=== PATIENT | female | born 1935 | race Caucasian/White ===

== ENCOUNTER 2016-12-17 19:53 | Emergency (ER) | payer MEDICARE, OTHER ==
[~2016-12-17] VITALS: Ht 147.3 cm; Wt 40.8 kg
[~2016-12-17 19:53] MED LIST: ACET500T68 PO; AMLO10TA4 PO; AMLO2.5T PO; ANAS1TAB PO; ATOR10TA60 PO; BENA20TA2 PO; CHOL100016 PO; CYAN10005 PO; FENO48TA2 PO; FERR-26 PO; GENT30OI2 TP; GLIM4TAB2 PO; HYDR12.58 PO; LEVO750T31 PO; MELO7.5T29 PO; METF-620 PO; METF750T2 PO; OMEP40CA5 PO; ONDA4TAB12 PO; PANT40TA3 PO; POTASSIUM CHLO10 MEQ PO; PROC5TAB PO; SILV20CR14 TP; SITA100T PO; SITA50TA PO; SUCR1TAB PO; [UNRECOGNIZED DRUG - CODE] TP
[2016-12-17] MEDS ORDERED: DIPHTH,PERTUSS(ACELL),TET TOX 0.5 ML DISP.SYRIN. VAX IM ONE (20:15)
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
--- NOTE | 2016-12-17 21:33 | RAD ---
CT Head W/O Contrast: History: FALL, HEAD PAIN, PRIOR SENT Comparison: October 23, 2014 Axial images were obtained without contrast. There is moderate diffuse atrophy. There is no mass effect, extraaxial fluid collections or hydrocephalus. There is no focal loss of lino-white matter distinction to suggest acute ischemia, i.e. stroke. Impression: No acute findings. End impression CT C-Spine without contrast: Clinical History: FALL, HEAD PAIN, PRIOR SENT Technique: Axial helical images of the cervical spine were obtained without contrast, axial coronal and sagittal reconstruction was performed. Findings: There is no loss of vertebral body stature. There is no prevertebral soft tissue swelling. There is grade 1 anterolisthesis of C7 on T1. This is unchanged from the April 09, 2014 CT. There is straightening of the normal cervical lordosis which can be positional or could be chronic. The C1-C2 relationship is normal. The visualized osseous structures appear normal. Evaluation of the central canal is limited without contrast. There is multiple posterior disc bulges resulting in flattening of the thecal sac. There does not appear to be gross flattening of the cervical cord. There is moderate narrowing of multiple neuroforamen. Impression: No acute findings. Clinical correlation suggested. PQRS Compliance Statement: One or more of the following individualized dose reduction techniques were utilized for this examination: 1. Automated exposure control 2. Adjustment of the mA and/or kV according to patient size 3. Use of iterative reconstruction technique Electronically signed by: Oswald Means III, MD (12/17/2016 9:30 PM) [facility]
[2016-12-17 21:50] VITALS: BP 122/58
== END 2016-12-17 21:55 | disposition home or self-care (01) ==
LOC: ER 19:53
DX: S00.83XA Contusion of other part of head, initial encounter (principal); F03.90 Unspecified dementia, unspecified severity, without behavioral disturbance, psychotic disturbance, mood disturbance, and anxiety; E11.9 Type 2 diabetes mellitus without complications; I10 Essential (primary) hypertension; E78.00 Pure hypercholesterolemia, unspecified; M19.90 Unspecified osteoarthritis, unspecified site; Z87.820 Personal history of traumatic brain injury; Z88.0 Allergy status to penicillin; Z88.2 Allergy status to sulfonamides; Z88.6 Allergy status to analgesic agent; Z88.1 Allergy status to other antibiotic agents; W07.XXXA Fall from chair, initial encounter; Y93.89 Activity, other specified; Y99.8 Other external cause status; Y92.89 Other specified places as the place of occurrence of the external cause
CPT/HCPCS: 70450; 72125; 90471; 90715; 99284-25

== ENCOUNTER → 2017-01-25 | Outpatient (CLI) | payer MEDICARE, OTHER | END | disposition home or self-care (01) | LOC: PMGWOUND 09:09 | PROVIDERS: ATTEND Preventive Medicine Undersea and Hyperbaric Medicine | DX: E11.622 Type 2 diabetes mellitus with other skin ulcer (principal); L98.491 Non-pressure chronic ulcer of skin of other sites limited to breakdown of skin; L89.223 Pressure ulcer of left hip, stage 3; L89.152 Pressure ulcer of sacral region, stage 2; F03.90 Unspecified dementia, unspecified severity, without behavioral disturbance, psychotic disturbance, mood disturbance, and anxiety; I10 Essential (primary) hypertension; K21.9 Gastro-esophageal reflux disease without esophagitis; M19.90 Unspecified osteoarthritis, unspecified site; Z87.01 Personal history of pneumonia (recurrent); Z85.3 Personal history of malignant neoplasm of breast | CPT/HCPCS: 99214 ==

== ENCOUNTER → 2017-02-02 | Outpatient (CLI) | payer MEDICARE, OTHER | END | disposition home or self-care (01) | LOC: PMGWOUND 08:55 | PROVIDERS: ATTEND Emergency Medicine Undersea and Hyperbaric Medicine | DX: L89.223 Pressure ulcer of left hip, stage 3 (principal); L89.152 Pressure ulcer of sacral region, stage 2; E11.622 Type 2 diabetes mellitus with other skin ulcer; L98.491 Non-pressure chronic ulcer of skin of other sites limited to breakdown of skin; F03.90 Unspecified dementia, unspecified severity, without behavioral disturbance, psychotic disturbance, mood disturbance, and anxiety; K21.9 Gastro-esophageal reflux disease without esophagitis; M19.90 Unspecified osteoarthritis, unspecified site; E78.00 Pure hypercholesterolemia, unspecified; Z85.3 Personal history of malignant neoplasm of breast | CPT/HCPCS: 99214 ==

== ENCOUNTER → 2017-02-09 | Outpatient (CLI) | payer MEDICARE, OTHER | END | disposition home or self-care (01) | LOC: PMGWOUND 08:52 | PROVIDERS: ATTEND Emergency Medicine Undersea and Hyperbaric Medicine | DX: L89.152 Pressure ulcer of sacral region, stage 2 (principal); E11.622 Type 2 diabetes mellitus with other skin ulcer; L89.223 Pressure ulcer of left hip, stage 3; F03.90 Unspecified dementia, unspecified severity, without behavioral disturbance, psychotic disturbance, mood disturbance, and anxiety; I10 Essential (primary) hypertension; K21.9 Gastro-esophageal reflux disease without esophagitis; M19.90 Unspecified osteoarthritis, unspecified site; Z85.3 Personal history of malignant neoplasm of breast | CPT/HCPCS: 99214 ==

== ENCOUNTER → 2017-02-16 | Outpatient (CLI) | payer MEDICARE, OTHER | END | disposition home or self-care (01) | LOC: PMGWOUND 08:47 | PROVIDERS: ATTEND Emergency Medicine Undersea and Hyperbaric Medicine | DX: L89.223 Pressure ulcer of left hip, stage 3 (principal); I10 Essential (primary) hypertension; K21.9 Gastro-esophageal reflux disease without esophagitis; F03.90 Unspecified dementia, unspecified severity, without behavioral disturbance, psychotic disturbance, mood disturbance, and anxiety; M19.90 Unspecified osteoarthritis, unspecified site; E78.00 Pure hypercholesterolemia, unspecified; Z85.3 Personal history of malignant neoplasm of breast | CPT/HCPCS: 97597 ==

== ENCOUNTER → 2017-02-23 | Outpatient (CLI) | payer MEDICARE, OTHER | END | disposition home or self-care (01) | LOC: PMGWOUND 09:19 | PROVIDERS: ATTEND Emergency Medicine Undersea and Hyperbaric Medicine | DX: L89.223 Pressure ulcer of left hip, stage 3 (principal); I10 Essential (primary) hypertension; K21.9 Gastro-esophageal reflux disease without esophagitis; E78.00 Pure hypercholesterolemia, unspecified; F03.90 Unspecified dementia, unspecified severity, without behavioral disturbance, psychotic disturbance, mood disturbance, and anxiety; M19.90 Unspecified osteoarthritis, unspecified site; Z85.3 Personal history of malignant neoplasm of breast | CPT/HCPCS: 97597 ==

== ENCOUNTER → 2017-03-02 | Outpatient (CLI) | payer MEDICARE, OTHER | END | disposition home or self-care (01) | LOC: PMGWOUND 08:54 | PROVIDERS: ATTEND Emergency Medicine Undersea and Hyperbaric Medicine | DX: L89.223 Pressure ulcer of left hip, stage 3 (principal); I10 Essential (primary) hypertension; K21.9 Gastro-esophageal reflux disease without esophagitis; E78.00 Pure hypercholesterolemia, unspecified; F03.90 Unspecified dementia, unspecified severity, without behavioral disturbance, psychotic disturbance, mood disturbance, and anxiety; M19.90 Unspecified osteoarthritis, unspecified site; Z85.3 Personal history of malignant neoplasm of breast | CPT/HCPCS: 99214 ==

== ENCOUNTER → 2017-03-16 | Outpatient (CLI) | payer MEDICARE, OTHER | END | disposition home or self-care (01) | LOC: PMGWOUND 08:45 | PROVIDERS: ATTEND Emergency Medicine Undersea and Hyperbaric Medicine | DX: L89.223 Pressure ulcer of left hip, stage 3 (principal); I10 Essential (primary) hypertension; K21.9 Gastro-esophageal reflux disease without esophagitis; E78.00 Pure hypercholesterolemia, unspecified; F03.90 Unspecified dementia, unspecified severity, without behavioral disturbance, psychotic disturbance, mood disturbance, and anxiety; M19.90 Unspecified osteoarthritis, unspecified site; Z85.3 Personal history of malignant neoplasm of breast | CPT/HCPCS: 99214 ==

== ENCOUNTER → 2017-03-30 | Outpatient (CLI) | payer MEDICARE, OTHER | END | disposition home or self-care (01) | LOC: PMGWOUND 08:22 | PROVIDERS: ATTEND Emergency Medicine Undersea and Hyperbaric Medicine | DX: E11.622 Type 2 diabetes mellitus with other skin ulcer (principal); L89.223 Pressure ulcer of left hip, stage 3; I10 Essential (primary) hypertension; L98.491 Non-pressure chronic ulcer of skin of other sites limited to breakdown of skin; K21.9 Gastro-esophageal reflux disease without esophagitis; F03.90 Unspecified dementia, unspecified severity, without behavioral disturbance, psychotic disturbance, mood disturbance, and anxiety; M19.90 Unspecified osteoarthritis, unspecified site; E78.00 Pure hypercholesterolemia, unspecified; Z85.3 Personal history of malignant neoplasm of breast | CPT/HCPCS: 99214 ==

== ENCOUNTER → 2017-05-04 | Outpatient (CLI) | payer MEDICARE, OTHER | END | disposition home or self-care (01) | LOC: PMGWOUND 09:08 | DX: E11.622 Type 2 diabetes mellitus with other skin ulcer (principal); L89.223 Pressure ulcer of left hip, stage 3; L98.491 Non-pressure chronic ulcer of skin of other sites limited to breakdown of skin; L89.323 Pressure ulcer of left buttock, stage 3; L98.411 Non-pressure chronic ulcer of buttock limited to breakdown of skin; I10 Essential (primary) hypertension; K21.9 Gastro-esophageal reflux disease without esophagitis; F03.90 Unspecified dementia, unspecified severity, without behavioral disturbance, psychotic disturbance, mood disturbance, and anxiety; M19.90 Unspecified osteoarthritis, unspecified site; E78.00 Pure hypercholesterolemia, unspecified; Z85.3 Personal history of malignant neoplasm of breast | CPT/HCPCS: 99214 ==

== ENCOUNTER → 2017-05-18 | Outpatient (CLI) | payer MEDICARE, OTHER | END | disposition home or self-care (01) | LOC: PMGWOUND 08:47 | DX: E11.622 Type 2 diabetes mellitus with other skin ulcer (principal); L89.223 Pressure ulcer of left hip, stage 3; L98.491 Non-pressure chronic ulcer of skin of other sites limited to breakdown of skin; L89.323 Pressure ulcer of left buttock, stage 3; L98.411 Non-pressure chronic ulcer of buttock limited to breakdown of skin; I10 Essential (primary) hypertension; K21.9 Gastro-esophageal reflux disease without esophagitis; M19.90 Unspecified osteoarthritis, unspecified site; E78.00 Pure hypercholesterolemia, unspecified; F03.90 Unspecified dementia, unspecified severity, without behavioral disturbance, psychotic disturbance, mood disturbance, and anxiety; Z85.3 Personal history of malignant neoplasm of breast | CPT/HCPCS: 99215 ==

== ENCOUNTER → 2017-05-24 | Outpatient (CLI) | payer MEDICARE, OTHER | END | disposition home or self-care (01) | LOC: PMGWOUND 09:09 | DX: E11.622 Type 2 diabetes mellitus with other skin ulcer (principal); L89.223 Pressure ulcer of left hip, stage 3; L98.491 Non-pressure chronic ulcer of skin of other sites limited to breakdown of skin; L89.323 Pressure ulcer of left buttock, stage 3; L98.411 Non-pressure chronic ulcer of buttock limited to breakdown of skin; I10 Essential (primary) hypertension; K21.9 Gastro-esophageal reflux disease without esophagitis; M19.90 Unspecified osteoarthritis, unspecified site; E78.00 Pure hypercholesterolemia, unspecified; F03.90 Unspecified dementia, unspecified severity, without behavioral disturbance, psychotic disturbance, mood disturbance, and anxiety; Z85.3 Personal history of malignant neoplasm of breast | CPT/HCPCS: 97597 ==

== ENCOUNTER → 2017-05-31 | Outpatient (CLI) | payer MEDICARE, OTHER | END | disposition home or self-care (01) | LOC: PMGWOUND 08:53 | DX: E11.622 Type 2 diabetes mellitus with other skin ulcer (principal); L89.223 Pressure ulcer of left hip, stage 3; L98.491 Non-pressure chronic ulcer of skin of other sites limited to breakdown of skin; L89.323 Pressure ulcer of left buttock, stage 3; L98.411 Non-pressure chronic ulcer of buttock limited to breakdown of skin; I10 Essential (primary) hypertension; K21.9 Gastro-esophageal reflux disease without esophagitis; M19.90 Unspecified osteoarthritis, unspecified site; E78.00 Pure hypercholesterolemia, unspecified; F03.90 Unspecified dementia, unspecified severity, without behavioral disturbance, psychotic disturbance, mood disturbance, and anxiety; Z85.3 Personal history of malignant neoplasm of breast | CPT/HCPCS: 97597 ==

== ENCOUNTER → 2017-06-08 | Outpatient (CLI) | payer MEDICARE, OTHER | END | disposition home or self-care (01) | LOC: PMGWOUND 08:34 | DX: E11.622 Type 2 diabetes mellitus with other skin ulcer (principal); L89.223 Pressure ulcer of left hip, stage 3; L98.491 Non-pressure chronic ulcer of skin of other sites limited to breakdown of skin; I10 Essential (primary) hypertension; K21.9 Gastro-esophageal reflux disease without esophagitis; M19.90 Unspecified osteoarthritis, unspecified site; E78.00 Pure hypercholesterolemia, unspecified; F03.90 Unspecified dementia, unspecified severity, without behavioral disturbance, psychotic disturbance, mood disturbance, and anxiety; Z85.3 Personal history of malignant neoplasm of breast | CPT/HCPCS: 99214 ==

== ENCOUNTER 2017-06-09 11:58 | Inpatient (IN) | payer MEDICARE, OTHER ==
[2017-06-09 12:10] LABS: POC GLUCOSE 37 mg/dL (70-99)
[2017-06-09] MEDS ORDERED: DEXTROSE 50% 25 GM / 50ML DISP.SYRIN. IV ×2 (12:12→15:30)
[2017-06-09] MEDS: DEXTROSE 50% 25 GM / 50ML DISP.SYRIN. IV (12:17)
[2017-06-09] MEDS: IV NORMAL SALINE 1000ML BAG 1,000 ML IV (12:18)
[2017-06-09 12:19] LABS: ADD MAN DIFF? NO
[2017-06-09 12:21] LABS: BASO % 0 % (0-3); EOS # 0.1 x10^3/uL (0.0-0.7); EOS % 1 % (0-3); HEMOGLOBIN 11.3 g/dL (12.0-15.5); LYMPH # 1.6 x10^3/uL (1.0-4.8); LYMPH % 19 % (24-48); MEAN CORPUSCULAR HEMOGLOBIN 29 pg (25-35); MEAN CORPUSCULAR HGB CONC 33 g/dL (31-37); MEAN CORPUSCULAR VOLUME 86 fL (79-100); MONO # 0.6 x10^3/uL (0.0-1.1); MONO % 7 % (0-9); NEUT # 6.3 x10^3uL (1.8-7.7); NEUT % 74 % (31-73); PLATELET COUNT 365 x10^3/uL (140-400); RED BLOOD COUNT 3.93 x10^6/uL (3.50-5.40); RED CELL DISTRIBUTION WIDTH 14.1 % (11.5-14.5); WHITE BLOOD COUNT 8.5 x10^3/uL (4.0-11.0)
[2017-06-09 12:33] LABS: ANION GAP 8 (6-14); BLOOD UREA NITROGEN 22 mg/dL (7-20); BUN/CREATININE RATIO 24 (6-20); CALCIUM 9.1 mg/dL (8.5-10.1); CARBON DIOXIDE 30 mmol/L (21-32); CHLORIDE 101 mmol/L (98-107); CREATININE 0.9 mg/dL (0.6-1.0); GFR 59.9; GLUCOSE 124 mg/dL (70-99); POTASSIUM 3.5 mmol/L (3.5-5.1); SODIUM 139 mmol/L (136-145)
[2017-06-09 12:40] LABS: ALBUMIN 3.5 g/dL (3.4-5.0); ALBUMIN/GLOBULIN RATIO 0.9 (1.0-1.7); ALK PHOS 79 U/L (46-116); ALT (SGPT) 14 U/L (14-59); AST (SGOT) 15 U/L (15-37); MAGNESIUM 1.4 mg/dL (1.8-2.4); TOTAL BILIRUBIN 0.2 mg/dL (0.2-1.0); TOTAL PROTEIN 7.2 g/dL (6.4-8.2)
[2017-06-09 13:21] LABS: POC GLUCOSE 190 mg/dL (70-99)
[2017-06-09 14:20] LABS: BILIRUBIN,URINE NEGATIVE (NEG); CLARITY,URINE CLEAR; COLOR,URINE YELLOW; GLUCOSE,URINE 500 mg/dL (NEG); NITRITE,URINE NEGATIVE (NEG); PH,URINE 7.5; PROTEIN,URINE NEGATIVE (NEG-TRACE); UROBILINOGEN,URINE 0.2 mg/dL (0.2 mg/dL)
[2017-06-09 14:38] LABS: BACTERIA,URINE MANY /HPF (0-FEW); RBC,URINE 0 /HPF (0-2)
[2017-06-09 14:41] LABS: POC GLUCOSE 243 mg/dL (70-99)
[2017-06-09] MEDS ORDERED: IV NORMAL SALINE 1000ML BAG 1,000 ML IV (15:19)
[2017-06-09] MEDS ORDERED: ACETAMINOPHEN 325 MG TABLET. PO (15:30)
[2017-06-09] MEDS ORDERED: ONDANSETRON PF 4 MG/2 ML VIAL. IV (15:30)
[2017-06-09 17:26] LABS: POC GLUCOSE 286 mg/dL (70-99)
[2017-06-09] MEDS ORDERED: ONDANSETRON ODT 4 MG TAB.RAPDIS. PO (18:30)
[2017-06-09] MEDS: ATORVASTATIN CALCIUM 10 MG TABLET. PO (19:54)
[2017-06-09] MEDS: FERROUS SULFATE 325 MG TABLET. PO (19:54)
[2017-06-09 20:55] LABS: POC GLUCOSE 235 mg/dL (70-99)
[2017-06-09] MEDS: SUCRALFATE 1 GM TABLET. PO (21:57)
[2017-06-10 05:25] LABS: ADD MAN DIFF? NO
[2017-06-10 06:24] LABS: BASO % 0 % (0-3); EOS % 0 % (0-3); HEMATOCRIT 28.7 % (36.0-47.0); HEMOGLOBIN 9.5 g/dL (12.0-15.5); LYMPH # 1.1 x10^3/uL (1.0-4.8); LYMPH % 10 % (24-48); MEAN CORPUSCULAR HEMOGLOBIN 28 pg (25-35); MEAN CORPUSCULAR HGB CONC 33 g/dL (31-37); MEAN CORPUSCULAR VOLUME 85 fL (79-100); MONO # 0.6 x10^3/uL (0.0-1.1); MONO % 5 % (0-9); NEUT # 9.3 x10^3uL (1.8-7.7); NEUT % 85 % (31-73); PLATELET COUNT 290 x10^3/uL (140-400); RED BLOOD COUNT 3.36 x10^6/uL (3.50-5.40); RED CELL DISTRIBUTION WIDTH 13.9 % (11.5-14.5)
[2017-06-10 06:41] LABS: ALBUMIN 2.9 g/dL (3.4-5.0); ALBUMIN/GLOBULIN RATIO 0.9 (1.0-1.7); ALK PHOS 73 U/L (46-116); ALT (SGPT) 11 U/L (14-59); ANION GAP 11 (6-14); AST (SGOT) 11 U/L (15-37); BLOOD UREA NITROGEN 18 mg/dL (7-20); BUN/CREATININE RATIO 23 (6-20); CALCIUM 8.9 mg/dL (8.5-10.1); CARBON DIOXIDE 26 mmol/L (21-32); CHLORIDE 102 mmol/L (98-107); CREATININE 0.8 mg/dL (0.6-1.0); GFR 68.7; GLUCOSE 82 mg/dL (70-99); POTASSIUM 3.3 mmol/L (3.5-5.1); SODIUM 139 mmol/L (136-145); TOTAL BILIRUBIN 0.3 mg/dL (0.2-1.0); TOTAL PROTEIN 6.2 g/dL (6.4-8.2)
[2017-06-10] MEDS: SUCRALFATE 1 GM TABLET. PO ×2 (08:41→21:27)
[2017-06-10] MEDS: POTASSIUM CHLORIDE 10 MEQ TABLET.ER. PO (08:41)
[2017-06-10] MEDS: FENOFIBRATE 54 MG TABLET. PO (08:41)
[2017-06-10] MEDS: PANTOPRAZOLE 40 MG TABLET.DR. PO (08:42)
[2017-06-10] MEDS: FERROUS SULFATE 325 MG TABLET. PO ×2 (08:43→21:27)
[2017-06-10] MEDS ORDERED: LISINOPRIL 10 MG TABLET PO (09:00)
[2017-06-10] MEDS ORDERED: amLODIPine BESYLATE 10 MG TABLET PO (09:00)
[2017-06-10 09:26] LABS: POC GLUCOSE 67 mg/dL (70-99)
[2017-06-10 10:04] LABS: POC GLUCOSE 147 mg/dL (70-99)
[2017-06-10 11:50] LABS: POC GLUCOSE 258 mg/dL (70-99)
[2017-06-10 16:53] LABS: POC GLUCOSE 333 mg/dL (70-99)
[2017-06-10 20:10] LABS: HEMOGLOBIN A1C 6.9 % (4.8-5.6)
[2017-06-10 21:09] LABS: POC GLUCOSE 365 mg/dL (70-99)
[2017-06-10] MEDS: ATORVASTATIN CALCIUM 10 MG TABLET. PO (21:27)
[2017-06-10] MEDS: metFORMIN XR 500 MG TAB.ER.24H PO (22:57)
[2017-06-10] MEDS: INSULIN ASPART 300 UNITS/3 ML INSULN.PEN SQ (23:00)
[2017-06-11 07:59] LABS: POC GLUCOSE 101 mg/dL (70-99)
[2017-06-11] MEDS: INSULIN ASPART 300 UNITS/3 ML INSULN.PEN SQ ×2 (08:00→12:10)
[2017-06-11] MEDS ORDERED: INSULIN ASPART 300 UNITS/3 ML INSULN.PEN SQ (08:00)
[2017-06-11] MEDS: PANTOPRAZOLE 40 MG TABLET.DR. PO (08:39)
[2017-06-11] MEDS: SUCRALFATE 1 GM TABLET. PO (08:39)
[2017-06-11] MEDS: FERROUS SULFATE 325 MG TABLET. PO (08:39)
[2017-06-11] MEDS: LINAGLIPTIN 5 MG TABLET PO (08:40)
[2017-06-11] MEDS: POTASSIUM CHLORIDE 10 MEQ TABLET.ER. PO (08:40)
[2017-06-11 11:37] LABS: POC GLUCOSE 221 mg/dL (70-99)
== END 2017-06-11 14:45 | disposition home health service (06) | DRG 643 ==
LOC: ER 11:58 → 5 SOUTH 14:49
PROVIDERS: Internal Medicine
DX: E16.0 Drug-induced hypoglycemia without coma (principal); E43 Unspecified severe protein-calorie malnutrition; E11.9 Type 2 diabetes mellitus without complications; F03.90 Unspecified dementia, unspecified severity, without behavioral disturbance, psychotic disturbance, mood disturbance, and anxiety; E78.00 Pure hypercholesterolemia, unspecified; I10 Essential (primary) hypertension; M19.90 Unspecified osteoarthritis, unspecified site; Z88.6 Allergy status to analgesic agent; Z88.1 Allergy status to other antibiotic agents; Z88.0 Allergy status to penicillin
CPT/HCPCS: 36415; 71045; 80053; 81001; 82962; 83036; 83735; 85025; 87086; 93005; 96361; 96374; 99291; 99291-25; J1815; J7030; J7042

== ENCOUNTER → 2017-06-14 | Outpatient (CLI) | payer MEDICARE, OTHER | END | disposition home or self-care (01) | LOC: PMGWOUND 09:00 | DX: E11.622 Type 2 diabetes mellitus with other skin ulcer (principal); L98.491 Non-pressure chronic ulcer of skin of other sites limited to breakdown of skin; L89.223 Pressure ulcer of left hip, stage 3; L98.411 Non-pressure chronic ulcer of buttock limited to breakdown of skin; L89.322 Pressure ulcer of left buttock, stage 2; I10 Essential (primary) hypertension; K21.9 Gastro-esophageal reflux disease without esophagitis; M19.90 Unspecified osteoarthritis, unspecified site; E78.00 Pure hypercholesterolemia, unspecified; F03.90 Unspecified dementia, unspecified severity, without behavioral disturbance, psychotic disturbance, mood disturbance, and anxiety; Z85.3 Personal history of malignant neoplasm of breast | CPT/HCPCS: 97597 ==

== ENCOUNTER → 2017-06-28 | Outpatient (CLI) | payer MEDICARE, OTHER | END | disposition home or self-care (01) | LOC: PMGWOUND 09:07 | DX: E11.622 Type 2 diabetes mellitus with other skin ulcer (principal); L98.491 Non-pressure chronic ulcer of skin of other sites limited to breakdown of skin; L89.223 Pressure ulcer of left hip, stage 3; L98.411 Non-pressure chronic ulcer of buttock limited to breakdown of skin; L89.153 Pressure ulcer of sacral region, stage 3; I10 Essential (primary) hypertension; K21.9 Gastro-esophageal reflux disease without esophagitis; M19.90 Unspecified osteoarthritis, unspecified site; E78.00 Pure hypercholesterolemia, unspecified; F03.90 Unspecified dementia, unspecified severity, without behavioral disturbance, psychotic disturbance, mood disturbance, and anxiety; Z85.3 Personal history of malignant neoplasm of breast | CPT/HCPCS: 97597 ==

== ENCOUNTER → 2017-07-12 | Outpatient (CLI) | payer MEDICARE, OTHER | END | disposition home or self-care (01) | LOC: PMGWOUND 09:08 | DX: E11.622 Type 2 diabetes mellitus with other skin ulcer (principal); L98.491 Non-pressure chronic ulcer of skin of other sites limited to breakdown of skin; L89.223 Pressure ulcer of left hip, stage 3; L98.411 Non-pressure chronic ulcer of buttock limited to breakdown of skin; L89.153 Pressure ulcer of sacral region, stage 3; I10 Essential (primary) hypertension; K21.9 Gastro-esophageal reflux disease without esophagitis; M19.90 Unspecified osteoarthritis, unspecified site; E78.00 Pure hypercholesterolemia, unspecified; F03.90 Unspecified dementia, unspecified severity, without behavioral disturbance, psychotic disturbance, mood disturbance, and anxiety; Z85.3 Personal history of malignant neoplasm of breast | CPT/HCPCS: 97597 ==

== ENCOUNTER → 2017-08-02 | Outpatient (CLI) | payer MEDICARE, OTHER | END | disposition home or self-care (01) | LOC: PMGWOUND 09:05 | DX: E11.622 Type 2 diabetes mellitus with other skin ulcer (principal); L98.491 Non-pressure chronic ulcer of skin of other sites limited to breakdown of skin; L89.223 Pressure ulcer of left hip, stage 3; L98.411 Non-pressure chronic ulcer of buttock limited to breakdown of skin; L89.153 Pressure ulcer of sacral region, stage 3; I10 Essential (primary) hypertension; K21.9 Gastro-esophageal reflux disease without esophagitis; M19.90 Unspecified osteoarthritis, unspecified site; E78.00 Pure hypercholesterolemia, unspecified; F03.90 Unspecified dementia, unspecified severity, without behavioral disturbance, psychotic disturbance, mood disturbance, and anxiety; Z85.3 Personal history of malignant neoplasm of breast | CPT/HCPCS: G0463 ==

== ENCOUNTER 2017-08-11 15:16 | Inpatient (IN) | payer MEDICARE, OTHER ==
[2017-08-11 16:02] LABS: POC GLUCOSE 452 mg/dL (70-99)
[2017-08-11 16:12] LABS: BILIRUBIN,URINE NEGATIVE (NEG); CLARITY,URINE CLEAR; COLOR,URINE YELLOW; GLUCOSE,URINE >=1000 mg/dL (NEG); NITRITE,URINE POSITIVE (NEG); PROTEIN,URINE NEGATIVE (NEG-TRACE); UROBILINOGEN,URINE 0.2 mg/dL (0.2 mg/dL)
[2017-08-11 16:31] LABS: ADD MAN DIFF? NO
[2017-08-11 16:33] LABS: BASO % 1 % (0-3); EOS # 0.1 x10^3/uL (0.0-0.7); EOS % 1 % (0-3); HEMATOCRIT 32.2 % (36.0-47.0); HEMOGLOBIN 10.7 g/dL (12.0-15.5); LYMPH # 1.4 x10^3/uL (1.0-4.8); LYMPH % 21 % (24-48); MEAN CORPUSCULAR HEMOGLOBIN 28 pg (25-35); MEAN CORPUSCULAR HGB CONC 33 g/dL (31-37); MEAN CORPUSCULAR VOLUME 86 fL (79-100); MONO # 0.4 x10^3/uL (0.0-1.1); MONO % 6 % (0-9); NEUT # 4.9 x10^3uL (1.8-7.7); NEUT % 72 % (31-73); PLATELET COUNT 307 x10^3/uL (140-400); RED BLOOD COUNT 3.77 x10^6/uL (3.50-5.40); WHITE BLOOD COUNT 6.8 x10^3/uL (4.0-11.0)
[2017-08-11 16:34] LABS: BACTERIA,URINE FEW /HPF (0-FEW); RBC,URINE 0 /HPF (0-2); SQUAMOUS EPITHELIAL CELL,UR OCC /LPF
[2017-08-11 17:02] LABS: ANION GAP 8 (6-14); BLOOD UREA NITROGEN 44 mg/dL (7-20); CALCIUM 9.8 mg/dL (8.5-10.1); CARBON DIOXIDE 30 mmol/L (21-32); CHLORIDE 95 mmol/L (98-107); CREATININE 1.2 mg/dL (0.6-1.0); GLUCOSE 433 mg/dL (70-99); POTASSIUM 3.9 mmol/L (3.5-5.1); SODIUM 133 mmol/L (136-145)
[2017-08-11 17:07] LABS: ALBUMIN 3.3 g/dL (3.4-5.0); ALK PHOS 99 U/L (46-116); ALT (SGPT) 19 U/L (14-59); AST (SGOT) 17 U/L (15-37); DIRECT BILIRUBIN 0.1 mg/dL (0.0-0.2); LIPASE 64 U/L (73-393); TOTAL BILIRUBIN 0.3 mg/dL (0.2-1.0); TOTAL PROTEIN 6.3 g/dL (6.4-8.2)
[2017-08-11 17:13] LABS: TROPONINI < 0.017 ng/mL (0.000-0.055)
[2017-08-11] MEDS ORDERED: MORPHINE SULFATE 2 MG/ML DISP.SYRIN. IV (17:45)
[2017-08-11] MEDS ORDERED: MORPHINE SULFATE 4 MG/ML DISP.SYRIN. IV (17:52)
[2017-08-11] MEDS: IV NORMAL SALINE 1000ML BAG 1,000 ML IV ×2 (19:06→20:45)
[2017-08-11 20:32] LABS: POC GLUCOSE 331 mg/dL (70-99)
[2017-08-11] MEDS ORDERED: DEXTROSE 50% 25 GM / 50ML DISP.SYRIN. IV (20:45)
[2017-08-11] MEDS: INSULIN ASPART 300 UNITS/3 ML INSULN.PEN SQ (21:57)
[2017-08-12] MEDS: ACETAMINOPHEN 325 MG TABLET. PO ×2 (00:31→21:01)
[2017-08-12 01:25] LABS: POC GLUCOSE 244 mg/dL (70-99)
[2017-08-12] MEDS: INSULIN ASPART 300 UNITS/3 ML INSULN.PEN SQ ×7 (01:27→21:05)
[2017-08-12 02:59] LABS: ADD MAN DIFF? NO
[2017-08-12 03:01] LABS: BASO % 0 % (0-3); EOS # 0.1 x10^3/uL (0.0-0.7); EOS % 1 % (0-3); HEMATOCRIT 29.7 % (36.0-47.0); LYMPH % 12 % (24-48); MEAN CORPUSCULAR HEMOGLOBIN 28 pg (25-35); MEAN CORPUSCULAR HGB CONC 34 g/dL (31-37); MEAN CORPUSCULAR VOLUME 85 fL (79-100); MONO # 0.6 x10^3/uL (0.0-1.1); MONO % 7 % (0-9); NEUT # 6.4 x10^3uL (1.8-7.7); NEUT % 80 % (31-73); PLATELET COUNT 290 x10^3/uL (140-400); RED BLOOD COUNT 3.51 x10^6/uL (3.50-5.40); RED CELL DISTRIBUTION WIDTH 12.8 % (11.5-14.5)
[2017-08-12 03:11] LABS: ANION GAP 8 (6-14); BLOOD UREA NITROGEN 34 mg/dL (7-20); CALCIUM 8.8 mg/dL (8.5-10.1); CARBON DIOXIDE 28 mmol/L (21-32); CHLORIDE 99 mmol/L (98-107); CREATININE 0.9 mg/dL (0.6-1.0); GFR 59.9; GLUCOSE 265 mg/dL (70-99); POTASSIUM 3.2 mmol/L (3.5-5.1); SODIUM 135 mmol/L (136-145)
[2017-08-12] MEDS ORDERED: PNEUMOCOCCAL VAX SCREEN BY RX. MC ×2 (04:00)
[2017-08-12] MEDS: IV NORMAL SALINE 1000ML BAG 1,000 ML IV (04:47)
[2017-08-12 05:21] LABS: POC GLUCOSE 225 mg/dL (70-99)
[2017-08-12 08:30] LABS: POC GLUCOSE 227 mg/dL (70-99)
[2017-08-12] MEDS: ONDANSETRON PF 4 MG/2 ML VIAL. IV (08:30)
[2017-08-12 11:34] LABS: POC GLUCOSE 198 mg/dL (70-99)
[2017-08-12 16:41] LABS: POC GLUCOSE 437 mg/dL (70-99)
[2017-08-12] MEDS ORDERED: ONDANSETRON ODT 4 MG TAB.RAPDIS. PO (18:15)
[2017-08-12 20:08] LABS: MRSA BY PCR Negative (Negative)
[2017-08-12] MEDS: metFORMIN XR 500 MG TAB.ER.24H PO (21:00)
[2017-08-12] MEDS: ATORVASTATIN CALCIUM 10 MG TABLET. PO (21:01)
[2017-08-12] MEDS: LACTOBACILLUS RHAMNOSUS GG 1 CAPSULE. PO (21:01)
[2017-08-12] MEDS: SUCRALFATE 1 GM TABLET. PO (21:01)
[2017-08-13 00:06] LABS: POC GLUCOSE 379 mg/dL (70-99)
[2017-08-13 00:06] LABS: POC GLUCOSE 173 mg/dL (70-99)
[2017-08-13] MEDS: INSULIN ASPART 300 UNITS/3 ML INSULN.PEN SQ ×7 (03:51→23:57)
[2017-08-13] MEDS: PANTOPRAZOLE 40 MG TABLET.DR. PO (06:05)
[2017-08-13 08:02] LABS: POC GLUCOSE 112 mg/dL (70-99)
[2017-08-13 08:26] LABS: ANION GAP 11 (6-14); BLOOD UREA NITROGEN 19 mg/dL (7-20); CALCIUM 8.6 mg/dL (8.5-10.1); CARBON DIOXIDE 25 mmol/L (21-32); CHLORIDE 106 mmol/L (98-107); CREATININE 0.8 mg/dL (0.6-1.0); GFR 68.7; GLUCOSE 125 mg/dL (70-99); POTASSIUM 3.6 mmol/L (3.5-5.1); SODIUM 142 mmol/L (136-145)
[2017-08-13] MEDS: hydroCHLOROthiazide 12.5 MG CAPSULE PO (09:19)
[2017-08-13] MEDS: LACTOBACILLUS RHAMNOSUS GG 1 CAPSULE. PO ×2 (09:19→21:19)
[2017-08-13] MEDS: LISINOPRIL 10 MG TABLET PO (09:19)
[2017-08-13] MEDS: POTASSIUM CHLORIDE 10 MEQ TABLET.ER. PO (09:19)
[2017-08-13] MEDS: SUCRALFATE 1 GM TABLET. PO ×2 (09:19→21:18)
[2017-08-13] MEDS: amLODIPine BESYLATE 10 MG TABLET PO (09:19)
[2017-08-13] MEDS: FERROUS SULFATE 325 MG TABLET. PO ×2 (09:19→16:34)
[2017-08-13] MEDS: ERGOCALCIFEROL (VITAMIN D2) 50,000 UNIT CAPSULE. PO (09:19)
[2017-08-13 11:53] LABS: POC GLUCOSE 219 mg/dL (70-99)
[2017-08-13] MEDS: ACETAMINOPHEN 325 MG TABLET. PO ×2 (16:34→21:18)
[2017-08-13 16:54] LABS: POC GLUCOSE 188 mg/dL (70-99)
[2017-08-13 20:49] LABS: POC GLUCOSE 189 mg/dL (70-99)
[2017-08-13] MEDS: ATORVASTATIN CALCIUM 10 MG TABLET. PO (21:19)
[2017-08-13] MEDS: metFORMIN XR 500 MG TAB.ER.24H PO (21:19)
[2017-08-14] MEDS: INSULIN ASPART 300 UNITS/3 ML INSULN.PEN SQ ×6 (04:00→23:27)
[2017-08-14 04:13] LABS: POC GLUCOSE 166 mg/dL (70-99)
[2017-08-14 04:14] LABS: POC GLUCOSE 147 mg/dL (70-99)
[2017-08-14] MEDS: PANTOPRAZOLE 40 MG TABLET.DR. PO (05:10)
[2017-08-14 07:53] LABS: POC GLUCOSE 148 mg/dL (70-99)
[2017-08-14] MEDS: hydroCHLOROthiazide 12.5 MG CAPSULE PO (09:00)
[2017-08-14] MEDS: amLODIPine BESYLATE 10 MG TABLET PO ×2 (09:00→09:13)
[2017-08-14] MEDS: LISINOPRIL 10 MG TABLET PO (09:00)
[2017-08-14] MEDS: SUCRALFATE 1 GM TABLET. PO ×2 (09:11→19:57)
[2017-08-14] MEDS: POTASSIUM CHLORIDE 10 MEQ TABLET.ER. PO (09:12)
[2017-08-14] MEDS: FERROUS SULFATE 325 MG TABLET. PO ×2 (09:12→16:14)
[2017-08-14] MEDS: LACTOBACILLUS RHAMNOSUS GG 1 CAPSULE. PO ×2 (09:13→19:57)
[2017-08-14 11:54] LABS: POC GLUCOSE 225 mg/dL (70-99)
[2017-08-14 16:19] LABS: POC GLUCOSE 384 mg/dL (70-99)
[2017-08-14] MEDS: LINAGLIPTIN 5 MG TABLET PO (17:34)
[2017-08-14] MEDS: metFORMIN XR 500 MG TAB.ER.24H PO (17:35)
[2017-08-14] MEDS: ATORVASTATIN CALCIUM 10 MG TABLET. PO (19:56)
[2017-08-14] MEDS: ACETAMINOPHEN 325 MG TABLET. PO (19:57)
[2017-08-14 20:45] LABS: POC GLUCOSE 365 mg/dL (70-99)
[2017-08-14 23:27] LABS: POC GLUCOSE 200 mg/dL (70-99)
[2017-08-15] MEDS: INSULIN ASPART 300 UNITS/3 ML INSULN.PEN SQ ×5 (03:52→20:31)
[2017-08-15 03:54] LABS: POC GLUCOSE 104 mg/dL (70-99)
[2017-08-15 04:06] LABS: POC GLUCOSE 89 mg/dL (70-99)
[2017-08-15] MEDS: PANTOPRAZOLE 40 MG TABLET.DR. PO (05:32)
[2017-08-15 07:45] LABS: POC GLUCOSE 140 mg/dL (70-99)
[2017-08-15] MEDS: FERROUS SULFATE 325 MG TABLET. PO ×2 (09:19→17:02)
[2017-08-15] MEDS: metFORMIN XR 500 MG TAB.ER.24H PO ×2 (09:20→09:36)
[2017-08-15] MEDS: SUCRALFATE 1 GM TABLET. PO ×2 (09:20→20:30)
[2017-08-15] MEDS: LACTOBACILLUS RHAMNOSUS GG 1 CAPSULE. PO ×2 (09:20→20:30)
[2017-08-15] MEDS: POTASSIUM CHLORIDE 10 MEQ TABLET.ER. PO ×2 (09:21→09:36)
[2017-08-15] MEDS: amLODIPine BESYLATE 10 MG TABLET PO (09:21)
[2017-08-15] MEDS: LISINOPRIL 10 MG TABLET PO (09:22)
[2017-08-15] MEDS: LINAGLIPTIN 5 MG TABLET PO (09:22)
[2017-08-15 09:29] LABS: ADD MAN DIFF? NO
[2017-08-15 09:34] LABS: BASO % 0 % (0-3); EOS # 0.1 x10^3/uL (0.0-0.7); EOS % 1 % (0-3); HEMATOCRIT 30.3 % (36.0-47.0); HEMOGLOBIN 10.1 g/dL (12.0-15.5); LYMPH # 1.5 x10^3/uL (1.0-4.8); LYMPH % 21 % (24-48); MEAN CORPUSCULAR HEMOGLOBIN 29 pg (25-35); MEAN CORPUSCULAR HGB CONC 33 g/dL (31-37); MEAN CORPUSCULAR VOLUME 85 fL (79-100); MONO # 0.5 x10^3/uL (0.0-1.1); MONO % 7 % (0-9); NEUT % 71 % (31-73); PLATELET COUNT 286 x10^3/uL (140-400); RED BLOOD COUNT 3.55 x10^6/uL (3.50-5.40); RED CELL DISTRIBUTION WIDTH 13.5 % (11.5-14.5)
[2017-08-15 09:46] LABS: ALBUMIN 2.8 g/dL (3.4-5.0); ALBUMIN/GLOBULIN RATIO 0.9 (1.0-1.7); ALK PHOS 85 U/L (46-116); ALT (SGPT) 16 U/L (14-59); ANION GAP 10 (6-14); AST (SGOT) 15 U/L (15-37); BLOOD UREA NITROGEN 23 mg/dL (7-20); BUN/CREATININE RATIO 26 (6-20); CARBON DIOXIDE 26 mmol/L (21-32); CHLORIDE 104 mmol/L (98-107); CREATININE 0.9 mg/dL (0.6-1.0); GFR 59.9; GLUCOSE 150 mg/dL (70-99); POTASSIUM 3.6 mmol/L (3.5-5.1); SODIUM 140 mmol/L (136-145); TOTAL BILIRUBIN 0.4 mg/dL (0.2-1.0); TOTAL PROTEIN 5.8 g/dL (6.4-8.2)
[2017-08-15 11:40] LABS: POC GLUCOSE 246 mg/dL (70-99)
[2017-08-15] MEDS: POTASSIUM CHLORIDE 20 MEQ TABLET.ER. PO (12:24)
[2017-08-15] MEDS: metFORMIN 500 MG TABLET PO ×2 (12:25→17:03)
[2017-08-15] MEDS: VANCOMYCIN 1.25 GM in IV DEXTROSE 5% 250 ML IV (12:25)
[2017-08-15] MEDS: VANCOMYCIN PER PHARMACY MC (14:03)
[2017-08-15 16:37] LABS: POC GLUCOSE 250 mg/dL (70-99)
[2017-08-15] MEDS: ATORVASTATIN CALCIUM 10 MG TABLET. PO (20:30)
[2017-08-15 20:35] LABS: POC GLUCOSE 168 mg/dL (70-99)
[2017-08-16] MEDS: PANTOPRAZOLE 40 MG TABLET.DR. PO (04:56)
[2017-08-16 08:11] LABS: POC GLUCOSE 170 mg/dL (70-99)
[2017-08-16] MEDS: metFORMIN 500 MG TABLET PO ×3 (09:08→17:10)
[2017-08-16] MEDS: FERROUS SULFATE 325 MG TABLET. PO ×2 (09:08→17:10)
[2017-08-16] MEDS: SUCRALFATE 1 GM TABLET. PO ×2 (09:09→21:23)
[2017-08-16] MEDS: POTASSIUM CHLORIDE 20 MEQ TABLET.ER. PO (09:09)
[2017-08-16] MEDS: LACTOBACILLUS RHAMNOSUS GG 1 CAPSULE. PO ×2 (09:10→21:23)
[2017-08-16] MEDS: LISINOPRIL 10 MG TABLET PO (09:11)
[2017-08-16] MEDS: amLODIPine BESYLATE 10 MG TABLET PO (09:11)
[2017-08-16] MEDS: LINAGLIPTIN 5 MG TABLET PO (09:12)
[2017-08-16] MEDS: INSULIN ASPART 300 UNITS/3 ML INSULN.PEN SQ ×4 (09:26→21:00)
[2017-08-16 12:11] LABS: POC GLUCOSE 254 mg/dL (70-99)
[2017-08-16] MEDS: VANCOMYCIN PER PHARMACY MC (12:33)
[2017-08-16] MEDS: VANCOMYCIN 750 MG in IV DEXTROSE 5 %-0.2 % NACL 250 ML IV (13:15)
[2017-08-16 16:55] LABS: POC GLUCOSE 236 mg/dL (70-99)
[2017-08-16 20:47] LABS: POC GLUCOSE 177 mg/dL (70-99)
[2017-08-16] MEDS: ATORVASTATIN CALCIUM 10 MG TABLET. PO (21:23)
[2017-08-16 21:35] LABS: POC GLUCOSE 167 mg/dL (70-99)
[2017-08-17] MEDS: VITS A & D/LANOLIN TOPICAL OINTMENT 56GM TUBE. TP (00:23)
[2017-08-17 07:12] LABS: POC GLUCOSE 157 mg/dL (70-99)
[2017-08-17] MEDS: LACTOBACILLUS RHAMNOSUS GG 1 CAPSULE. PO ×2 (09:07→20:39)
[2017-08-17] MEDS: SUCRALFATE 1 GM TABLET. PO ×2 (09:08→20:39)
[2017-08-17] MEDS: POTASSIUM CHLORIDE 20 MEQ TABLET.ER. PO (09:08)
[2017-08-17] MEDS: PANTOPRAZOLE 40 MG TABLET.DR. PO (09:09)
[2017-08-17] MEDS: amLODIPine BESYLATE 10 MG TABLET PO (09:10)
[2017-08-17] MEDS: FERROUS SULFATE 325 MG TABLET. PO ×2 (09:10→17:01)
[2017-08-17] MEDS: LINAGLIPTIN 5 MG TABLET PO (09:10)
[2017-08-17] MEDS: metFORMIN 500 MG TABLET PO ×3 (09:10→17:01)
[2017-08-17] MEDS: LISINOPRIL 10 MG TABLET PO (09:15)
[2017-08-17] MEDS: INSULIN ASPART 300 UNITS/3 ML INSULN.PEN SQ ×4 (09:21→20:55)
[2017-08-17 12:02] LABS: POC GLUCOSE 159 mg/dL (70-99)
[2017-08-17] MEDS ORDERED: SENNOSIDES/DOCUSATE 8.6/50MG TABLET. PO (12:30)
[2017-08-17] MEDS: POLYETHYLENE GLYCOL 3350 17 GM PACKET. PO ×3 (12:34→17:15)
[2017-08-17] MEDS: LACTULOSE 20 GM/30 ML SOLUTION. PO (12:34)
[2017-08-17 12:35] LABS: GFR 53.1
[2017-08-17 16:43] LABS: POC GLUCOSE 141 mg/dL (70-99)
[2017-08-17] MEDS: ATORVASTATIN CALCIUM 10 MG TABLET. PO (20:39)
[2017-08-17] MEDS: SENNOSIDES/DOCUSATE 8.6/50MG TABLET. PO (20:39)
[2017-08-17] MEDS: ACETAMINOPHEN 325 MG TABLET. PO (20:40)
[2017-08-17 20:53] LABS: POC GLUCOSE 134 mg/dL (70-99)
[2017-08-18] MEDS: INSULIN ASPART 300 UNITS/3 ML INSULN.PEN SQ ×2 (07:30→12:35)
[2017-08-18 07:59] LABS: POC GLUCOSE 124 mg/dL (70-99)
[2017-08-18] MEDS: PANTOPRAZOLE 40 MG TABLET.DR. PO (08:38)
[2017-08-18] MEDS: metFORMIN 500 MG TABLET PO ×2 (08:39→12:29)
[2017-08-18] MEDS: POTASSIUM CHLORIDE 20 MEQ TABLET.ER. PO (08:39)
[2017-08-18] MEDS: SUCRALFATE 1 GM TABLET. PO (08:39)
[2017-08-18] MEDS: LACTOBACILLUS RHAMNOSUS GG 1 CAPSULE. PO (08:40)
[2017-08-18] MEDS: POLYETHYLENE GLYCOL 3350 17 GM PACKET. PO (08:40)
[2017-08-18] MEDS: amLODIPine BESYLATE 10 MG TABLET PO (08:40)
[2017-08-18] MEDS: LISINOPRIL 10 MG TABLET PO (08:40)
[2017-08-18] MEDS: FERROUS SULFATE 325 MG TABLET. PO (08:41)
[2017-08-18] MEDS: LINAGLIPTIN 5 MG TABLET PO (08:41)
[2017-08-18] MEDS: SENNOSIDES/DOCUSATE 8.6/50MG TABLET. PO (08:41)
[2017-08-18 16:11] LABS: POC GLUCOSE 178 mg/dL (70-99)
== END 2017-08-18 14:30 | disposition home health service (06) | DRG 682 ==
LOC: ER 15:16 → 5 NORTH 17:49
PROVIDERS: Internal Medicine
DX: N17.9 Acute kidney failure, unspecified (principal); L89.224 Pressure ulcer of left hip, stage 4; L89.152 Pressure ulcer of sacral region, stage 2; N39.0 Urinary tract infection, site not specified; E44.1 Mild protein-calorie malnutrition; Z68.1 Body mass index [BMI] 19.9 or less, adult; E11.65 Type 2 diabetes mellitus with hyperglycemia; F03.90 Unspecified dementia, unspecified severity, without behavioral disturbance, psychotic disturbance, mood disturbance, and anxiety; B96.20 Unspecified Escherichia coli [E. coli] as the cause of diseases classified elsewhere; E78.00 Pure hypercholesterolemia, unspecified; E78.5 Hyperlipidemia, unspecified; I10 Essential (primary) hypertension; K59.00 Constipation, unspecified; Z82.49 Family history of ischemic heart disease and other diseases of the circulatory system; Z88.1 Allergy status to other antibiotic agents; M19.90 Unspecified osteoarthritis, unspecified site; Z88.0 Allergy status to penicillin; Z88.2 Allergy status to sulfonamides; Z88.8 Allergy status to other drugs, medicaments and biological substances
CPT/HCPCS: 36415; 71045; 73501; 76700; 80048; 80053; 80076; 81001; 82565; 82962; 83690; 84484; 85025; 87040; 87086; 87186; 87641; 93005; 96365; 97162-GP; 97166-GO; 99285; 99285-25; J1815; J1956; J2405; J3370; J7030; P9612

== ENCOUNTER → 2017-08-30 | Outpatient (CLI) | payer MEDICARE, OTHER | END | disposition home or self-care (01) | LOC: PMGWOUND 09:05 | DX: E11.622 Type 2 diabetes mellitus with other skin ulcer (principal); L89.223 Pressure ulcer of left hip, stage 3; L98.491 Non-pressure chronic ulcer of skin of other sites limited to breakdown of skin; I10 Essential (primary) hypertension; K21.9 Gastro-esophageal reflux disease without esophagitis; M19.90 Unspecified osteoarthritis, unspecified site; E78.00 Pure hypercholesterolemia, unspecified; E11.65 Type 2 diabetes mellitus with hyperglycemia; F03.90 Unspecified dementia, unspecified severity, without behavioral disturbance, psychotic disturbance, mood disturbance, and anxiety; Z85.3 Personal history of malignant neoplasm of breast | CPT/HCPCS: 97597 ==

== ENCOUNTER → 2017-09-13 | Outpatient (CLI) | payer MEDICARE, OTHER | END | disposition home or self-care (01) | LOC: PMGWOUND 09:13 | DX: L89.223 Pressure ulcer of left hip, stage 3 (principal); I10 Essential (primary) hypertension; K21.9 Gastro-esophageal reflux disease without esophagitis; E78.00 Pure hypercholesterolemia, unspecified; F03.90 Unspecified dementia, unspecified severity, without behavioral disturbance, psychotic disturbance, mood disturbance, and anxiety; M19.90 Unspecified osteoarthritis, unspecified site; Z85.3 Personal history of malignant neoplasm of breast | CPT/HCPCS: 11042 ==

== ENCOUNTER → 2017-09-27 | Outpatient (CLI) | payer MEDICARE, OTHER | END | disposition home or self-care (01) | LOC: PMGWOUND 09:29 | DX: E11.622 Type 2 diabetes mellitus with other skin ulcer (principal); L89.223 Pressure ulcer of left hip, stage 3; L98.491 Non-pressure chronic ulcer of skin of other sites limited to breakdown of skin; L89.322 Pressure ulcer of left buttock, stage 2; E11.65 Type 2 diabetes mellitus with hyperglycemia; I10 Essential (primary) hypertension; K21.9 Gastro-esophageal reflux disease without esophagitis; E78.00 Pure hypercholesterolemia, unspecified; F03.90 Unspecified dementia, unspecified severity, without behavioral disturbance, psychotic disturbance, mood disturbance, and anxiety; M19.90 Unspecified osteoarthritis, unspecified site; E78.5 Hyperlipidemia, unspecified; Z85.3 Personal history of malignant neoplasm of breast | CPT/HCPCS: 11042; 97597 ==

== ENCOUNTER → 2017-10-04 | Outpatient (CLI) | payer MEDICARE, OTHER | END | disposition home or self-care (01) | LOC: PMGWOUND 09:30 | DX: E11.622 Type 2 diabetes mellitus with other skin ulcer (principal); L89.223 Pressure ulcer of left hip, stage 3; L98.491 Non-pressure chronic ulcer of skin of other sites limited to breakdown of skin; L89.153 Pressure ulcer of sacral region, stage 3; L89.322 Pressure ulcer of left buttock, stage 2; E11.65 Type 2 diabetes mellitus with hyperglycemia; I10 Essential (primary) hypertension; K21.9 Gastro-esophageal reflux disease without esophagitis; E78.00 Pure hypercholesterolemia, unspecified; F03.90 Unspecified dementia, unspecified severity, without behavioral disturbance, psychotic disturbance, mood disturbance, and anxiety; M19.90 Unspecified osteoarthritis, unspecified site; E78.5 Hyperlipidemia, unspecified; Z85.3 Personal history of malignant neoplasm of breast | CPT/HCPCS: 11042 ==

== ENCOUNTER → 2017-10-18 | Outpatient (CLI) | payer MEDICARE, OTHER | END | disposition home or self-care (01) | LOC: PMGWOUND 09:00 | DX: E11.622 Type 2 diabetes mellitus with other skin ulcer (principal); L89.223 Pressure ulcer of left hip, stage 3; L98.491 Non-pressure chronic ulcer of skin of other sites limited to breakdown of skin; L89.153 Pressure ulcer of sacral region, stage 3; L89.322 Pressure ulcer of left buttock, stage 2; S51.812A Laceration without foreign body of left forearm, initial encounter; S51.811A Laceration without foreign body of right forearm, initial encounter; E11.65 Type 2 diabetes mellitus with hyperglycemia; I10 Essential (primary) hypertension; K21.9 Gastro-esophageal reflux disease without esophagitis; E78.00 Pure hypercholesterolemia, unspecified; F03.90 Unspecified dementia, unspecified severity, without behavioral disturbance, psychotic disturbance, mood disturbance, and anxiety; M19.90 Unspecified osteoarthritis, unspecified site; E78.5 Hyperlipidemia, unspecified; Z85.3 Personal history of malignant neoplasm of breast; X58.XXXA Exposure to other specified factors, initial encounter; Y93.9 Activity, unspecified; Y99.8 Other external cause status; Y92.9 Unspecified place or not applicable | CPT/HCPCS: 11042; 97597 ==

== ENCOUNTER → 2017-11-08 | Outpatient (CLI) | payer MEDICARE, OTHER | END | disposition home or self-care (01) | LOC: PMGWOUND 09:17 | DX: E11.622 Type 2 diabetes mellitus with other skin ulcer (principal); L89.223 Pressure ulcer of left hip, stage 3; I10 Essential (primary) hypertension; K21.9 Gastro-esophageal reflux disease without esophagitis; E78.5 Hyperlipidemia, unspecified; E78.00 Pure hypercholesterolemia, unspecified; F03.90 Unspecified dementia, unspecified severity, without behavioral disturbance, psychotic disturbance, mood disturbance, and anxiety; M19.90 Unspecified osteoarthritis, unspecified site; Z85.3 Personal history of malignant neoplasm of breast | CPT/HCPCS: 99214 ==

== ENCOUNTER → 2018-02-15 | Outpatient (CLI) | payer MEDICARE, OTHER ==
[2017-08-18 11:00] VITALS: BP 95/52
[~2018-02-15] MED LIST changes: -AMLO2.5T PO; +AMLO2.5T3 PO; -BENA20TA2 PO; +BENA20TA4 PO; +ERGO500027 PO; -FERR-26 PO; +FERR325T14 PO; +GLIM2TAB2 PO; +HYDR25TA9 PO; +INSU100C4 SQ; +LACT1CAP19 PO; +LINA5TAB4 PO; -METF-620 PO; +METF10007 PO; +METF500T PO; +ONDA4TAB10 SL; +POTA10TA12 PO; -POTASSIUM CHLO10 MEQ PO; -PROC5TAB PO; +PROC5TAB2 PO
--- NOTE | 2018-02-15 13:29 | KCIC ---
Two-view abdomen dated 02/15/2018. No comparison available. CLINICAL INDICATION: Incontinence. Poor appetite for 2 weeks. FINDINGS: Flat and upright views the abdomen shows a large amount of stool throughout the colon. Mildly dilated loops of small and large bowel. No apparent transition point. No pneumoperitoneum or air-fluid level on the upright view. IMPRESSION: 1. Large amount stool throughout the colon. Electronically signed by: Andrew Thompson MD (02/15/2018 1:25 PM) [facility]
== END | disposition home or self-care (01) ==
LOC: KCIC 11:23
PROVIDERS: ATTEND Family Medicine
DX: Z09 Encounter for follow-up examination after completed treatment for conditions other than malignant neoplasm (principal)
CPT/HCPCS: 74021

== ENCOUNTER 2018-02-21 11:47 | Inpatient (IN) | payer MEDICARE, OTHER ==
[~2018-02-21] VITALS: Ht 167.6 cm; Wt 44.5 kg
[2018-02-21 13:15] VITALS: BP 135/55
[2018-02-21] MEDS ORDERED: VANCOMYCIN PER PHARMACY MC PRN (13:30)
[2018-02-21] MEDS: IV NORMAL SALINE 1000ML BAG 1,000 ML IV SCH (14:00)
[2018-02-21] MEDS ORDERED: ONDANSETRON ODT 4 MG TAB.RAPDIS. PO PRN ×2 (14:45→19:15)
[2018-02-21 15:00] VITALS: BP 135/55
[2018-02-21] MEDS: hydroCHLOROthiazide 12.5 MG CAPSULE PO SCH (15:08)
[2018-02-21] MEDS: amLODIPine BESYLATE 5 MG TABLET PO SCH (15:08)
[2018-02-21] MEDS: POTASSIUM CHLORIDE 10 MEQ TABLET.ER. PO SCH (15:08)
[2018-02-21] MEDS: PANTOPRAZOLE 40 MG TABLET.DR. PO SCH (15:09)
[2018-02-21] MEDS: LISINOPRIL 10 MG TABLET PO SCH (15:09)
[2018-02-21] MEDS: metFORMIN 500 MG TABLET PO SCH (16:15)
[2018-02-21] MEDS: FERROUS SULFATE 325 MG TABLET. PO SCH (16:16)
[2018-02-21] MEDS: LINAGLIPTIN 5 MG TABLET PO SCH (16:16)
--- NOTE | 2018-02-21 16:24 | PDOC ---
Infectious Disease Note Vital Sign Vital Signs Vital Signs Date Time Temp Pulse Resp B/P (MAP) Pulse Ox O2 Delivery O2 Flow Rate FiO2 02/21/18 13:15 97.5 66 17 135/55 (81) 98 Room Air 97.5 Labs Lab Laboratory Tests Test 02/21/18 15:21 Glucose (Fingerstick) 292 mg/dL (70-99) Objective Assessment Rt ischeal wound Rt and left hip wound Dementia Wheelchair bound Plan Plan of Care meropenem consult palliative care supportive care NUSRAT MAYER MD Feb 21, 2018 16:24
[2018-02-21] MEDS ORDERED: INSULIN LISPRO 300 UNITS/3 ML INSULN.PEN. SQ ONE (17:00)
[2018-02-21] MEDS: MEROPENEM 500 MG in IV NORMAL SALINE 50ML 50 ML IV SCH (17:01)
[2018-02-21 17:45] LABS: BASO % 0 % (0-3); EOS % 0 % (0-3); HEMATOCRIT 33.4 % (36.0-47.0); HEMOGLOBIN 11.2 g/dL (12.0-15.5); LYMPH % 10 % (24-48); MEAN CORPUSCULAR HEMOGLOBIN 29 pg (25-35); MEAN CORPUSCULAR HGB CONC 34 g/dL (31-37); MEAN CORPUSCULAR VOLUME 87 fL (79-100); MONO # 0.7 x10^3/uL (0.0-1.1); MONO % 7 % (0-9); NEUT # 7.9 x10^3uL (1.8-7.7); NEUT % 82 % (31-73); PLATELET COUNT 245 x10^3/uL (140-400); RED BLOOD COUNT 3.86 x10^6/uL (3.50-5.40); RED CELL DISTRIBUTION WIDTH 13.3 % (11.5-14.5); WHITE BLOOD COUNT 9.7 x10^3/uL (4.0-11.0)
[2018-02-21 17:56] LABS: CALCIUM 9.1 mg/dL (8.5-10.1); CREATININE 1.2 mg/dL (0.6-1.0)
[2018-02-21] MEDS ORDERED: AMPICILLIN/SULBACTAM 1.5 GM in IV NORMAL SALINE 50ML 50 ML IV SCH (18:00)
--- NOTE | 2018-02-21 18:04 | PDOC2 ---
PALLIATIVE CARE Palliative Care Note Palliative Care Consult requested by Dr. Espinoza to address goals of care. Medical Assessment per medical record; Rt ischeal wound Rt and left hip wound Dementia Wheelchair bound Code Status; Full Code. Will attempt to reach family and staff at [facility] to identify goals of care. CHONG DUMONT Feb 21, 2018 18:03
[2018-02-21] MEDS ORDERED: IV NORMAL SALINE 1000ML BAG 1,000 ML IV SCH (18:24)
[2018-02-21] MEDS ORDERED: ONDANSETRON PF 4 MG/2 ML VIAL. IV PRN (19:15)
[2018-02-21] MEDS ORDERED: DEXTROSE 50% 25 GM / 50ML DISP.SYRIN. IV PRN (19:15)
[2018-02-21 19:44] VITALS: BP 121/54
--- NOTE | 2018-02-21 20:52 | HP ---
ADMIT DATE: 02/21/2018 CHIEF COMPLAINT: Ischial wound and progression of dementia. HISTORY OF PRESENT ILLNESS: The patient is a pleasant elderly female who has dementia but also has lived in a retirement since she was a child, so she is cognitively challenged, I believe. 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 Dr. Webb feels the wound is just getting too far advanced, he did not want it debrided any more and he did try to go down about a centimeter or so and he has asked that we admit the patient and we are going to be consulting [facility] Specialist to consider long-term care placement. We will also be consulted Infectious Disease regarding the wound and Palliative Care to help clarify her long-term goals of care. PAST MEDICAL HISTORY: Dementia and cognitively challenged (she has lived in a retirement since she was a child) and anemia, hyperlipidemia, hypertension, GERD, diabetes and osteoporosis. ALLERGIES: Multiple including CEPHALOSPORINS, PENICILLIN, SULFA, AMOXICILLIN, ASPIRIN, CLAVULANIC ACID, SULFAMETHOXAZOLE and TRIMETHOPRIM. FAMILY HISTORY: Diabetes. SOCIAL HISTORY: She lives at a facility. She goes to daycare during the day. She has been living in a facility since she was a child according to her caregiver who is here with her. MEDICATIONS: Reviewed, please refer to MRAD. She is on iron, fenofibrate, atorvastatin, Norvasc, benazepril, potassium, hydrochlorothiazide, Zofran, Carafate, omeprazole, Glucophage and vitamins. REVIEW OF SYSTEMS: Unable to obtain. The patient really does not cognitively alert. PHYSICAL EXAMINATION: VITAL SIGNS: Temperature is afebrile, pulse 80, respirations 16, blood pressure 135/55 and O2 sat 98%. GENERAL: She is awake, mumbling in a wheelchair. Her caregiver is here and is a good support for her. HEART: Distant S1 and S2 without obvious murmurs. LUNGS: Clear. ABDOMEN: Soft. Positive bowel sounds. EXTREMITIES: Trace edema. SKIN: She has got several wounds on her right ischium and on the right and left hip. Please refer to the pictures in the chart. ENDOCRINE: No thyromegaly. LYMPHATICS: No cervical nodes. HEMATOPOIETIC: No bruising. LABORATORY DATA: White count is 9, hemoglobin 11 and platelets 245. Electrolytes are normal other than a BUN of 44, creatinine 1.2 and glucose a little high at 368. Lactic acid also high at 3.3. ASSESSMENT AND PLAN: Vlasi-nk-enbnfhl wounds with a clinical sepsis with lactic acidosis. We will treat with possible clinical sepsis with lactic acidosis and dehydration with azotemia and hyperglycemia, progression of dementia and lifelong history of cognitive issues requiring institutionalization. Basically, we are going to admit the patient, give her give her good wound care, IV antibiotics. Consult General Surgery to consider further debridement, consult Infectious Disease and consult Palliative Care to help clarify long-tem goals of care. We will try to get her home meds resumed, IV fluids, p.r.n. antiemetics, p.r.n. narcotics. Frequent labs. DVT prophylaxis. PROGNOSIS: Guarded. DENNIS GAYLE DO DR: MARIA D/jeffrey JOB#: [id number] / [id number]
[2018-02-21] MEDS: LACTOBACILLUS RHAMNOSUS GG 1 CAPSULE. PO SCH (21:27)
[2018-02-21] MEDS: SUCRALFATE 1 GM TABLET. PO SCH (21:27)
[2018-02-21] MEDS: ATORVASTATIN CALCIUM 10 MG TABLET. PO SCH (21:27)
[2018-02-21 23:34] VITALS: BP 138/53
[2018-02-22 02:48] VITALS: BP 131/48
--- NOTE | 2018-02-22 05:24 | CONS ---
DATE OF CONSULTATION: REQUESTING PHYSICIAN: Dr. Espinoza. REASON FOR CONSULTATION: Multiple wounds with infection. HISTORY OF PRESENT ILLNESS: This is an 82-year-old female who is wheelchair bound, who has developed multiple wounds, hence the patient was admitted as a direct admit. The patient is not able to provide any information. She nods here and there or mumbles few words, but no meaningful information can be obtained. The patient is not noted to have any nausea, vomiting, diarrhea, fever. PAST MEDICAL HISTORY: Positive for dementia, diabetes, hyperlipidemia, hypertension, developmental disorder. SOCIAL HISTORY: Unable to obtain, although she is in an assisted care and basically spends the whole day in wheelchair. ALLERGIES: LISTED ALLERGIC TO PENICILLIN, CEPHALOSPORINS, BACTRIM. REVIEW OF SYSTEMS: Unable to do other than what I mentioned in the HPI through the patient's nurse. The patient is not able to provide any information. CURRENT MEDICATIONS: The patient is not on any antibiotics. PHYSICAL EXAMINATION: GENERAL: Awake female, not in distress. VITAL SIGNS: Stable. She is in a position. HEENT: NAD. NECK: Supple. No JVP, no lymphadenopathy. LUNGS: Clear. HEART: S1, S2 regular. ABDOMEN: Benign. SKIN: Her worst wound is the right ischial wound, which is a black eschar, depth cannot be judged, superficial right hip and left hip wounds. EXTREMITIES: The patient is able to straighten up the legs, but is very stiff and prefers to be in a position. LABORATORY DATA: Pending. IMPRESSION: 1. Multiple decubiti, the worst one being the right ischial wound, depth cannot be judged since it is eschar; superficial left and right hip wounds. 2. Dementia. 3. Wheelchair bound. 4. Diabetes. 5. Hypertension. 6. Malnutrition. 7. Multiple medication allergy. RECOMMENDATIONS: Recommend to start meropenem. Supportive care. Offload. Question need for debridement. The patient should have communication done by Palliative Care for at least DNR/DNI, may be eventually hospice care. Thank you very much, Dr. Espinoza, for giving me the opportunity to participate in this patient's care. NUSRAT MAYER MD DR: YONATHAN/jeffrey JOB#: [id number] / [id number]
[2018-02-22] MEDS: MEROPENEM 500 MG in IV NORMAL SALINE 50ML 50 ML IV SCH ×3 (06:23→21:10)
[2018-02-22 06:45] LABS: CALCIUM 8.5 mg/dL (8.5-10.1); CREATININE 0.8 mg/dL (0.6-1.0); GFR 68.7; POTASSIUM 3.4 mmol/L (3.5-5.1)
[2018-02-22 07:00] VITALS: BP 105/55
[2018-02-22] MEDS: IV NORMAL SALINE 1000ML BAG 1,000 ML IV SCH ×3 (07:32→21:08)
[2018-02-22] MEDS: PANTOPRAZOLE 40 MG TABLET.DR. PO SCH (07:32)
[2018-02-22] MEDS: INSULIN LISPRO 300 UNITS/3 ML INSULN.PEN. SQ SCH ×3 (08:00→17:00)
[2018-02-22] MEDS: amLODIPine BESYLATE 5 MG TABLET PO SCH (09:00)
[2018-02-22] MEDS: FENOFIBRATE 54 MG TABLET. PO SCH (09:00)
[2018-02-22] MEDS: LISINOPRIL 10 MG TABLET PO SCH (09:00)
[2018-02-22] MEDS: SUCRALFATE 1 GM TABLET. PO SCH ×2 (09:13→21:10)
[2018-02-22] MEDS: FERROUS SULFATE 325 MG TABLET. PO SCH ×2 (09:13→17:44)
[2018-02-22] MEDS: LINAGLIPTIN 5 MG TABLET PO SCH (09:13)
[2018-02-22] MEDS: POTASSIUM CHLORIDE 10 MEQ TABLET.ER. PO SCH (09:14)
[2018-02-22] MEDS: LACTOBACILLUS RHAMNOSUS GG 1 CAPSULE. PO SCH ×2 (09:14→21:10)
[2018-02-22] MEDS: metFORMIN 500 MG TABLET PO SCH ×3 (09:14→17:45)
[2018-02-22] MEDS: hydroCHLOROthiazide 12.5 MG CAPSULE PO SCH (09:15)
--- NOTE | 2018-02-22 09:41 | PDOC ---
PROGRESS NOTES Chief Complaint Chief Complaint Rt ischial wound Rt and left hip wound Dementia Wheelchair bound Lactic acidosis H/o GERD H/o DM H/o osteoporosis H/o hyperlipidemia H/o HTN History of Present Illness History of Present Illness Pt seen and examined while sitting upright in bed Discussed w/RN Discussed w/caregiver at bedside Discussed w/Dr. Gooden Vitals Vitals Vital Signs Date Time Temp Pulse Resp B/P (MAP) Pulse Ox O2 Delivery O2 Flow Rate FiO2 02/22/18 09:00 82 105/55 02/22/18 07:00 100.8 16 96 Room Air 100.8 Physical Exam General: Alert, Cooperative, No acute distress Heart: Regular rate, Normal S1, Normal S2 Lungs: Clear Abdomen: Normal bowel sounds, Soft, No tenderness Extremities: Other (multiple superficial wounds on LE b/l) Skin: Other (acute on chronic wounds) Labs LABS Laboratory Tests Test 02/21/18 15:21 02/21/18 17:09 02/21/18 17:30 02/21/18 18:39 Glucose (Fingerstick) 292 mg/dL (70-99) 380 mg/dL (70-99) 288 mg/dL (70-99) White Blood Count 9.7 x10^3/uL (4.0-11.0) Red Blood Count 3.86 x10^6/uL (3.50-5.40) Hemoglobin 11.2 g/dL (12.0-15.5) Hematocrit 33.4 % (36.0-47.0) Mean Corpuscular Volume 87 fL (79-100) Mean Corpuscular Hemoglobin 29 pg (25-35) Mean Corpuscular Hemoglobin Concent 34 g/dL (31-37) Red Cell Distribution Width 13.3 % (11.5-14.5) Platelet Count 245 x10^3/uL (140-400) Neutrophils (%) (Auto) 82 % (31-73) Lymphocytes (%) (Auto) 10 % (24-48) Monocytes (%) (Auto) 7 % (0-9) Eosinophils (%) (Auto) 0 % (0-3) Basophils (%) (Auto) 0 % (0-3) Neutrophils # (Auto) 7.9 x10^3uL (1.8-7.7) Lymphocytes # (Auto) 1.0 x10^3/uL (1.0-4.8) Monocytes # (Auto) 0.7 x10^3/uL (0.0-1.1) Eosinophils # (Auto) 0.0 x10^3/uL (0.0-0.7) Basophils # (Auto) 0.0 x10^3/uL (0.0-0.2) Sodium Level 142 mmol/L (136-145) Potassium Level 4.0 mmol/L (3.5-5.1) Chloride Level 105 mmol/L (98-107) Carbon Dioxide Level 25 mmol/L (21-32) Anion Gap 12 (6-14) Blood Urea Nitrogen 44 mg/dL (7-20) Creatinine 1.2 mg/dL (0.6-1.0) Estimated GFR (Cockcroft-Gault) 43.0 Glucose Level 368 mg/dL (70-99) Lactic Acid Level 3.3 mmol/L (0.4-2.0) Calcium Level 9.1 mg/dL (8.5-10.1) Test 02/21/18 20:29 02/21/18 22:15 02/22/18 05:10 Glucose (Fingerstick) 172 mg/dL (70-99) Lactic Acid Level 3.4 mmol/L (0.4-2.0) Sodium Level 144 mmol/L (136-145) Potassium Level 3.4 mmol/L (3.5-5.1) Chloride Level 109 mmol/L (98-107) Carbon Dioxide Level 25 mmol/L (21-32) Anion Gap 10 (6-14) Blood Urea Nitrogen 30 mg/dL (7-20) Creatinine 0.8 mg/dL (0.6-1.0) Estimated GFR (Cockcroft-Gault) 68.7 Glucose Level 145 mg/dL (70-99) Calcium Level 8.5 mg/dL (8.5-10.1) Procalcitonin < 0.10 ng/mL (0.00-0.10) Review of Systems Review of Systems Pt was pleasant, cooperative and appeared to comfortable while being examined. However, she was not able to respond to questions due to cognitive disability Pt did c/o hunger Mult. superficial wounds were noted on her LE b/l Assessment and Plan Assessmemt and Plan Assessment: Rt ischial wound Rt and left hip wound Dementia Wheelchair bound Lactic acidosis H/o GERD H/o DM H/o osteoporosis H/o hyperlipidemia H/o HTN Plan: Cont IV abx Wound care Work w/palliative care re manager technical training care goals and possible hospice upon d/c IVF PRN narcotics Labs DVT ppx PT/OT/ST Home meds Comment Review of Relevant I have reviewed the following items scott (where applicable) has been applied. Labs Laboratory Tests Test 02/21/18 15:21 02/21/18 17:09 02/21/18 17:30 02/21/18 18:39 Glucose (Fingerstick) 292 mg/dL (70-99) 380 mg/dL (70-99) 288 mg/dL (70-99) White Blood Count 9.7 x10^3/uL (4.0-11.0) Red Blood Count 3.86 x10^6/uL (3.50-5.40) Hemoglobin 11.2 g/dL (12.0-15.5) Hematocrit 33.4 % (36.0-47.0) Mean Corpuscular Volume 87 fL (79-100) Mean Corpuscular Hemoglobin 29 pg (25-35) Mean Corpuscular Hemoglobin Concent 34 g/dL (31-37) Red Cell Distribution Width 13.3 % (11.5-14.5) Platelet Count 245 x10^3/uL (140-400) Neutrophils (%) (Auto) 82 % (31-73) Lymphocytes (%) (Auto) 10 % (24-48) Monocytes (%) (Auto) 7 % (0-9) Eosinophils (%) (Auto) 0 % (0-3) Basophils (%) (Auto) 0 % (0-3) Neutrophils # (Auto) 7.9 x10^3uL (1.8-7.7) Lymphocytes # (Auto) 1.0 x10^3/uL (1.0-4.8) Monocytes # (Auto) 0.7 x10^3/uL (0.0-1.1) Eosinophils # (Auto) 0.0 x10^3/uL (0.0-0.7) Basophils # (Auto) 0.0 x10^3/uL (0.0-0.2) Sodium Level 142 mmol/L (136-145) Potassium Level 4.0 mmol/L (3.5-5.1) Chloride Level 105 mmol/L (98-107) Carbon Dioxide Level 25 mmol/L (21-32) Anion Gap 12 (6-14) Blood Urea Nitrogen 44 mg/dL (7-20) Creatinine 1.2 mg/dL (0.6-1.0) Estimated GFR (Cockcroft-Gault) 43.0 Glucose Level 368 mg/dL (70-99) Lactic Acid Level 3.3 mmol/L (0.4-2.0) Calcium Level 9.1 mg/dL (8.5-10.1) Test 02/21/18 20:29 02/21/18 22:15 02/22/18 05:10 Glucose (Fingerstick) 172 mg/dL (70-99) Lactic Acid Level 3.4 mmol/L (0.4-2.0) Sodium Level 144 mmol/L (136-145) Potassium Level 3.4 mmol/L (3.5-5.1) Chloride Level 109 mmol/L (98-107) Carbon Dioxide Level 25 mmol/L (21-32) Anion Gap 10 (6-14) Blood Urea Nitrogen 30 mg/dL (7-20) Creatinine 0.8 mg/dL (0.6-1.0) Estimated GFR (Cockcroft-Gault) 68.7 Glucose Level 145 mg/dL (70-99) Calcium Level 8.5 mg/dL (8.5-10.1) Procalcitonin < 0.10 ng/mL (0.00-0.10) Laboratory Tests Test 02/21/18 15:21 02/21/18 17:09 02/21/18 17:30 02/21/18 18:39 Glucose (Fingerstick) 292 mg/dL (70-99) 380 mg/dL (70-99) 288 mg/dL (70-99) White Blood Count 9.7 x10^3/uL (4.0-11.0) Red Blood Count 3.86 x10^6/uL (3.50-5.40) Hemoglobin 11.2 g/dL (12.0-15.5) Hematocrit 33.4 % (36.0-47.0) Mean Corpuscular Volume 87 fL (79-100) Mean Corpuscular Hemoglobin 29 pg (25-35) Mean Corpuscular Hemoglobin Concent 34 g/dL (31-37) Red Cell Distribution Width 13.3 % (11.5-14.5) Platelet Count 245 x10^3/uL (140-400) Neutrophils (%) (Auto) 82 % (31-73) Lymphocytes (%) (Auto) 10 % (24-48) Monocytes (%) (Auto) 7 % (0-9) Eosinophils (%) (Auto) 0 % (0-3) Basophils (%) (Auto) 0 % (0-3) Neutrophils # (Auto) 7.9 x10^3uL (1.8-7.7) Lymphocytes # (Auto) 1.0 x10^3/uL (1.0-4.8) Monocytes # (Auto) 0.7 x10^3/uL (0.0-1.1) Eosinophils # (Auto) 0.0 x10^3/uL (0.0-0.7) Basophils # (Auto) 0.0 x10^3/uL (0.0-0.2) Sodium Level 142 mmol/L (136-145) Potassium Level 4.0 mmol/L (3.5-5.1) Chloride Level 105 mmol/L (98-107) Carbon Dioxide Level 25 mmol/L (21-32) Anion Gap 12 (6-14) Blood Urea Nitrogen 44 mg/dL (7-20) Creatinine 1.2 mg/dL (0.6-1.0) Estimated GFR (Cockcroft-Gault) 43.0 Glucose Level 368 mg/dL (70-99) Lactic Acid Level 3.3 mmol/L (0.4-2.0) Calcium Level 9.1 mg/dL (8.5-10.1) Test 02/21/18 20:29 02/21/18 22:15 02/22/18 05:10 Glucose (Fingerstick) 172 mg/dL (70-99) Lactic Acid Level 3.4 mmol/L (0.4-2.0) Sodium Level 144 mmol/L (136-145) Potassium Level 3.4 mmol/L (3.5-5.1) Chloride Level 109 mmol/L (98-107) Carbon Dioxide Level 25 mmol/L (21-32) Anion Gap 10 (6-14) Blood Urea Nitrogen 30 mg/dL (7-20) Creatinine 0.8 mg/dL (0.6-1.0) Estimated GFR (Cockcroft-Gault) 68.7 Glucose Level 145 mg/dL (70-99) Calcium Level 8.5 mg/dL (8.5-10.1) Procalcitonin < 0.10 ng/mL (0.00-0.10) Medications Current Medications Vancomycin HCl (Vanco Per Pharmacy) 1 each PRN DAILY PRN MC SEE COMMENTS; Start 02/21/18 at 13:30; Stop 02/21/18 at 17:03; Status DC Sodium Chloride 1,000 ml @ 75 mls/hr [id number] IV Last administered on at 07:32; Start 02/21/18 at 14:00 Atorvastatin Calcium (Lipitor) 10 mg HS PO Last administered on 02/21/18at 21: 27; Start 02/21/18 at 21:00 Ergocalciferol (Vitamin D2) 50,000 unit WEEKLY PO ; Start 02/28/18 at 09:00 Ferrous Sulfate (Feosol) 325 mg BIDWMEALS PO Last administered on 02/22/18at 09 :13; Start 02/21/18 at 17:00 Lactobacillus Rhamnosus (Culturelle) 1 cap BID PO Last administered on at 09:14; Start 02/21/18 at 21:00 Ondansetron HCl (Zofran Odt) 4 mg PRN Q8HRS PRN PO NAUSEA; Start 02/21/18 at 14:45; Stop 02/21/18 at 19:15; Status DC Potassium Chloride (Klor-Con) 10 meq DAILY PO Last administered on 02/22/18at 09:14; Start 02/21/18 at 15:30 Lisinopril (Prinivil) 10 mg DAILY PO ; Start 02/21/18 at 15:30 Fenofibrate (Lofibra) 54 mg DAILY PO ; Start 02/22/18 at 09:00 Hydrochlorothiazide (Microzide) 12.5 mg DAILY PO Last administered on at 09:15; Start 02/21/18 at 15:30 Linagliptin (Tradjenta) 5 mg DAILY PO Last administered on 02/22/18at 09:13; Start 02/21/18 at 15:30 Metformin HCl (Glucophage) 500 mg TIDWMEALS PO Last administered on 02/22/18at 09:14; Start 02/21/18 at 17:00 Pantoprazole Sodium (Protonix) 40 mg DAILYAC PO Last administered on at 07:32; Start 02/21/18 at 15:30 Sucralfate (Carafate) 1 gm BID PO Last administered on 02/22/18at 09:13; Start 02/21/18 at 21:00 Amlodipine Besylate (Norvasc) 5 mg DAILY PO ; Start 02/21/18 at 15:30 Ampicillin Sodium/ Sulbactam Sodium 1.5 gm/Sodium Chloride 50 ml @ 100 mls/hr Q6HRS IV ; Start 02/21/18 at 18:00; Stop 02/21/18 at 18:00; Status DC Meropenem 500 mg/ Sodium Chloride 50 ml @ 100 mls/hr Q8HRS IV Last administered on 02/22/18at 06:23; Start 02/21/18 at 17:00 Insulin Human Lispro (HumaLOG) 10 units 1X ONCE SQ Last administered on at 17:27; Start 02/21/18 at 17:00; Stop 02/21/18 at 17:01; Status DC Sodium Chloride 1,000 ml @ 166.667 mls/hr Q6H IV Last administered on at 18:24; Start 02/21/18 at 18:24; Stop 02/21/18 at 19:43; Status DC Dobutamine HCl/ Dextrose 250 ml @ 0 mls/hr CONT PRN IV SEE I/O RECORD; Start 02/21/18 at 18:30; Stop 02/21/18 at 18:35; Status DC Acetaminophen/ Hydrocodone Bitart (Lortab 5/325) 1 tab PRN Q4HRS PRN PO PAIN; Start 02/21/18 at 19:15 Acetaminophen (Tylenol) 500 mg PRN Q6HRS PRN PO HEADACHE / TEMP; Start at 19:15 Ondansetron HCl (Zofran) 4 mg PRN Q6HRS PRN IV NAUSEA/VOMITING; Start at 19:15 Ondansetron HCl (Zofran Odt) 4 mg PRN Q6HRS PRN PO NAUSEA/VOMITING; Start at 19:15 Insulin Human Lispro (HumaLOG) 0-9 UNITS TIDWMEALS SQ ; Start 02/22/18 at 08:00 Dextrose (Dextrose 50%-Water Syringe) 12.5 gm PRN Q15MIN PRN IV SEE COMMENTS; Start 02/21/18 at 19:15 Active Scripts Active Vitamin D2 (Ergocalciferol (Vitamin D2)) 50,000 Unit Capsule 50,000 Unit PO WEEKLY 4 Days Tradjenta (Linagliptin) 5 Mg Tablet 5 Mg PO DAILY 30 Days Glucophage (Metformin Hcl) 500 Mg Tablet 500 Mg PO TIDWMEALS 30 Days Culturelle (Lactobacillus Rhamnosus Gg) 1 Each Cap.sprink 1 Cap PO BID 30 Days Reported Zofran Odt (Ondansetron) 4 Mg Tab.rapdis 1 Tab SL PRN Q8HRS PRN Hydrochlorothiazide Tablet (Hydrochlorothiazide) 12.5 Mg Tablet 1 Tab PO DAILY Benazepril Hcl 20 Mg Tablet 0.5 Tab PO DAILY Norvasc (Amlodipine Besylate) 10 Mg Tablet 5 Mg PO DAILY Potassium Chloride 10 Meq Capsule.er 10 Meq PO DAILY Ferrous Sulfate 325 Mg Tablet 325 Mg PO BID Fenofibrate (Fenofibrate Nanocrystallized) 48 Mg Tablet 48 Mg PO DAILY Sucralfate 1 Gm Tablet 1 Tab PO BID Omeprazole 40 Mg Capsule.dr 1 Cap PO DAILY Atorvastatin Calcium 10 Mg Tablet 10 Mg PO HS Vitals/I & O Vital Sign - Last 24 Hours 02/21/18 02/21/18 02/21/18 02/21/18 13:15 15:00 19:44 19:52 Temp 97.5 97.5 98.8 97.5 97.5 98.8 Pulse 66 66 77 Resp 17 16 B/P (MAP) 135/55 (81) 135/55 (81) 121/54 (76) Pulse Ox 98 98 99 O2 Delivery Room Air Room Air Room Air 02/21/18 02/21/18 02/22/18 02/22/18 20:15 23:34 02:48 07:00 Temp 99.6 99.9 100.8 99.6 99.9 100.8 Pulse 77 76 82 Resp 16 14 16 B/P (MAP) 138/53 (81) 131/48 (75) 105/55 (72) Pulse Ox 98 98 96 O2 Delivery Room Air Room Air Room Air Room Air 02/22/18 02/22/18 09:00 09:00 Pulse 82 82 B/P (MAP) 105/55 105/55 Intake and Output 02/21/18 02/21/18 02/22/18 15:00 23:00 07:00 Intake Total 2895 ml Balance 2895 ml DENNIS GAYLE III DO Feb 22, 2018 09:41
--- NOTE | 2018-02-22 10:05 | PDOC ---
Infectious Disease Note Subjective Subjective sitting up and eating by herself ROS ROS no n/v/d/sob Vital Sign Vital Signs Vital Signs Date Time Temp Pulse Resp B/P (MAP) Pulse Ox O2 Delivery O2 Flow Rate FiO2 02/22/18 09:00 82 105/55 02/22/18 07:00 100.8 16 96 Room Air 100.8 Physical Exam PHYSICAL EXAM GENERAL: Awake female, not in distress. VITAL SIGNS: Stable. HEENT: NAD. NECK: Supple. No JVP, no lymphadenopathy. LUNGS: Clear. HEART: S1, S2 regular. ABDOMEN: Benign. SKIN: Her worst wound is the right ischial wound, which is a black eschar, depth cannot be judged, superficial right hip and left hip wounds. EXTREMITIES: The patient is able to straighten up the legs, but is very stiff and prefers to be in a position. Labs Lab Laboratory Tests Test 02/21/18 15:21 02/21/18 17:09 02/21/18 17:30 02/21/18 18:39 Glucose (Fingerstick) 292 mg/dL (70-99) 380 mg/dL (70-99) 288 mg/dL (70-99) White Blood Count 9.7 x10^3/uL (4.0-11.0) Red Blood Count 3.86 x10^6/uL (3.50-5.40) Hemoglobin 11.2 g/dL (12.0-15.5) Hematocrit 33.4 % (36.0-47.0) Mean Corpuscular Volume 87 fL (79-100) Mean Corpuscular Hemoglobin 29 pg (25-35) Mean Corpuscular Hemoglobin Concent 34 g/dL (31-37) Red Cell Distribution Width 13.3 % (11.5-14.5) Platelet Count 245 x10^3/uL (140-400) Neutrophils (%) (Auto) 82 % (31-73) Lymphocytes (%) (Auto) 10 % (24-48) Monocytes (%) (Auto) 7 % (0-9) Eosinophils (%) (Auto) 0 % (0-3) Basophils (%) (Auto) 0 % (0-3) Neutrophils # (Auto) 7.9 x10^3uL (1.8-7.7) Lymphocytes # (Auto) 1.0 x10^3/uL (1.0-4.8) Monocytes # (Auto) 0.7 x10^3/uL (0.0-1.1) Eosinophils # (Auto) 0.0 x10^3/uL (0.0-0.7) Basophils # (Auto) 0.0 x10^3/uL (0.0-0.2) Sodium Level 142 mmol/L (136-145) Potassium Level 4.0 mmol/L (3.5-5.1) Chloride Level 105 mmol/L (98-107) Carbon Dioxide Level 25 mmol/L (21-32) Anion Gap 12 (6-14) Blood Urea Nitrogen 44 mg/dL (7-20) Creatinine 1.2 mg/dL (0.6-1.0) Estimated GFR (Cockcroft-Gault) 43.0 Glucose Level 368 mg/dL (70-99) Lactic Acid Level 3.3 mmol/L (0.4-2.0) Calcium Level 9.1 mg/dL (8.5-10.1) Test 02/21/18 20:29 02/21/18 22:15 02/22/18 05:10 02/22/18 07:33 Glucose (Fingerstick) 172 mg/dL (70-99) 136 mg/dL (70-99) Lactic Acid Level 3.4 mmol/L (0.4-2.0) Sodium Level 144 mmol/L (136-145) Potassium Level 3.4 mmol/L (3.5-5.1) Chloride Level 109 mmol/L (98-107) Carbon Dioxide Level 25 mmol/L (21-32) Anion Gap 10 (6-14) Blood Urea Nitrogen 30 mg/dL (7-20) Creatinine 0.8 mg/dL (0.6-1.0) Estimated GFR (Cockcroft-Gault) 68.7 Glucose Level 145 mg/dL (70-99) Calcium Level 8.5 mg/dL (8.5-10.1) Procalcitonin < 0.10 ng/mL (0.00-0.10) Objective Assessment Rt ischeal wound Rt and left hip wound Dementia Wheelchair bound Plan Plan of Care meropenem consult palliative care supportive care NUSRAT MAYER MD Feb 22, 2018 10:05
[2018-02-22 11:00] VITALS: BP 93/36
--- NOTE | 2018-02-22 11:57 | PDOC2 ---
CONSULT Date of Consult Date of Consult DATE: 02/22/18 TIME: 11:45 Reason for Consult Reason for Consult: wounds Referring Physician Referring Physician: Dr Espinoza Identification/Chief Complaint Chief Complaint wound Source Source: Caregiver, Chart review History of Present Illness Reason for Visit: She is a bed/wheelchair bound pt, residing at a care facility. She was seen in wound clinic for wound assessment. It was recommended she be admitted for wound evaluation and possible debridement Caregiver present, unsure how long wound has been there, multiple less extensive wounds to hips, ankles Past Medical History Cardiovascular: HTN, Hyperlipidemia Pulmonary: No pertinent hx CENTRAL NERVOUS SYSTEM: Other GI: No pertinent hx Heme/Onc: Iron deficiency Anemia Hepatobiliary: No pertinent hx Psych: Other Musculoskeletal: Other Rheumatologic: No pertinent hx Infectious disease: No pertinent hx Renal/: No pertinent hx Endocrine: Diabetes Past Surgical History Past Surgical History: No pertinent history Family History Family History: Hypertension Social History ALCOHOL: none Drugs: None Current Medications Current Medications Current Medications Vancomycin HCl (Vanco Per Pharmacy) 1 each PRN DAILY PRN MC SEE COMMENTS; Start 02/21/18 at 13:30; Stop 02/21/18 at 17:03; Status DC Sodium Chloride 1,000 ml @ 75 mls/hr [id number] IV Last administered on at 07:32; Start 02/21/18 at 14:00 Atorvastatin Calcium (Lipitor) 10 mg HS PO Last administered on 02/21/18at 21: 27; Start 02/21/18 at 21:00 Ergocalciferol (Vitamin D2) 50,000 unit WEEKLY PO ; Start 02/28/18 at 09:00 Ferrous Sulfate (Feosol) 325 mg BIDWMEALS PO Last administered on 02/22/18at 09 :13; Start 02/21/18 at 17:00 Lactobacillus Rhamnosus (Culturelle) 1 cap BID PO Last administered on at 09:14; Start 02/21/18 at 21:00 Ondansetron HCl (Zofran Odt) 4 mg PRN Q8HRS PRN PO NAUSEA; Start 02/21/18 at 14:45; Stop 02/21/18 at 19:15; Status DC Potassium Chloride (Klor-Con) 10 meq DAILY PO Last administered on 02/22/18at 09:14; Start 02/21/18 at 15:30 Lisinopril (Prinivil) 10 mg DAILY PO ; Start 02/21/18 at 15:30 Fenofibrate (Lofibra) 54 mg DAILY PO Last administered on 02/22/18at 09:00; Start 02/22/18 at 09:00 Hydrochlorothiazide (Microzide) 12.5 mg DAILY PO Last administered on at 09:15; Start 02/21/18 at 15:30 Linagliptin (Tradjenta) 5 mg DAILY PO Last administered on 02/22/18at 09:13; Start 02/21/18 at 15:30 Metformin HCl (Glucophage) 500 mg TIDWMEALS PO Last administered on 02/22/18at 09:14; Start 02/21/18 at 17:00 Pantoprazole Sodium (Protonix) 40 mg DAILYAC PO Last administered on at 07:32; Start 02/21/18 at 15:30 Sucralfate (Carafate) 1 gm BID PO Last administered on 02/22/18at 09:13; Start 02/21/18 at 21:00 Amlodipine Besylate (Norvasc) 5 mg DAILY PO ; Start 02/21/18 at 15:30 Ampicillin Sodium/ Sulbactam Sodium 1.5 gm/Sodium Chloride 50 ml @ 100 mls/hr Q6HRS IV ; Start 02/21/18 at 18:00; Stop 02/21/18 at 18:00; Status DC Meropenem 500 mg/ Sodium Chloride 50 ml @ 100 mls/hr Q8HRS IV Last administered on 02/22/18at 06:23; Start 02/21/18 at 17:00 Insulin Human Lispro (HumaLOG) 10 units 1X ONCE SQ Last administered on at 17:27; Start 02/21/18 at 17:00; Stop 02/21/18 at 17:01; Status DC Sodium Chloride 1,000 ml @ 166.667 mls/hr Q6H IV Last administered on at 18:24; Start 02/21/18 at 18:24; Stop 02/21/18 at 19:43; Status DC Dobutamine HCl/ Dextrose 250 ml @ 0 mls/hr CONT PRN IV SEE I/O RECORD; Start 02/21/18 at 18:30; Stop 02/21/18 at 18:35; Status DC Acetaminophen/ Hydrocodone Bitart (Lortab 5/325) 1 tab PRN Q4HRS PRN PO PAIN; Start 02/21/18 at 19:15 Acetaminophen (Tylenol) 500 mg PRN Q6HRS PRN PO HEADACHE / TEMP; Start at 19:15 Ondansetron HCl (Zofran) 4 mg PRN Q6HRS PRN IV NAUSEA/VOMITING; Start at 19:15 Ondansetron HCl (Zofran Odt) 4 mg PRN Q6HRS PRN PO NAUSEA/VOMITING; Start at 19:15 Insulin Human Lispro (HumaLOG) 0-9 UNITS TIDWMEALS SQ ; Start 02/22/18 at 08:00 Dextrose (Dextrose 50%-Water Syringe) 12.5 gm PRN Q15MIN PRN IV SEE COMMENTS; Start 02/21/18 at 19:15 Active Scripts Active Vitamin D2 (Ergocalciferol (Vitamin D2)) 50,000 Unit Capsule 50,000 Unit PO WEEKLY 4 Days Tradjenta (Linagliptin) 5 Mg Tablet 5 Mg PO DAILY 30 Days Glucophage (Metformin Hcl) 500 Mg Tablet 500 Mg PO TIDWMEALS 30 Days Culturelle (Lactobacillus Rhamnosus Gg) 1 Each Cap.sprink 1 Cap PO BID 30 Days Reported Zofran Odt (Ondansetron) 4 Mg Tab.rapdis 1 Tab SL PRN Q8HRS PRN Hydrochlorothiazide Tablet (Hydrochlorothiazide) 12.5 Mg Tablet 1 Tab PO DAILY Benazepril Hcl 20 Mg Tablet 0.5 Tab PO DAILY Norvasc (Amlodipine Besylate) 10 Mg Tablet 5 Mg PO DAILY Potassium Chloride 10 Meq Capsule.er 10 Meq PO DAILY Ferrous Sulfate 325 Mg Tablet 325 Mg PO BID Fenofibrate (Fenofibrate Nanocrystallized) 48 Mg Tablet 48 Mg PO DAILY Sucralfate 1 Gm Tablet 1 Tab PO BID Omeprazole 40 Mg Capsule.dr 1 Cap PO DAILY Atorvastatin Calcium 10 Mg Tablet 10 Mg PO HS Allergies Allergies: Coded Allergies: Cephalosporins (Verified Allergy, Severe, Anaphylaxis, 03/13/15) throat closes off Penicillins (Verified Allergy, Severe, Anaphylaxis, 03/13/15) throat closes off Sulfa (Sulfonamide Antibiotics) (Verified Allergy, Intermediate, 10/27/16) amoxicillin (Verified Allergy, Intermediate, 02/21/18) aspirin (Verified Allergy, Intermediate, 03/13/15) clavulanic acid (Verified Allergy, Intermediate, 02/21/18) sulfamethoxazole (Verified Allergy, Intermediate, 08/11/17) trimethoprim (Verified Allergy, Intermediate, 08/11/17) ROS Review of System unable to obtain, not cognitively alert to accurately answer Physical Exam General: Cooperative, No acute distress HEENT: Atraumatic, Mucous membr. moist/pink Lungs: Clear to auscultation, Normal air movement Heart: Regular rate, Normal S1, Normal S2 Abdomen: Soft, No tenderness Extremities: Other (atrophied muscles ) Skin: Other (left ischial ulcer with necrosis, noted right ankle ulcer, bilat hip ulcers) Psych/Mental Status: Other (some confusion) Vitals VITALS Vital Signs Date Time Temp Pulse Resp B/P (MAP) Pulse Ox O2 Delivery O2 Flow Rate FiO2 02/22/18 09:00 82 105/55 02/22/18 07:00 100.8 16 96 Room Air 100.8 Labs Labs Laboratory Tests Test 02/21/18 15:21 02/21/18 17:09 02/21/18 17:30 02/21/18 18:39 Glucose (Fingerstick) 292 mg/dL (70-99) 380 mg/dL (70-99) 288 mg/dL (70-99) White Blood Count 9.7 x10^3/uL (4.0-11.0) Red Blood Count 3.86 x10^6/uL (3.50-5.40) Hemoglobin 11.2 g/dL (12.0-15.5) Hematocrit 33.4 % (36.0-47.0) Mean Corpuscular Volume 87 fL (79-100) Mean Corpuscular Hemoglobin 29 pg (25-35) Mean Corpuscular Hemoglobin Concent 34 g/dL (31-37) Red Cell Distribution Width 13.3 % (11.5-14.5) Platelet Count 245 x10^3/uL (140-400) Neutrophils (%) (Auto) 82 % (31-73) Lymphocytes (%) (Auto) 10 % (24-48) Monocytes (%) (Auto) 7 % (0-9) Eosinophils (%) (Auto) 0 % (0-3) Basophils (%) (Auto) 0 % (0-3) Neutrophils # (Auto) 7.9 x10^3uL (1.8-7.7) Lymphocytes # (Auto) 1.0 x10^3/uL (1.0-4.8) Monocytes # (Auto) 0.7 x10^3/uL (0.0-1.1) Eosinophils # (Auto) 0.0 x10^3/uL (0.0-0.7) Basophils # (Auto) 0.0 x10^3/uL (0.0-0.2) Sodium Level 142 mmol/L (136-145) Potassium Level 4.0 mmol/L (3.5-5.1) Chloride Level 105 mmol/L (98-107) Carbon Dioxide Level 25 mmol/L (21-32) Anion Gap 12 (6-14) Blood Urea Nitrogen 44 mg/dL (7-20) Creatinine 1.2 mg/dL (0.6-1.0) Estimated GFR (Cockcroft-Gault) 43.0 Glucose Level 368 mg/dL (70-99) Lactic Acid Level 3.3 mmol/L (0.4-2.0) Calcium Level 9.1 mg/dL (8.5-10.1) Test 02/21/18 20:29 02/21/18 22:15 02/22/18 05:10 02/22/18 07:33 Glucose (Fingerstick) 172 mg/dL (70-99) 136 mg/dL (70-99) Lactic Acid Level 3.4 mmol/L (0.4-2.0) Sodium Level 144 mmol/L (136-145) Potassium Level 3.4 mmol/L (3.5-5.1) Chloride Level 109 mmol/L (98-107) Carbon Dioxide Level 25 mmol/L (21-32) Anion Gap 10 (6-14) Blood Urea Nitrogen 30 mg/dL (7-20) Creatinine 0.8 mg/dL (0.6-1.0) Estimated GFR (Cockcroft-Gault) 68.7 Glucose Level 145 mg/dL (70-99) Calcium Level 8.5 mg/dL (8.5-10.1) Procalcitonin < 0.10 ng/mL (0.00-0.10) Test 02/22/18 11:16 Glucose (Fingerstick) 225 mg/dL (70-99) Laboratory Tests Test 02/21/18 15:21 02/21/18 17:09 02/21/18 17:30 02/21/18 18:39 Glucose (Fingerstick) 292 mg/dL (70-99) 380 mg/dL (70-99) 288 mg/dL (70-99) White Blood Count 9.7 x10^3/uL (4.0-11.0) Red Blood Count 3.86 x10^6/uL (3.50-5.40) Hemoglobin 11.2 g/dL (12.0-15.5) Hematocrit 33.4 % (36.0-47.0) Mean Corpuscular Volume 87 fL (79-100) Mean Corpuscular Hemoglobin 29 pg (25-35) Mean Corpuscular Hemoglobin Concent 34 g/dL (31-37) Red Cell Distribution Width 13.3 % (11.5-14.5) Platelet Count 245 x10^3/uL (140-400) Neutrophils (%) (Auto) 82 % (31-73) Lymphocytes (%) (Auto) 10 % (24-48) Monocytes (%) (Auto) 7 % (0-9) Eosinophils (%) (Auto) 0 % (0-3) Basophils (%) (Auto) 0 % (0-3) Neutrophils # (Auto) 7.9 x10^3uL (1.8-7.7) Lymphocytes # (Auto) 1.0 x10^3/uL (1.0-4.8) Monocytes # (Auto) 0.7 x10^3/uL (0.0-1.1) Eosinophils # (Auto) 0.0 x10^3/uL (0.0-0.7) Basophils # (Auto) 0.0 x10^3/uL (0.0-0.2) Sodium Level 142 mmol/L (136-145) Potassium Level 4.0 mmol/L (3.5-5.1) Chloride Level 105 mmol/L (98-107) Carbon Dioxide Level 25 mmol/L (21-32) Anion Gap 12 (6-14) Blood Urea Nitrogen 44 mg/dL (7-20) Creatinine 1.2 mg/dL (0.6-1.0) Estimated GFR (Cockcroft-Gault) 43.0 Glucose Level 368 mg/dL (70-99) Lactic Acid Level 3.3 mmol/L (0.4-2.0) Calcium Level 9.1 mg/dL (8.5-10.1) Test 02/21/18 20:29 02/21/18 22:15 02/22/18 05:10 02/22/18 07:33 Glucose (Fingerstick) 172 mg/dL (70-99) 136 mg/dL (70-99) Lactic Acid Level 3.4 mmol/L (0.4-2.0) Sodium Level 144 mmol/L (136-145) Potassium Level 3.4 mmol/L (3.5-5.1) Chloride Level 109 mmol/L (98-107) Carbon Dioxide Level 25 mmol/L (21-32) Anion Gap 10 (6-14) Blood Urea Nitrogen 30 mg/dL (7-20) Creatinine 0.8 mg/dL (0.6-1.0) Estimated GFR (Cockcroft-Gault) 68.7 Glucose Level 145 mg/dL (70-99) Calcium Level 8.5 mg/dL (8.5-10.1) Procalcitonin < 0.10 ng/mL (0.00-0.10) Test 02/22/18 11:16 Glucose (Fingerstick) 225 mg/dL (70-99) Assessment/Plan Assessment/Plan ischium wound may need debridement--pt is wheelchair bound, dm, HTN--poor healing likely palliative involved for goal setting will review with KEN Barnes APRN Feb 22, 2018 11:57
[2018-02-22 15:00] VITALS: BP 128/71
[2018-02-22 19:15] VITALS: BP 92/43
[2018-02-22] MEDS: ATORVASTATIN CALCIUM 10 MG TABLET. PO SCH (21:10)
[2018-02-22 22:59] VITALS: BP 113/58
[2018-02-23] VITALS (14 sets, daily range): BP systolic 85–112; BP diastolic 42–62
[2018-02-23 04:38] LABS: BASO % 1 % (0-3); EOS % 1 % (0-3); HEMATOCRIT 24.9 % (36.0-47.0); HEMOGLOBIN 8.5 g/dL (12.0-15.5); LYMPH # 0.9 x10^3/uL (1.0-4.8); LYMPH % 17 % (24-48); MEAN CORPUSCULAR HEMOGLOBIN 29 pg (25-35); MEAN CORPUSCULAR HGB CONC 34 g/dL (31-37); MEAN CORPUSCULAR VOLUME 85 fL (79-100); MONO # 0.4 x10^3/uL (0.0-1.1); MONO % 7 % (0-9); NEUT # 3.9 x10^3uL (1.8-7.7); NEUT % 75 % (31-73); PLATELET COUNT 213 x10^3/uL (140-400); RED BLOOD COUNT 2.94 x10^6/uL (3.50-5.40); RED CELL DISTRIBUTION WIDTH 13.4 % (11.5-14.5); WHITE BLOOD COUNT 5.2 x10^3/uL (4.0-11.0)
[2018-02-23 05:04] LABS: ALBUMIN 1.9 g/dL (3.4-5.0); ALBUMIN/GLOBULIN RATIO 0.7 (1.0-1.7); CALCIUM 7.9 mg/dL (8.5-10.1); CREATININE 0.9 mg/dL (0.6-1.0); GFR 59.9; POTASSIUM 3.6 mmol/L (3.5-5.1); TOTAL BILIRUBIN 0.1 mg/dL (0.2-1.0); TOTAL PROTEIN 4.8 g/dL (6.4-8.2)
[2018-02-23] MEDS: IV NORMAL SALINE 1000ML BAG 1,000 ML IV SCH ×3 (06:00→18:50)
[2018-02-23] MEDS: MEROPENEM 500 MG in IV NORMAL SALINE 50ML 50 ML IV SCH ×3 (06:10→21:44)
[2018-02-23] MEDS ORDERED: LIDOCAINE 1% PF 2 ML VIAL. ID PRN (07:00)
[2018-02-23] MEDS ORDERED: fentaNYL PF VIAL 100 MCG/2 ML VIAL IV PRN ×2 (07:00)
[2018-02-23] MEDS ORDERED: IV RINGERS,LACTATED 1000ML 1,000 ML IV SCH (07:00)
[2018-02-23] MEDS ORDERED: PROCHLORPERAZINE 10 MG/2 ML VIAL. IV PRN (07:00)
[2018-02-23] MEDS ORDERED: MORPHINE SULFATE 2 MG/ML VIAL. IV PRN (07:00)
[2018-02-23] MEDS ORDERED: ONDANSETRON PF 4 MG/2 ML VIAL. IV PRN (07:00)
[2018-02-23] MEDS ORDERED: HYDROmorphone 2 MG/ML VIAL IV PRN (07:00)
[2018-02-23] MEDS: PANTOPRAZOLE 40 MG TABLET.DR. PO SCH (07:30)
[2018-02-23] MEDS: FERROUS SULFATE 325 MG TABLET. PO SCH ×2 (08:00→17:00)
[2018-02-23] MEDS: INSULIN LISPRO 300 UNITS/3 ML INSULN.PEN. SQ SCH ×3 (08:00→17:00)
[2018-02-23] MEDS: metFORMIN 500 MG TABLET PO SCH ×3 (08:00→17:00)
[2018-02-23] MEDS: LACTOBACILLUS RHAMNOSUS GG 1 CAPSULE. PO SCH ×2 (08:51→20:20)
[2018-02-23] MEDS: POTASSIUM CHLORIDE 10 MEQ TABLET.ER. PO SCH (08:51)
[2018-02-23] MEDS: FENOFIBRATE 54 MG TABLET. PO SCH (08:51)
[2018-02-23] MEDS: SUCRALFATE 1 GM TABLET. PO SCH ×2 (08:51→20:20)
[2018-02-23] MEDS: hydroCHLOROthiazide 12.5 MG CAPSULE PO SCH (08:52)
[2018-02-23] MEDS: amLODIPine BESYLATE 5 MG TABLET PO SCH (08:53)
[2018-02-23] MEDS: LINAGLIPTIN 5 MG TABLET PO SCH (08:53)
[2018-02-23] MEDS: LISINOPRIL 10 MG TABLET PO SCH (08:53)
[2018-02-23] MEDS ORDERED: BUPIVAC MPF-EPI 0.5%-1:200000 30 ML VIAL. ONE (09:46)
[2018-02-23] MEDS ORDERED: BUPIVACAINE-EPI 0.5%-1:200000 50 ML VIAL. ONE (09:48)
[2018-02-23] MEDS ORDERED: SEVOFLURANE 31 TO 60 MINUTES. IH ONE (10:01)
[2018-02-23] MEDS ORDERED: ROCURONIUM 50 MG/5 ML VIAL. ONE (10:01)
[2018-02-23] MEDS ORDERED: fentaNYL PF VIAL 100 MCG/2 ML VIAL ONE (10:01)
[2018-02-23] MEDS ORDERED: DEXAMETHASONE SOD PHOS 20 MG/5 ML VIAL. ONE (10:02)
[2018-02-23] MEDS ORDERED: ONDANSETRON PF 4 MG/2 ML VIAL. ONE (10:02)
[2018-02-23] MEDS ORDERED: PROPOFOL 20 ML IV ONE (10:02)
[2018-02-23] MEDS ORDERED: PHENYLEPHRINE in 0.9% NACL PF 1 MG/10 ML SYRINGE. IV ONE (10:02)
--- NOTE | 2018-02-23 10:23 | PDOC2 ---
PALLIATIVE CARE Palliative Care Note Palliative Care Patient in surgery for debridement of wounds. Spoke with Kaya Wells caregiver at [facility] Patient has been a resident of [facility] [place] for 22+ years. Was receiving wound care. Per Kaya patient has had progressive dementia and has stopped eating in the last 2 weeks and sleeping most of the time. Has not been weight bearing for 2 years. Richardson ?last name a family member ?cousin has been making her medical decisions. She currently is not available so her has been assisting with some decisions. Requested by Kaya to call Elvia Grant [facility] Resources at [facility] to inquire specifics about decision maker and how this has been addressed at [facility] for patient. Per Kaya patient's at [facility] are all Full Code and Full Aggressive Care Attempted to call Elvia at [phone]. Message left to return call. CHONG DUMONT Feb 23, 2018 10:23
[2018-02-23] MEDS ORDERED: GLYCOPYRROLATE 1 MG/5 ML VIAL. ONE (11:39)
[2018-02-23] MEDS ORDERED: NEOSTIGMINE METHYLSULFATE 5 MG/5 ML SYRINGE. ONE (11:39)
--- NOTE | 2018-02-23 11:52 | PDOC4 ---
Operative Note Operative Note Date: 02/23/2018 Preoperative diagnosis: Sacral decubitus ulcer Postoperative diagnosis: Same Surgeon: Frank Procedure: Debridement Dictation: Patient is a 82-year-old female demented skilled nursing patient with necrotic decubitus ulcer on the right side proximally 8 x 8 cm. Procedure of debridement could not be explained to the patient secondary to dementia and consent was obtained from her ux developer designer Dr. Barros and myself is necessary. Patient was taken to operating room where general anesthesia was initiated once patient was asleep she was repositioned in prone positioning her buttocks was prepped and draped usual sterile fashion using Betadine scrub and solution. Area was incised sharply with a 11 blade scalpel approximately 8 x 8 cm and approximately 1-1/2 cm deep this was debrided down to pink viable vascular tissue. She debridement was skin and subcutaneous fat. Wound was then dressed with iodoform packing and 4 x 4's and Medipore tape. Patient was waken expanded in the operating room taken recovery in stable condition all sponge instrument and needle counts listed as correct estimate blood loss 10 mL CORINNE LEDESMA MD Feb 23, 2018 11:52
--- NOTE | 2018-02-23 11:59 | PDOC ---
PROGRESS NOTES Chief Complaint Chief Complaint Rt ischial wound Rt and left hip wound Dementia Wheelchair bound Lactic acidosis H/o GERD H/o DM H/o osteoporosis H/o hyperlipidemia H/o HTN History of Present Illness History of Present Illness Pt seen and examined while laying in bed Pt appeared comfortable w/NAD noted Discussed w/RN Vitals Vitals Vital Signs Date Time Temp Pulse Resp B/P (MAP) Pulse Ox O2 Delivery O2 Flow Rate FiO2 02/23/18 10:22 Room Air 02/23/18 10:21 97.6 74 16 97/51 96 97.6 Physical Exam Physical Exam Neck: No JVP, no lymphadenopathy General: Cooperative, No acute distress Heart: Regular rate, Normal S1, Normal S2 Lungs: Clear Abdomen: Soft, No tenderness Extremities: Other (atrophied muscles) Skin: Other (left ischial ulcer with necrosis, noted right ankle ulcer, b/l hip ulcers) Labs LABS Laboratory Tests Test 02/22/18 16:35 02/22/18 20:23 02/22/18 21:12 02/23/18 03:05 Glucose (Fingerstick) 105 mg/dL (70-99) 140 mg/dL (70-99) Lactic Acid Level 2.2 mmol/L (0.4-2.0) White Blood Count 5.2 x10^3/uL (4.0-11.0) Red Blood Count 2.94 x10^6/uL (3.50-5.40) Hemoglobin 8.5 g/dL (12.0-15.5) Hematocrit 24.9 % (36.0-47.0) Mean Corpuscular Volume 85 fL (79-100) Mean Corpuscular Hemoglobin 29 pg (25-35) Mean Corpuscular Hemoglobin Concent 34 g/dL (31-37) Red Cell Distribution Width 13.4 % (11.5-14.5) Platelet Count 213 x10^3/uL (140-400) Neutrophils (%) (Auto) 75 % (31-73) Lymphocytes (%) (Auto) 17 % (24-48) Monocytes (%) (Auto) 7 % (0-9) Eosinophils (%) (Auto) 1 % (0-3) Basophils (%) (Auto) 1 % (0-3) Neutrophils # (Auto) 3.9 x10^3uL (1.8-7.7) Lymphocytes # (Auto) 0.9 x10^3/uL (1.0-4.8) Monocytes # (Auto) 0.4 x10^3/uL (0.0-1.1) Eosinophils # (Auto) 0.0 x10^3/uL (0.0-0.7) Basophils # (Auto) 0.0 x10^3/uL (0.0-0.2) Sodium Level 147 mmol/L (136-145) Potassium Level 3.6 mmol/L (3.5-5.1) Chloride Level 112 mmol/L (98-107) Carbon Dioxide Level 25 mmol/L (21-32) Anion Gap 10 (6-14) Blood Urea Nitrogen 19 mg/dL (7-20) Creatinine 0.9 mg/dL (0.6-1.0) Estimated GFR (Cockcroft-Gault) 59.9 BUN/Creatinine Ratio 21 (6-20) Glucose Level 138 mg/dL (70-99) Calcium Level 7.9 mg/dL (8.5-10.1) Total Bilirubin 0.1 mg/dL (0.2-1.0) Aspartate Amino Transf (AST/SGOT) 11 U/L (15-37) Alanine Aminotransferase (ALT/SGPT) 13 U/L (14-59) Alkaline Phosphatase 64 U/L (46-116) Total Protein 4.8 g/dL (6.4-8.2) Albumin 1.9 g/dL (3.4-5.0) Albumin/Globulin Ratio 0.7 (1.0-1.7) Test 02/23/18 07:28 02/23/18 10:16 Glucose (Fingerstick) 103 mg/dL (70-99) 98 mg/dL (70-99) Review of Systems Review of Systems Assessment: Rt ischial wound Rt and left hip wound Dementia Wheelchair bound Lactic acidosis H/o GERD H/o DM H/o osteoporosis H/o hyperlipidemia H/o HTN Plan: Debridement today Cont IV abx Wound care IVF PRN narcotics Labs DVT ppx PT/OT/ST Home meds ? LTAC Comment Review of Relevant I have reviewed the following items scott (where applicable) has been applied. Labs Laboratory Tests Test 02/21/18 15:21 02/21/18 17:09 02/21/18 17:30 02/21/18 18:00 Glucose (Fingerstick) 292 mg/dL (70-99) 380 mg/dL (70-99) White Blood Count 9.7 x10^3/uL (4.0-11.0) Red Blood Count 3.86 x10^6/uL (3.50-5.40) Hemoglobin 11.2 g/dL (12.0-15.5) Hematocrit 33.4 % (36.0-47.0) Mean Corpuscular Volume 87 fL (79-100) Mean Corpuscular Hemoglobin 29 pg (25-35) Mean Corpuscular Hemoglobin Concent 34 g/dL (31-37) Red Cell Distribution Width 13.3 % (11.5-14.5) Platelet Count 245 x10^3/uL (140-400) Neutrophils (%) (Auto) 82 % (31-73) Lymphocytes (%) (Auto) 10 % (24-48) Monocytes (%) (Auto) 7 % (0-9) Eosinophils (%) (Auto) 0 % (0-3) Basophils (%) (Auto) 0 % (0-3) Neutrophils # (Auto) 7.9 x10^3uL (1.8-7.7) Lymphocytes # (Auto) 1.0 x10^3/uL (1.0-4.8) Monocytes # (Auto) 0.7 x10^3/uL (0.0-1.1) Eosinophils # (Auto) 0.0 x10^3/uL (0.0-0.7) Basophils # (Auto) 0.0 x10^3/uL (0.0-0.2) Sodium Level 142 mmol/L (136-145) Potassium Level 4.0 mmol/L (3.5-5.1) Chloride Level 105 mmol/L (98-107) Carbon Dioxide Level 25 mmol/L (21-32) Anion Gap 12 (6-14) Blood Urea Nitrogen 44 mg/dL (7-20) Creatinine 1.2 mg/dL (0.6-1.0) Estimated GFR (Cockcroft-Gault) 43.0 Glucose Level 368 mg/dL (70-99) Lactic Acid Level 3.3 mmol/L (0.4-2.0) Calcium Level 9.1 mg/dL (8.5-10.1) Nasal Screen MRSA (PCR) Negative (Negative) Test 02/21/18 18:39 02/21/18 20:29 02/21/18 22:15 02/22/18 05:10 Glucose (Fingerstick) 288 mg/dL (70-99) 172 mg/dL (70-99) Lactic Acid Level 3.4 mmol/L (0.4-2.0) Sodium Level 144 mmol/L (136-145) Potassium Level 3.4 mmol/L (3.5-5.1) Chloride Level 109 mmol/L (98-107) Carbon Dioxide Level 25 mmol/L (21-32) Anion Gap 10 (6-14) Blood Urea Nitrogen 30 mg/dL (7-20) Creatinine 0.8 mg/dL (0.6-1.0) Estimated GFR (Cockcroft-Gault) 68.7 Glucose Level 145 mg/dL (70-99) Calcium Level 8.5 mg/dL (8.5-10.1) Procalcitonin < 0.10 ng/mL (0.00-0.10) Test 02/22/18 07:33 02/22/18 11:16 02/22/18 16:35 02/22/18 20:23 Glucose (Fingerstick) 136 mg/dL (70-99) 225 mg/dL (70-99) 105 mg/dL (70-99) Lactic Acid Level 2.2 mmol/L (0.4-2.0) Test 02/22/18 21:12 02/23/18 03:05 02/23/18 07:28 02/23/18 10:16 Glucose (Fingerstick) 140 mg/dL (70-99) 103 mg/dL (70-99) 98 mg/dL (70-99) White Blood Count 5.2 x10^3/uL (4.0-11.0) Red Blood Count 2.94 x10^6/uL (3.50-5.40) Hemoglobin 8.5 g/dL (12.0-15.5) Hematocrit 24.9 % (36.0-47.0) Mean Corpuscular Volume 85 fL (79-100) Mean Corpuscular Hemoglobin 29 pg (25-35) Mean Corpuscular Hemoglobin Concent 34 g/dL (31-37) Red Cell Distribution Width 13.4 % (11.5-14.5) Platelet Count 213 x10^3/uL (140-400) Neutrophils (%) (Auto) 75 % (31-73) Lymphocytes (%) (Auto) 17 % (24-48) Monocytes (%) (Auto) 7 % (0-9) Eosinophils (%) (Auto) 1 % (0-3) Basophils (%) (Auto) 1 % (0-3) Neutrophils # (Auto) 3.9 x10^3uL (1.8-7.7) Lymphocytes # (Auto) 0.9 x10^3/uL (1.0-4.8) Monocytes # (Auto) 0.4 x10^3/uL (0.0-1.1) Eosinophils # (Auto) 0.0 x10^3/uL (0.0-0.7) Basophils # (Auto) 0.0 x10^3/uL (0.0-0.2) Sodium Level 147 mmol/L (136-145) Potassium Level 3.6 mmol/L (3.5-5.1) Chloride Level 112 mmol/L (98-107) Carbon Dioxide Level 25 mmol/L (21-32) Anion Gap 10 (6-14) Blood Urea Nitrogen 19 mg/dL (7-20) Creatinine 0.9 mg/dL (0.6-1.0) Estimated GFR (Cockcroft-Gault) 59.9 BUN/Creatinine Ratio 21 (6-20) Glucose Level 138 mg/dL (70-99) Calcium Level 7.9 mg/dL (8.5-10.1) Total Bilirubin 0.1 mg/dL (0.2-1.0) Aspartate Amino Transf (AST/SGOT) 11 U/L (15-37) Alanine Aminotransferase (ALT/SGPT) 13 U/L (14-59) Alkaline Phosphatase 64 U/L (46-116) Total Protein 4.8 g/dL (6.4-8.2) Albumin 1.9 g/dL (3.4-5.0) Albumin/Globulin Ratio 0.7 (1.0-1.7) Laboratory Tests Test 02/22/18 16:35 02/22/18 20:23 02/22/18 21:12 02/23/18 03:05 Glucose (Fingerstick) 105 mg/dL (70-99) 140 mg/dL (70-99) Lactic Acid Level 2.2 mmol/L (0.4-2.0) White Blood Count 5.2 x10^3/uL (4.0-11.0) Red Blood Count 2.94 x10^6/uL (3.50-5.40) Hemoglobin 8.5 g/dL (12.0-15.5) Hematocrit 24.9 % (36.0-47.0) Mean Corpuscular Volume 85 fL (79-100) Mean Corpuscular Hemoglobin 29 pg (25-35) Mean Corpuscular Hemoglobin Concent 34 g/dL (31-37) Red Cell Distribution Width 13.4 % (11.5-14.5) Platelet Count 213 x10^3/uL (140-400) Neutrophils (%) (Auto) 75 % (31-73) Lymphocytes (%) (Auto) 17 % (24-48) Monocytes (%) (Auto) 7 % (0-9) Eosinophils (%) (Auto) 1 % (0-3) Basophils (%) (Auto) 1 % (0-3) Neutrophils # (Auto) 3.9 x10^3uL (1.8-7.7) Lymphocytes # (Auto) 0.9 x10^3/uL (1.0-4.8) Monocytes # (Auto) 0.4 x10^3/uL (0.0-1.1) Eosinophils # (Auto) 0.0 x10^3/uL (0.0-0.7) Basophils # (Auto) 0.0 x10^3/uL (0.0-0.2) Sodium Level 147 mmol/L (136-145) Potassium Level 3.6 mmol/L (3.5-5.1) Chloride Level 112 mmol/L (98-107) Carbon Dioxide Level 25 mmol/L (21-32) Anion Gap 10 (6-14) Blood Urea Nitrogen 19 mg/dL (7-20) Creatinine 0.9 mg/dL (0.6-1.0) Estimated GFR (Cockcroft-Gault) 59.9 BUN/Creatinine Ratio 21 (6-20) Glucose Level 138 mg/dL (70-99) Calcium Level 7.9 mg/dL (8.5-10.1) Total Bilirubin 0.1 mg/dL (0.2-1.0) Aspartate Amino Transf (AST/SGOT) 11 U/L (15-37) Alanine Aminotransferase (ALT/SGPT) 13 U/L (14-59) Alkaline Phosphatase 64 U/L (46-116) Total Protein 4.8 g/dL (6.4-8.2) Albumin 1.9 g/dL (3.4-5.0) Albumin/Globulin Ratio 0.7 (1.0-1.7) Test 02/23/18 07:28 02/23/18 10:16 Glucose (Fingerstick) 103 mg/dL (70-99) 98 mg/dL (70-99) Microbiology 02/21/18 Blood Culture - Preliminary, Resulted NO GROWTH AFTER 1 DAY Medications Current Medications Vancomycin HCl (Vanco Per Pharmacy) 1 each PRN DAILY PRN MC SEE COMMENTS; Start 02/21/18 at 13:30; Stop 02/21/18 at 17:03; Status DC Sodium Chloride 1,000 ml @ 75 mls/hr [id number] IV Last administered on at 21:08; Start 02/21/18 at 14:00 Atorvastatin Calcium (Lipitor) 10 mg HS PO Last administered on 02/22/18at 21: 10; Start 02/21/18 at 21:00 Ergocalciferol (Vitamin D2) 50,000 unit WEEKLY PO ; Start 02/28/18 at 09:00 Ferrous Sulfate (Feosol) 325 mg BIDWMEALS PO Last administered on 02/22/18at 17 :44; Start 02/21/18 at 17:00 Lactobacillus Rhamnosus (Culturelle) 1 cap BID PO Last administered on at 21:10; Start 02/21/18 at 21:00 Ondansetron HCl (Zofran Odt) 4 mg PRN Q8HRS PRN PO NAUSEA; Start 02/21/18 at 14:45; Stop 02/21/18 at 19:15; Status DC Potassium Chloride (Klor-Con) 10 meq DAILY PO Last administered on 02/22/18at 09:14; Start 02/21/18 at 15:30 Lisinopril (Prinivil) 10 mg DAILY PO ; Start 02/21/18 at 15:30 Fenofibrate (Lofibra) 54 mg DAILY PO Last administered on 02/22/18at 09:00; Start 02/22/18 at 09:00 Hydrochlorothiazide (Microzide) 12.5 mg DAILY PO Last administered on at 09:15; Start 02/21/18 at 15:30 Linagliptin (Tradjenta) 5 mg DAILY PO Last administered on 02/22/18at 09:13; Start 02/21/18 at 15:30 Metformin HCl (Glucophage) 500 mg TIDWMEALS PO Last administered on 02/22/18at 17:45; Start 02/21/18 at 17:00 Pantoprazole Sodium (Protonix) 40 mg DAILYAC PO Last administered on at 07:32; Start 02/21/18 at 15:30 Sucralfate (Carafate) 1 gm BID PO Last administered on 02/22/18at 21:10; Start 02/21/18 at 21:00 Amlodipine Besylate (Norvasc) 5 mg DAILY PO ; Start 02/21/18 at 15:30 Ampicillin Sodium/ Sulbactam Sodium 1.5 gm/Sodium Chloride 50 ml @ 100 mls/hr Q6HRS IV ; Start 02/21/18 at 18:00; Stop 02/21/18 at 18:00; Status DC Meropenem 500 mg/ Sodium Chloride 50 ml @ 100 mls/hr Q8HRS IV Last administered on 02/23/18at 06:10; Start 02/21/18 at 17:00 Insulin Human Lispro (HumaLOG) 10 units 1X ONCE SQ Last administered on at 17:27; Start 02/21/18 at 17:00; Stop 02/21/18 at 17:01; Status DC Sodium Chloride 1,000 ml @ 166.667 mls/hr Q6H IV Last administered on at 18:24; Start 02/21/18 at 18:24; Stop 02/21/18 at 19:43; Status DC Dobutamine HCl/ Dextrose 250 ml @ 0 mls/hr CONT PRN IV SEE I/O RECORD; Start 02/21/18 at 18:30; Stop 02/21/18 at 18:35; Status DC Acetaminophen/ Hydrocodone Bitart (Lortab 5/325) 1 tab PRN Q4HRS PRN PO PAIN; Start 02/21/18 at 19:15 Acetaminophen (Tylenol) 500 mg PRN Q6HRS PRN PO HEADACHE / TEMP; Start at 19:15 Ondansetron HCl (Zofran) 4 mg PRN Q6HRS PRN IV NAUSEA/VOMITING; Start at 19:15 Ondansetron HCl (Zofran Odt) 4 mg PRN Q6HRS PRN PO NAUSEA/VOMITING; Start at 19:15 Insulin Human Lispro (HumaLOG) 0-9 UNITS TIDWMEALS SQ Last administered on at 12:19; Start 02/22/18 at 08:00 Dextrose (Dextrose 50%-Water Syringe) 12.5 gm PRN Q15MIN PRN IV SEE COMMENTS; Start 02/21/18 at 19:15 Prochlorperazine Edisylate (Compazine) 5 mg PACU PRN PRN IV NAUSEA, MRX1; Start 02/23/18 at 07:00; Stop 02/24/18 at 06:59 Hydromorphone HCl (Dilaudid) 0.5 mg PRN Q10MIN PRN IV SEV PAIN, Second choice; Start 02/23/18 at 07:00; Stop 02/24/18 at 06:59 Lidocaine HCl (Xylocaine-Mpf 1% 2ml Vial) 2 ml PRN 1X PRN ID IV START; Start 02/23/18 at 07:00; Stop 02/24/18 at 06:59 Ringer's Solution 1,000 ml @ 30 mls/hr Q24H IV ; Start 02/23/18 at 07:00; Stop 02/23/18 at 18:59 Morphine Sulfate (Morphine Sulfate) 1 mg PRN Q10MIN PRN IV SEVERE PAIN; Start 02/23/18 at 07:00; Stop 02/24/18 at 06:59 Fentanyl Citrate (Fentanyl 2ml Vial) 50 mcg PRN Q5MIN PRN IV MODERATE TO SEVERE PAIN; Start 02/23/18 at 07:00; Stop 02/24/18 at 06:59 Fentanyl Citrate (Fentanyl 2ml Vial) 25 mcg PRN Q5MIN PRN IV MILD PAIN; Start 02/23/18 at 07:00; Stop 02/24/18 at 06:59 Ondansetron HCl (Zofran) 4 mg PRN Q6HRS PRN IV NAUSEA/VOMITING; Start at 07:00; Stop 02/24/18 at 06:59 Rocuronium [place] (Zemuron) 50 mg STK-MED ONCE .ROUTE ; Start 02/23/18 at 10: 01; Stop 02/23/18 at 10:02; Status DC Fentanyl Citrate (Fentanyl 2ml Vial) 100 mcg STK-MED ONCE .ROUTE ; Start at 10:01; Stop 02/23/18 at 10:02; Status DC Sevoflurane (Ultane) 30 ml STK-MED ONCE IH ; Start 02/23/18 at 10:01; Stop at 10:02; Status DC Propofol 20 ml @ As Directed STK-MED ONCE IV ; Start 02/23/18 at 10:02; Stop 02/23/18 at 10:03; Status DC Phenylephrine HCl (PHENYLEPHRINE in 0.9% NACL PF) 1 mg STK-MED ONCE IV ; Start 02/23/18 at 10:02; Stop 02/23/18 at 10:03; Status DC Dexamethasone Sodium Phosphate (Decadron) 20 mg STK-MED ONCE .ROUTE ; Start at 10:02; Stop 02/23/18 at 10:03; Status DC Ondansetron HCl (Zofran) 4 mg STK-MED ONCE .ROUTE ; Start 02/23/18 at 10:02; Stop 02/23/18 at 10:03; Status DC Sodium Chloride 1,000 ml @ 75 mls/hr [id number] IV Last administered on at 10:20; Start 02/23/18 at 10:30 Bupivacaine HCl/ Epinephrine Bitart (Sensorcain-Mpf Epi 0.5%-1:[id number]) 30 ml STK -MED ONCE .ROUTE ; Start 02/23/18 at 09:46; Stop 02/23/18 at 10:47; Status DC Bupivacaine HCl/ Epinephrine Bitart (Marcaine-Epi 0.5%-1:[id number]) 50 ml STK-MED ONCE .ROUTE ; Start 02/23/18 at 09:48; Stop 02/23/18 at 10:48; Status DC Neostigmine Methylsulfate (Neostigmine Methylsulfate) 5 mg STK-MED ONCE .ROUTE ; Start 02/23/18 at 11:39; Stop 02/23/18 at 11:40; Status DC Glycopyrrolate (Robinul) 1 mg STK-MED ONCE .ROUTE ; Start 02/23/18 at 11:39; Stop 02/23/18 at 11:40; Status DC Active Scripts Active Vitamin D2 (Ergocalciferol (Vitamin D2)) 50,000 Unit Capsule 50,000 Unit PO WEEKLY 4 Days Tradjenta (Linagliptin) 5 Mg Tablet 5 Mg PO DAILY 30 Days Glucophage (Metformin Hcl) 500 Mg Tablet 500 Mg PO TIDWMEALS 30 Days Culturelle (Lactobacillus Rhamnosus Gg) 1 Each Cap.sprink 1 Cap PO BID 30 Days Reported Zofran Odt (Ondansetron) 4 Mg Tab.rapdis 1 Tab SL PRN Q8HRS PRN Hydrochlorothiazide Tablet (Hydrochlorothiazide) 12.5 Mg Tablet 1 Tab PO DAILY Benazepril Hcl 20 Mg Tablet 0.5 Tab PO DAILY Norvasc (Amlodipine Besylate) 10 Mg Tablet 5 Mg PO DAILY Potassium Chloride 10 Meq Capsule.er 10 Meq PO DAILY Ferrous Sulfate 325 Mg Tablet 325 Mg PO BID Fenofibrate (Fenofibrate Nanocrystallized) 48 Mg Tablet 48 Mg PO DAILY Sucralfate 1 Gm Tablet 1 Tab PO BID Omeprazole 40 Mg Capsule.dr 1 Cap PO DAILY Atorvastatin Calcium 10 Mg Tablet 10 Mg PO HS Vitals/I & O Vital Sign - Last 24 Hours 02/22/18 02/22/18 02/22/18 02/22/18 15:00 19:15 20:00 22:59 Temp 98.9 99.3 98.5 98.9 99.3 98.5 Pulse 89 76 79 Resp 16 18 18 B/P (MAP) 128/71 (90) 92/43 (59) 113/58 (76) Pulse Ox 95 98 97 O2 Delivery Room Air Room Air Room Air Room Air 02/23/18 02/23/18 02/23/18 02/23/18 03:25 07:00 07:50 08:53 Temp 98.4 100.2 98.4 100.2 Pulse 77 83 83 Resp 18 16 B/P (MAP) 112/62 (79) 97/47 (64) 97/47 Pulse Ox 98 93 O2 Delivery Room Air Room Air Room Air 02/23/18 02/23/18 02/23/18 02/23/18 08:53 09:59 10:21 10:22 Temp 97.6 97.6 Pulse 83 74 74 Resp 16 16 B/P (MAP) 97/47 97/51 Pulse Ox 96 96 O2 Delivery Room Air Room Air Intake and Output 02/22/18 02/22/18 02/23/18 15:00 23:00 07:00 Intake Total 50 ml 300 ml Balance 50 ml 300 ml DENNIS GAYLE III DO Feb 23, 2018 11:59
[2018-02-23] MEDS: ATORVASTATIN CALCIUM 10 MG TABLET. PO SCH (20:20)
[2018-02-23] MEDS: ACETAMINOPHEN 500 MG TABLET PO PRN (20:23)
[2018-02-23] MEDS ORDERED: INSULIN LISPRO 300 UNITS/3 ML INSULN.PEN. SQ ONE (21:30)
[2018-02-24 03:00] VITALS: BP 90/56
[2018-02-24 05:05] LABS: BASO % 0 % (0-3); EOS % 0 % (0-3); HEMATOCRIT 25.1 % (36.0-47.0); HEMOGLOBIN 8.4 g/dL (12.0-15.5); LYMPH # 1.2 x10^3/uL (1.0-4.8); LYMPH % 19 % (24-48); MEAN CORPUSCULAR HEMOGLOBIN 29 pg (25-35); MEAN CORPUSCULAR HGB CONC 34 g/dL (31-37); MEAN CORPUSCULAR VOLUME 85 fL (79-100); MONO # 0.4 x10^3/uL (0.0-1.1); MONO % 7 % (0-9); NEUT # 4.7 x10^3uL (1.8-7.7); NEUT % 74 % (31-73); PLATELET COUNT 249 x10^3/uL (140-400); RED BLOOD COUNT 2.94 x10^6/uL (3.50-5.40); RED CELL DISTRIBUTION WIDTH 13.2 % (11.5-14.5); WHITE BLOOD COUNT 6.4 x10^3/uL (4.0-11.0)
[2018-02-24 05:13] LABS: CALCIUM 8.2 mg/dL (8.5-10.1); GFR 53.1; POTASSIUM 4.3 mmol/L (3.5-5.1)
[2018-02-24] MEDS: MEROPENEM 500 MG in IV NORMAL SALINE 50ML 50 ML IV SCH ×3 (06:00→21:56)
[2018-02-24] MEDS: LANSOPRAZOLE 30 MG TAB.RAP.DR PO SCH ×2 (06:15→09:08)
[2018-02-24 07:00] VITALS: BP 112/62
[2018-02-24] MEDS: IV NORMAL SALINE 1000ML BAG 1,000 ML IV SCH ×3 (08:40→20:14)
[2018-02-24] MEDS: FENOFIBRATE 54 MG TABLET. PO SCH (09:05)
[2018-02-24] MEDS: FERROUS SULFATE 325 MG TABLET. PO SCH ×2 (09:05→17:26)
[2018-02-24] MEDS: LISINOPRIL 10 MG TABLET PO SCH (09:07)
[2018-02-24] MEDS: ACETAMINOPHEN 500 MG TABLET PO PRN (09:07)
[2018-02-24] MEDS: amLODIPine BESYLATE 5 MG TABLET PO SCH (09:07)
[2018-02-24] MEDS: LINAGLIPTIN 5 MG TABLET PO SCH (09:07)
[2018-02-24] MEDS: SUCRALFATE 1 GM TABLET. PO SCH ×2 (09:07→21:56)
[2018-02-24] MEDS: metFORMIN 500 MG TABLET PO SCH ×3 (09:08→17:26)
[2018-02-24] MEDS: LACTOBACILLUS RHAMNOSUS GG 1 CAPSULE. PO SCH ×2 (09:15→21:56)
[2018-02-24] MEDS: hydroCHLOROthiazide 12.5 MG CAPSULE PO SCH (09:16)
[2018-02-24] MEDS: POTASSIUM CHLORIDE 10 MEQ TABLET.ER. PO SCH (09:16)
[2018-02-24] MEDS: INSULIN LISPRO 300 UNITS/3 ML INSULN.PEN. SQ SCH ×3 (09:18→17:33)
[2018-02-24] MEDS: HYDROcodone/APAP 5/325MG 1 TAB TABLET PO PRN (09:20)
--- NOTE | 2018-02-24 09:37 | PDOC ---
SURGICAL PROGRESS NOTE Subjective wants to get up out of bed Vital Signs Vital Signs Date Time Temp Pulse Resp B/P (MAP) Pulse Ox O2 Delivery O2 Flow Rate FiO2 02/24/18 09:20 96 Room Air 02/24/18 09:07 66 112/62 02/24/18 07:00 98.6 16 98.6 02/23/18 12:09 2 I&O Intake and Output 02/24/18 07:00 Intake Total 1400 ml Output Total 0 ml Balance 1400 ml Intake Oral 0 ml IV Total 1400 ml Output Estimated Blood Loss 0 ml # Voids 3 General: Cooperative, No acute distress Skin: Other (wound vac in place) Labs Laboratory Tests Test 02/22/18 11:16 02/22/18 16:35 02/22/18 20:23 02/22/18 21:12 Glucose (Fingerstick) 225 mg/dL (70-99) 105 mg/dL (70-99) 140 mg/dL (70-99) Lactic Acid Level 2.2 mmol/L (0.4-2.0) Test 02/23/18 03:05 02/23/18 07:28 02/23/18 10:16 02/23/18 16:23 White Blood Count 5.2 x10^3/uL (4.0-11.0) Red Blood Count 2.94 x10^6/uL (3.50-5.40) Hemoglobin 8.5 g/dL (12.0-15.5) Hematocrit 24.9 % (36.0-47.0) Mean Corpuscular Volume 85 fL (79-100) Mean Corpuscular Hemoglobin 29 pg (25-35) Mean Corpuscular Hemoglobin Concent 34 g/dL (31-37) Red Cell Distribution Width 13.4 % (11.5-14.5) Platelet Count 213 x10^3/uL (140-400) Neutrophils (%) (Auto) 75 % (31-73) Lymphocytes (%) (Auto) 17 % (24-48) Monocytes (%) (Auto) 7 % (0-9) Eosinophils (%) (Auto) 1 % (0-3) Basophils (%) (Auto) 1 % (0-3) Neutrophils # (Auto) 3.9 x10^3uL (1.8-7.7) Lymphocytes # (Auto) 0.9 x10^3/uL (1.0-4.8) Monocytes # (Auto) 0.4 x10^3/uL (0.0-1.1) Eosinophils # (Auto) 0.0 x10^3/uL (0.0-0.7) Basophils # (Auto) 0.0 x10^3/uL (0.0-0.2) Sodium Level 147 mmol/L (136-145) Potassium Level 3.6 mmol/L (3.5-5.1) Chloride Level 112 mmol/L (98-107) Carbon Dioxide Level 25 mmol/L (21-32) Anion Gap 10 (6-14) Blood Urea Nitrogen 19 mg/dL (7-20) Creatinine 0.9 mg/dL (0.6-1.0) Estimated GFR (Cockcroft-Gault) 59.9 BUN/Creatinine Ratio 21 (6-20) Glucose Level 138 mg/dL (70-99) Calcium Level 7.9 mg/dL (8.5-10.1) Total Bilirubin 0.1 mg/dL (0.2-1.0) Aspartate Amino Transf (AST/SGOT) 11 U/L (15-37) Alanine Aminotransferase (ALT/SGPT) 13 U/L (14-59) Alkaline Phosphatase 64 U/L (46-116) Total Protein 4.8 g/dL (6.4-8.2) Albumin 1.9 g/dL (3.4-5.0) Albumin/Globulin Ratio 0.7 (1.0-1.7) Glucose (Fingerstick) 103 mg/dL (70-99) 98 mg/dL (70-99) 240 mg/dL (70-99) Test 02/23/18 20:53 02/24/18 03:50 02/24/18 07:38 Glucose (Fingerstick) 271 mg/dL (70-99) 294 mg/dL (70-99) White Blood Count 6.4 x10^3/uL (4.0-11.0) Red Blood Count 2.94 x10^6/uL (3.50-5.40) Hemoglobin 8.4 g/dL (12.0-15.5) Hematocrit 25.1 % (36.0-47.0) Mean Corpuscular Volume 85 fL (79-100) Mean Corpuscular Hemoglobin 29 pg (25-35) Mean Corpuscular Hemoglobin Concent 34 g/dL (31-37) Red Cell Distribution Width 13.2 % (11.5-14.5) Platelet Count 249 x10^3/uL (140-400) Neutrophils (%) (Auto) 74 % (31-73) Lymphocytes (%) (Auto) 19 % (24-48) Monocytes (%) (Auto) 7 % (0-9) Eosinophils (%) (Auto) 0 % (0-3) Basophils (%) (Auto) 0 % (0-3) Neutrophils # (Auto) 4.7 x10^3uL (1.8-7.7) Lymphocytes # (Auto) 1.2 x10^3/uL (1.0-4.8) Monocytes # (Auto) 0.4 x10^3/uL (0.0-1.1) Eosinophils # (Auto) 0.0 x10^3/uL (0.0-0.7) Basophils # (Auto) 0.0 x10^3/uL (0.0-0.2) Sodium Level 142 mmol/L (136-145) Potassium Level 4.3 mmol/L (3.5-5.1) Chloride Level 110 mmol/L (98-107) Carbon Dioxide Level 26 mmol/L (21-32) Anion Gap 6 (6-14) Blood Urea Nitrogen 27 mg/dL (7-20) Creatinine 1.0 mg/dL (0.6-1.0) Estimated GFR (Cockcroft-Gault) 53.1 Glucose Level 360 mg/dL (70-99) Calcium Level 8.2 mg/dL (8.5-10.1) Laboratory Tests Test 02/23/18 10:16 02/23/18 16:23 02/23/18 20:53 02/24/18 03:50 Glucose (Fingerstick) 98 mg/dL (70-99) 240 mg/dL (70-99) 271 mg/dL (70-99) White Blood Count 6.4 x10^3/uL (4.0-11.0) Red Blood Count 2.94 x10^6/uL (3.50-5.40) Hemoglobin 8.4 g/dL (12.0-15.5) Hematocrit 25.1 % (36.0-47.0) Mean Corpuscular Volume 85 fL (79-100) Mean Corpuscular Hemoglobin 29 pg (25-35) Mean Corpuscular Hemoglobin Concent 34 g/dL (31-37) Red Cell Distribution Width 13.2 % (11.5-14.5) Platelet Count 249 x10^3/uL (140-400) Neutrophils (%) (Auto) 74 % (31-73) Lymphocytes (%) (Auto) 19 % (24-48) Monocytes (%) (Auto) 7 % (0-9) Eosinophils (%) (Auto) 0 % (0-3) Basophils (%) (Auto) 0 % (0-3) Neutrophils # (Auto) 4.7 x10^3uL (1.8-7.7) Lymphocytes # (Auto) 1.2 x10^3/uL (1.0-4.8) Monocytes # (Auto) 0.4 x10^3/uL (0.0-1.1) Eosinophils # (Auto) 0.0 x10^3/uL (0.0-0.7) Basophils # (Auto) 0.0 x10^3/uL (0.0-0.2) Sodium Level 142 mmol/L (136-145) Potassium Level 4.3 mmol/L (3.5-5.1) Chloride Level 110 mmol/L (98-107) Carbon Dioxide Level 26 mmol/L (21-32) Anion Gap 6 (6-14) Blood Urea Nitrogen 27 mg/dL (7-20) Creatinine 1.0 mg/dL (0.6-1.0) Estimated GFR (Cockcroft-Gault) 53.1 Glucose Level 360 mg/dL (70-99) Calcium Level 8.2 mg/dL (8.5-10.1) Test 02/24/18 07:38 Glucose (Fingerstick) 294 mg/dL (70-99) Assessment/Plan s/p debridement continue wound vac will FU on monday [employer] Feb 24, 2018 09:37
[2018-02-24 11:00] VITALS: BP 111/66
--- NOTE | 2018-02-24 12:16 | PDOC ---
PROGRESS NOTES Chief Complaint Chief Complaint Rt ischial wound Rt and left hip wound Dementia Wheelchair bound Lactic acidosis H/o GERD H/o DM H/o osteoporosis H/o hyperlipidemia H/o HTN History of Present Illness History of Present Illness Pt seen and examined while laying in bed Pt was resting w/NAD noted Discussed w/RN Vitals Vitals Vital Signs Date Time Temp Pulse Resp B/P (MAP) Pulse Ox O2 Delivery O2 Flow Rate FiO2 02/24/18 11:00 98.4 62 16 111/66 (81) 96 Room Air 98.4 02/23/18 12:09 2 Physical Exam Physical Exam Neck: No JVP, no lymphadenopathy General: Cooperative, No acute distress Heart: Regular rate, Normal S1, Normal S2 Lungs: Clear Abdomen: Soft, No tenderness Extremities: Other (atrophied muscles) Skin: Other (wound vac in place) Labs LABS Laboratory Tests Test 02/23/18 16:23 02/23/18 20:53 02/24/18 03:50 02/24/18 07:38 Glucose (Fingerstick) 240 mg/dL (70-99) 271 mg/dL (70-99) 294 mg/dL (70-99) White Blood Count 6.4 x10^3/uL (4.0-11.0) Red Blood Count 2.94 x10^6/uL (3.50-5.40) Hemoglobin 8.4 g/dL (12.0-15.5) Hematocrit 25.1 % (36.0-47.0) Mean Corpuscular Volume 85 fL (79-100) Mean Corpuscular Hemoglobin 29 pg (25-35) Mean Corpuscular Hemoglobin Concent 34 g/dL (31-37) Red Cell Distribution Width 13.2 % (11.5-14.5) Platelet Count 249 x10^3/uL (140-400) Neutrophils (%) (Auto) 74 % (31-73) Lymphocytes (%) (Auto) 19 % (24-48) Monocytes (%) (Auto) 7 % (0-9) Eosinophils (%) (Auto) 0 % (0-3) Basophils (%) (Auto) 0 % (0-3) Neutrophils # (Auto) 4.7 x10^3uL (1.8-7.7) Lymphocytes # (Auto) 1.2 x10^3/uL (1.0-4.8) Monocytes # (Auto) 0.4 x10^3/uL (0.0-1.1) Eosinophils # (Auto) 0.0 x10^3/uL (0.0-0.7) Basophils # (Auto) 0.0 x10^3/uL (0.0-0.2) Sodium Level 142 mmol/L (136-145) Potassium Level 4.3 mmol/L (3.5-5.1) Chloride Level 110 mmol/L (98-107) Carbon Dioxide Level 26 mmol/L (21-32) Anion Gap 6 (6-14) Blood Urea Nitrogen 27 mg/dL (7-20) Creatinine 1.0 mg/dL (0.6-1.0) Estimated GFR (Cockcroft-Gault) 53.1 Glucose Level 360 mg/dL (70-99) Calcium Level 8.2 mg/dL (8.5-10.1) Test 02/24/18 11:24 Glucose (Fingerstick) 269 mg/dL (70-99) Review of Systems Review of Systems Pt was resting, unable to obtain. Assessment and Plan Assessmemt and Plan Assessment: Rt ischial wound Rt and left hip wound Dementia Wheelchair bound Lactic acidosis H/o GERD H/o DM H/o osteoporosis H/o hyperlipidemia H/o HTN Plan: Cont IV ABx Wound care PRN narcotics PT/OT/ST Home meds DVT ppx LTC placement awaiting ? Comment Review of Relevant I have reviewed the following items scott (where applicable) has been applied. Labs Laboratory Tests Test 02/22/18 16:35 02/22/18 20:23 02/22/18 21:12 02/23/18 03:05 Glucose (Fingerstick) 105 mg/dL (70-99) 140 mg/dL (70-99) Lactic Acid Level 2.2 mmol/L (0.4-2.0) White Blood Count 5.2 x10^3/uL (4.0-11.0) Red Blood Count 2.94 x10^6/uL (3.50-5.40) Hemoglobin 8.5 g/dL (12.0-15.5) Hematocrit 24.9 % (36.0-47.0) Mean Corpuscular Volume 85 fL (79-100) Mean Corpuscular Hemoglobin 29 pg (25-35) Mean Corpuscular Hemoglobin Concent 34 g/dL (31-37) Red Cell Distribution Width 13.4 % (11.5-14.5) Platelet Count 213 x10^3/uL (140-400) Neutrophils (%) (Auto) 75 % (31-73) Lymphocytes (%) (Auto) 17 % (24-48) Monocytes (%) (Auto) 7 % (0-9) Eosinophils (%) (Auto) 1 % (0-3) Basophils (%) (Auto) 1 % (0-3) Neutrophils # (Auto) 3.9 x10^3uL (1.8-7.7) Lymphocytes # (Auto) 0.9 x10^3/uL (1.0-4.8) Monocytes # (Auto) 0.4 x10^3/uL (0.0-1.1) Eosinophils # (Auto) 0.0 x10^3/uL (0.0-0.7) Basophils # (Auto) 0.0 x10^3/uL (0.0-0.2) Sodium Level 147 mmol/L (136-145) Potassium Level 3.6 mmol/L (3.5-5.1) Chloride Level 112 mmol/L (98-107) Carbon Dioxide Level 25 mmol/L (21-32) Anion Gap 10 (6-14) Blood Urea Nitrogen 19 mg/dL (7-20) Creatinine 0.9 mg/dL (0.6-1.0) Estimated GFR (Cockcroft-Gault) 59.9 BUN/Creatinine Ratio 21 (6-20) Glucose Level 138 mg/dL (70-99) Calcium Level 7.9 mg/dL (8.5-10.1) Total Bilirubin 0.1 mg/dL (0.2-1.0) Aspartate Amino Transf (AST/SGOT) 11 U/L (15-37) Alanine Aminotransferase (ALT/SGPT) 13 U/L (14-59) Alkaline Phosphatase 64 U/L (46-116) Total Protein 4.8 g/dL (6.4-8.2) Albumin 1.9 g/dL (3.4-5.0) Albumin/Globulin Ratio 0.7 (1.0-1.7) Test 02/23/18 07:28 02/23/18 10:16 02/23/18 16:23 02/23/18 20:53 Glucose (Fingerstick) 103 mg/dL (70-99) 98 mg/dL (70-99) 240 mg/dL (70-99) 271 mg/dL (70-99) Test 02/24/18 03:50 02/24/18 07:38 02/24/18 11:24 White Blood Count 6.4 x10^3/uL (4.0-11.0) Red Blood Count 2.94 x10^6/uL (3.50-5.40) Hemoglobin 8.4 g/dL (12.0-15.5) Hematocrit 25.1 % (36.0-47.0) Mean Corpuscular Volume 85 fL (79-100) Mean Corpuscular Hemoglobin 29 pg (25-35) Mean Corpuscular Hemoglobin Concent 34 g/dL (31-37) Red Cell Distribution Width 13.2 % (11.5-14.5) Platelet Count 249 x10^3/uL (140-400) Neutrophils (%) (Auto) 74 % (31-73) Lymphocytes (%) (Auto) 19 % (24-48) Monocytes (%) (Auto) 7 % (0-9) Eosinophils (%) (Auto) 0 % (0-3) Basophils (%) (Auto) 0 % (0-3) Neutrophils # (Auto) 4.7 x10^3uL (1.8-7.7) Lymphocytes # (Auto) 1.2 x10^3/uL (1.0-4.8) Monocytes # (Auto) 0.4 x10^3/uL (0.0-1.1) Eosinophils # (Auto) 0.0 x10^3/uL (0.0-0.7) Basophils # (Auto) 0.0 x10^3/uL (0.0-0.2) Sodium Level 142 mmol/L (136-145) Potassium Level 4.3 mmol/L (3.5-5.1) Chloride Level 110 mmol/L (98-107) Carbon Dioxide Level 26 mmol/L (21-32) Anion Gap 6 (6-14) Blood Urea Nitrogen 27 mg/dL (7-20) Creatinine 1.0 mg/dL (0.6-1.0) Estimated GFR (Cockcroft-Gault) 53.1 Glucose Level 360 mg/dL (70-99) Calcium Level 8.2 mg/dL (8.5-10.1) Glucose (Fingerstick) 294 mg/dL (70-99) 269 mg/dL (70-99) Laboratory Tests Test 02/23/18 16:23 02/23/18 20:53 02/24/18 03:50 02/24/18 07:38 Glucose (Fingerstick) 240 mg/dL (70-99) 271 mg/dL (70-99) 294 mg/dL (70-99) White Blood Count 6.4 x10^3/uL (4.0-11.0) Red Blood Count 2.94 x10^6/uL (3.50-5.40) Hemoglobin 8.4 g/dL (12.0-15.5) Hematocrit 25.1 % (36.0-47.0) Mean Corpuscular Volume 85 fL (79-100) Mean Corpuscular Hemoglobin 29 pg (25-35) Mean Corpuscular Hemoglobin Concent 34 g/dL (31-37) Red Cell Distribution Width 13.2 % (11.5-14.5) Platelet Count 249 x10^3/uL (140-400) Neutrophils (%) (Auto) 74 % (31-73) Lymphocytes (%) (Auto) 19 % (24-48) Monocytes (%) (Auto) 7 % (0-9) Eosinophils (%) (Auto) 0 % (0-3) Basophils (%) (Auto) 0 % (0-3) Neutrophils # (Auto) 4.7 x10^3uL (1.8-7.7) Lymphocytes # (Auto) 1.2 x10^3/uL (1.0-4.8) Monocytes # (Auto) 0.4 x10^3/uL (0.0-1.1) Eosinophils # (Auto) 0.0 x10^3/uL (0.0-0.7) Basophils # (Auto) 0.0 x10^3/uL (0.0-0.2) Sodium Level 142 mmol/L (136-145) Potassium Level 4.3 mmol/L (3.5-5.1) Chloride Level 110 mmol/L (98-107) Carbon Dioxide Level 26 mmol/L (21-32) Anion Gap 6 (6-14) Blood Urea Nitrogen 27 mg/dL (7-20) Creatinine 1.0 mg/dL (0.6-1.0) Estimated GFR (Cockcroft-Gault) 53.1 Glucose Level 360 mg/dL (70-99) Calcium Level 8.2 mg/dL (8.5-10.1) Test 02/24/18 11:24 Glucose (Fingerstick) 269 mg/dL (70-99) Microbiology 02/21/18 Blood Culture - Preliminary, Resulted NO GROWTH AFTER 2 DAYS Medications Current Medications Vancomycin HCl (Vanco Per Pharmacy) 1 each PRN DAILY PRN MC SEE COMMENTS; Start 02/21/18 at 13:30; Stop 02/21/18 at 17:03; Status DC Sodium Chloride 1,000 ml @ 75 mls/hr [id number] IV Last administered on at 08:40; Start 02/21/18 at 14:00 Atorvastatin Calcium (Lipitor) 10 mg HS PO Last administered on 02/23/18at 20: 20; Start 02/21/18 at 21:00 Ergocalciferol (Vitamin D2) 50,000 unit WEEKLY PO ; Start 02/28/18 at 09:00 Ferrous Sulfate (Feosol) 325 mg BIDWMEALS PO Last administered on 02/24/18at 09 :05; Start 02/21/18 at 17:00 Lactobacillus Rhamnosus (Culturelle) 1 cap BID PO Last administered on at 09:15; Start 02/21/18 at 21:00 Ondansetron HCl (Zofran Odt) 4 mg PRN Q8HRS PRN PO NAUSEA; Start 02/21/18 at 14:45; Stop 02/21/18 at 19:15; Status DC Potassium Chloride (Klor-Con) 10 meq DAILY PO Last administered on 02/24/18at 09:16; Start 02/21/18 at 15:30 Lisinopril (Prinivil) 10 mg DAILY PO Last administered on 02/24/18at 09:07; Start 02/21/18 at 15:30 Fenofibrate (Lofibra) 54 mg DAILY PO Last administered on 02/24/18at 09:05; Start 02/22/18 at 09:00 Hydrochlorothiazide (Microzide) 12.5 mg DAILY PO Last administered on at 09:16; Start 02/21/18 at 15:30 Linagliptin (Tradjenta) 5 mg DAILY PO Last administered on 02/24/18 09:07; Start 02/21/18 at 15:30 Metformin HCl (Glucophage) 500 mg TIDWMEALS PO Last administered on 02/24/18at 09:08; Start 02/21/18 at 17:00 Pantoprazole Sodium (Protonix) 40 mg DAILYAC PO Last administered on 07:32; Start 02/21/18 at 15:30; Stop 02/23/18 at 20:08; Status DC Sucralfate (Carafate) 1 gm BID PO Last administered on 02/24/18at 09:07; Start 02/21/18 at 21:00 Amlodipine Besylate (Norvasc) 5 mg DAILY PO Last administered on 02/24/18at 09: 07; Start 02/21/18 at 15:30 Ampicillin Sodium/ Sulbactam Sodium 1.5 gm/Sodium Chloride 50 ml @ 100 mls/hr Q6HRS IV ; Start 02/21/18 at 18:00; Stop 02/21/18 at 18:00; Status DC Meropenem 500 mg/ Sodium Chloride 50 ml @ 100 mls/hr Q8HRS IV Last administered on 02/24/18at 06:00; Start 02/21/18 at 17:00 Insulin Human Lispro (HumaLOG) 10 units 1X ONCE SQ Last administered on at 17:27; Start 02/21/18 at 17:00; Stop 02/21/18 at 17:01; Status DC Sodium Chloride 1,000 ml @ 166.667 mls/hr Q6H IV Last administered on at 18:24; Start 02/21/18 at 18:24; Stop 02/21/18 at 19:43; Status DC Dobutamine HCl/ Dextrose 250 ml @ 0 mls/hr CONT PRN IV SEE I/O RECORD; Start 02/21/18 at 18:30; Stop 02/21/18 at 18:35; Status DC Acetaminophen/ Hydrocodone Bitart (Lortab 5/325) 1 tab PRN Q4HRS PRN PO PAIN Last administered on 02/24/18at 09:20; Start 02/21/18 at 19:15 Acetaminophen (Tylenol) 500 mg PRN Q6HRS PRN PO HEADACHE / TEMP Last administered on 02/24/18at 09:07; Start 02/21/18 at 19:15 Ondansetron HCl (Zofran) 4 mg PRN Q6HRS PRN IV NAUSEA/VOMITING; Start at 19:15 Ondansetron HCl (Zofran Odt) 4 mg PRN Q6HRS PRN PO NAUSEA/VOMITING; Start at 19:15 Insulin Human Lispro (HumaLOG) 0-9 UNITS TIDWMEALS SQ Last administered on at 09:18; Start 02/22/18 at 08:00 Dextrose (Dextrose 50%-Water Syringe) 12.5 gm PRN Q15MIN PRN IV SEE COMMENTS; Start 02/21/18 at 19:15 Prochlorperazine Edisylate (Compazine) 5 mg PACU PRN PRN IV NAUSEA, MRX1; Start 02/23/18 at 07:00; Stop 02/24/18 at 06:59; Status DC Hydromorphone HCl (Dilaudid) 0.5 mg PRN Q10MIN PRN IV SEV PAIN, Second choice; Start 02/23/18 at 07:00; Stop 02/24/18 at 06:59; Status DC Lidocaine HCl (Xylocaine-Mpf 1% 2ml Vial) 2 ml PRN 1X PRN ID IV START; Start 02/23/18 at 07:00; Stop 02/24/18 at 06:59; Status DC Ringer's Solution 1,000 ml @ 30 mls/hr Q24H IV ; Start 02/23/18 at 07:00; Stop 02/23/18 at 18:59; Status DC Morphine Sulfate (Morphine Sulfate) 1 mg PRN Q10MIN PRN IV SEVERE PAIN; Start 02/23/18 at 07:00; Stop 02/24/18 at 06:59; Status DC Fentanyl Citrate (Fentanyl 2ml Vial) 50 mcg PRN Q5MIN PRN IV MODERATE TO SEVERE PAIN; Start 02/23/18 at 07:00; Stop 02/24/18 at 06:59; Status DC Fentanyl Citrate (Fentanyl 2ml Vial) 25 mcg PRN Q5MIN PRN IV MILD PAIN; Start 02/23/18 at 07:00; Stop 02/24/18 at 06:59; Status DC Ondansetron HCl (Zofran) 4 mg PRN Q6HRS PRN IV NAUSEA/VOMITING; Start at 07:00; Stop 02/24/18 at 06:59; Status DC Rocuronium [place] (Zemuron) 50 mg STK-MED ONCE .ROUTE ; Start 02/23/18 at 10: 01; Stop 02/23/18 at 10:02; Status DC Fentanyl Citrate (Fentanyl 2ml Vial) 100 mcg STK-MED ONCE .ROUTE ; Start at 10:01; Stop 02/23/18 at 10:02; Status DC Sevoflurane (Ultane) 30 ml STK-MED ONCE IH ; Start 02/23/18 at 10:01; Stop at 10:02; Status DC Propofol 20 ml @ As Directed STK-MED ONCE IV ; Start 02/23/18 at 10:02; Stop 02/23/18 at 10:03; Status DC Phenylephrine HCl (PHENYLEPHRINE in 0.9% NACL PF) 1 mg STK-MED ONCE IV ; Start 02/23/18 at 10:02; Stop 02/23/18 at 10:03; Status DC Dexamethasone Sodium Phosphate (Decadron) 20 mg STK-MED ONCE .ROUTE ; Start at 10:02; Stop 02/23/18 at 10:03; Status DC Ondansetron HCl (Zofran) 4 mg STK-MED ONCE .ROUTE ; Start 02/23/18 at 10:02; Stop 02/23/18 at 10:03; Status DC Sodium Chloride 1,000 ml @ 75 mls/hr [id number] IV Last administered on at 06:00; Start 02/23/18 at 10:30 Bupivacaine HCl/ Epinephrine Bitart (Sensorcain-Mpf Epi 0.5%-1:[id number]) 30 ml STK -MED ONCE .ROUTE ; Start 02/23/18 at 09:46; Stop 02/23/18 at 10:47; Status DC Bupivacaine HCl/ Epinephrine Bitart (Marcaine-Epi 0.5%-1:[id number]) 50 ml STK-MED ONCE .ROUTE ; Start 02/23/18 at 09:48; Stop 02/23/18 at 10:48; Status DC Neostigmine Methylsulfate (Neostigmine Methylsulfate) 5 mg STK-MED ONCE .ROUTE ; Start 02/23/18 at 11:39; Stop 02/23/18 at 11:40; Status DC Glycopyrrolate (Robinul) 1 mg STK-MED ONCE .ROUTE ; Start 02/23/18 at 11:39; Stop 02/23/18 at 11:40; Status DC Lansoprazole (Prevacid) 30 mg DAILYAC PO Last administered on 02/24/18at 09:08 ; Start 02/24/18 at 07:30 Insulin Human Lispro (HumaLOG) 4 units 1X ONCE SQ Last administered on at 21:50; Start 02/23/18 at 21:30; Stop 02/23/18 at 21:31; Status DC Active Scripts Active Vitamin D2 (Ergocalciferol (Vitamin D2)) 50,000 Unit Capsule 50,000 Unit PO WEEKLY 4 Days Tradjenta (Linagliptin) 5 Mg Tablet 5 Mg PO DAILY 30 Days Glucophage (Metformin Hcl) 500 Mg Tablet 500 Mg PO TIDWMEALS 30 Days Culturelle (Lactobacillus Rhamnosus Gg) 1 Each Cap.sprink 1 Cap PO BID 30 Days Reported Zofran Odt (Ondansetron) 4 Mg Tab.rapdis 1 Tab SL PRN Q8HRS PRN Hydrochlorothiazide Tablet (Hydrochlorothiazide) 12.5 Mg Tablet 1 Tab PO DAILY Benazepril Hcl 20 Mg Tablet 0.5 Tab PO DAILY Norvasc (Amlodipine Besylate) 10 Mg Tablet 5 Mg PO DAILY Potassium Chloride 10 Meq Capsule.er 10 Meq PO DAILY Ferrous Sulfate 325 Mg Tablet 325 Mg PO BID Fenofibrate (Fenofibrate Nanocrystallized) 48 Mg Tablet 48 Mg PO DAILY Sucralfate 1 Gm Tablet 1 Tab PO BID Omeprazole 40 Mg Capsule.dr 1 Cap PO DAILY Atorvastatin Calcium 10 Mg Tablet 10 Mg PO HS Vitals/I & O Vital Sign - Last 24 Hours 10/2602/23/18 02/23/18 02/23/18 12:24 12:39 12:54 13:11 Temp 99.4 99.4 96.8 99.4 99.4 96.8 Pulse 66 69 66 67 Resp 16 16 16 16 B/P (MAP) 110/54 101/49 102/51 95/42 (59) Pulse Ox 98 97 97 95 O2 Delivery Room Air Room Air Room Air Room Air 02/23/18 02/23/18 02/23/18 02/23/18 13:15 13:25 13:40 13:54 Pulse 75 78 85 82 B/P (MAP) 100/53 (69) 109/50 (69) 104/51 (68) 100/48 (65) Pulse Ox 96 97 84 95 O2 Delivery Room Air Room Air Room Air Room Air 02/23/18 02/23/18 02/23/18 02/23/18 14:09 14:39 15:40 16:39 Pulse 88 78 72 68 B/P (MAP) 104/48 (66) 109/56 (73) 85/43 (57) 89/45 (60) Pulse Ox 87 92 93 93 O2 Delivery Room Air Room Air Room Air Room Air 02/23/18 02/23/18 02/23/18 02/23/18 17:53 19:00 20:00 23:00 Temp 100.4 98.9 100.4 98.9 Pulse 75 85 79 Resp 18 18 B/P (MAP) 89/47 (61) 98/49 (65) 96/57 (70) Pulse Ox 94 95 94 O2 Delivery Room Air Room Air Room Air Room Air 02/24/18 02/24/18 02/24/18 02/24/18 03:00 07:00 08:00 09:07 Temp 98.7 98.6 98.7 98.6 Pulse 76 66 66 Resp 18 16 B/P (MAP) 90/56 (67) 112/62 (79) 112/62 Pulse Ox 92 96 O2 Delivery Room Air Room Air Room Air 02/24/18 02/24/18 02/24/18 02/24/18 09:07 09:20 10:43 11:00 Temp 98.4 98.4 Pulse 66 62 Resp 16 B/P (MAP) 112/62 111/66 (81) Pulse Ox 96 96 96 O2 Delivery Room Air Room Air Room Air Intake and Output 02/23/18 02/23/18 02/24/18 15:00 23:00 07:00 Intake Total 1400 ml 0 ml Output Total 0 ml Balance 1400 ml 0 ml DENNIS GAYLE III DO Feb 24, 2018 12:16
[2018-02-24 15:00] VITALS: BP 99/53
--- NOTE | 2018-02-24 15:38 | PDOC ---
Infectious Disease Note Subjective Subjective Patient says she is doing fine Denies pain/upset stomach Low-grade temp last evening Vital Sign Vital Signs Vital Signs Date Time Temp Pulse Resp B/P (MAP) Pulse Ox O2 Delivery O2 Flow Rate FiO2 02/24/18 11:00 98.4 62 16 111/66 (81) 96 Room Air 98.4 02/23/18 12:09 2 Physical Exam PHYSICAL EXAM GENERAL: Propped up in bed, eating pudding HEENT: Oral cavity clear NECK: Supple. LUNGS: Clear. HEART: S1, S2 regular. ABDOMEN: Soft, NT SKIN: w/o rash. Multiple wounds. Right ischial wound wound vac in place. EXTREMITIES: No edema or cyanosis MOTORS AND CONTROLS TESTER: Alert, follows simple commands Labs Lab Laboratory Tests Test 02/23/18 16:23 02/23/18 20:53 02/24/18 03:50 02/24/18 07:38 Glucose (Fingerstick) 240 mg/dL (70-99) 271 mg/dL (70-99) 294 mg/dL (70-99) White Blood Count 6.4 x10^3/uL (4.0-11.0) Red Blood Count 2.94 x10^6/uL (3.50-5.40) Hemoglobin 8.4 g/dL (12.0-15.5) Hematocrit 25.1 % (36.0-47.0) Mean Corpuscular Volume 85 fL (79-100) Mean Corpuscular Hemoglobin 29 pg (25-35) Mean Corpuscular Hemoglobin Concent 34 g/dL (31-37) Red Cell Distribution Width 13.2 % (11.5-14.5) Platelet Count 249 x10^3/uL (140-400) Neutrophils (%) (Auto) 74 % (31-73) Lymphocytes (%) (Auto) 19 % (24-48) Monocytes (%) (Auto) 7 % (0-9) Eosinophils (%) (Auto) 0 % (0-3) Basophils (%) (Auto) 0 % (0-3) Neutrophils # (Auto) 4.7 x10^3uL (1.8-7.7) Lymphocytes # (Auto) 1.2 x10^3/uL (1.0-4.8) Monocytes # (Auto) 0.4 x10^3/uL (0.0-1.1) Eosinophils # (Auto) 0.0 x10^3/uL (0.0-0.7) Basophils # (Auto) 0.0 x10^3/uL (0.0-0.2) Sodium Level 142 mmol/L (136-145) Potassium Level 4.3 mmol/L (3.5-5.1) Chloride Level 110 mmol/L (98-107) Carbon Dioxide Level 26 mmol/L (21-32) Anion Gap 6 (6-14) Blood Urea Nitrogen 27 mg/dL (7-20) Creatinine 1.0 mg/dL (0.6-1.0) Estimated GFR (Cockcroft-Gault) 53.1 Glucose Level 360 mg/dL (70-99) Calcium Level 8.2 mg/dL (8.5-10.1) Test 02/24/18 11:24 Glucose (Fingerstick) 269 mg/dL (70-99) Micro Microbiology 02/21/18 Blood Culture - Preliminary, Resulted NO GROWTH AFTER 2 DAYS Objective Assessment Right ischial wound s/p excisional debridement 02/23 Right and left hip wound Dementia Wheelchair bound Plan Plan of Care Continue meropenem Wound care supportive care Patient seen and examined. Chart reviewed in detail.case discussed with HYPERION DEVELOPER> Agree with above plan. FLAVIO WADDELL APRN Feb 24, 2018 15:38 ANAHY SOLIS MD Feb 24, 2018 22:46
[2018-02-24 19:00] VITALS: BP 95/45
[2018-02-24] MEDS: ATORVASTATIN CALCIUM 10 MG TABLET. PO SCH (21:56)
[2018-02-24 22:52] VITALS: BP 97/51
[2018-02-25] MEDS: IV NORMAL SALINE 1000ML BAG 1,000 ML IV SCH ×3 (02:30→15:50)
[2018-02-25 03:00] VITALS: BP 101/49
[2018-02-25] MEDS: MEROPENEM 500 MG in IV NORMAL SALINE 50ML 50 ML IV SCH ×3 (06:10→22:00)
[2018-02-25 07:00] VITALS: BP 111/71
[2018-02-25] MEDS: INSULIN LISPRO 300 UNITS/3 ML INSULN.PEN. SQ SCH ×3 (08:00→17:48)
[2018-02-25] MEDS: metFORMIN 500 MG TABLET PO SCH ×3 (09:52→17:34)
[2018-02-25] MEDS: FERROUS SULFATE 325 MG TABLET. PO SCH ×2 (09:52→17:34)
[2018-02-25] MEDS: LANSOPRAZOLE 30 MG TAB.RAP.DR PO SCH (09:52)
[2018-02-25] MEDS: LINAGLIPTIN 5 MG TABLET PO SCH (09:52)
[2018-02-25] MEDS: FENOFIBRATE 54 MG TABLET. PO SCH (09:52)
[2018-02-25] MEDS: LACTOBACILLUS RHAMNOSUS GG 1 CAPSULE. PO SCH ×2 (09:53→21:12)
[2018-02-25] MEDS: amLODIPine BESYLATE 5 MG TABLET PO SCH (09:53)
[2018-02-25] MEDS: SUCRALFATE 1 GM TABLET. PO SCH ×2 (09:53→21:12)
[2018-02-25] MEDS: POTASSIUM CHLORIDE 10 MEQ TABLET.ER. PO SCH (09:53)
[2018-02-25] MEDS: HYDROcodone/APAP 5/325MG 1 TAB TABLET PO PRN (09:54)
[2018-02-25] MEDS: LISINOPRIL 10 MG TABLET PO SCH (09:54)
[2018-02-25] MEDS: hydroCHLOROthiazide 12.5 MG CAPSULE PO SCH (09:54)
[2018-02-25 11:00] VITALS: BP 112/60
--- NOTE | 2018-02-25 11:55 | PDOC ---
Infectious Disease Note Subjective Subjective Feeling fine Hungry Denies pain No fevers ROS ROS per HPI Vital Sign Vital Signs Vital Signs Date Time Temp Pulse Resp B/P (MAP) Pulse Ox O2 Delivery O2 Flow Rate FiO2 02/25/18 09:54 95 Room Air 02/25/18 09:54 72 111/71 02/25/18 07:00 97.9 16 97.9 Physical Exam PHYSICAL EXAM GENERAL: Propped up in bed, alert, NAD HEENT: Oral cavity clear, missing teeth NECK: Supple. LUNGS: Clear. HEART: S1, S2 regular. ABDOMEN: Soft, NT SKIN: w/o rash. Multiple wounds. Right ischial wound wound vac in place. EXTREMITIES: No edema or cyanosis ADVERTISING DISPLAY ROTATOR: Alert, responds appropriately, follows simple commands Labs Lab Laboratory Tests Test 02/24/18 16:56 02/24/18 20:56 02/25/18 08:39 Glucose (Fingerstick) 167 mg/dL (70-99) 116 mg/dL (70-99) 110 mg/dL (70-99) Micro Microbiology 02/21/18 Blood Culture - Preliminary, Resulted NO GROWTH AFTER 3 DAYS Objective Assessment Right ischial wound s/p excisional debridement 02/23 Right and left hip wound Dementia Wheelchair bound Anemia Plan Plan of Care Continue meropenem Monitor labs Wound care Supportive care Patient seen and examined. Chart reviewed in detail. Case discussed with DYNAMICS AX TECHNICAL ARCHITECT. Agree with above Plan. FLAVIO WADDELL APRN Feb 25, 2018 11:55 ANAHY SOLIS MD Feb 25, 2018 19:17
[2018-02-25 12:34] LABS: BASO % 0 % (0-3); EOS # 0.1 x10^3/uL (0.0-0.7); EOS % 1 % (0-3); HEMATOCRIT 27.7 % (36.0-47.0); HEMOGLOBIN 9.4 g/dL (12.0-15.5); LYMPH # 1.2 x10^3/uL (1.0-4.8); LYMPH % 18 % (24-48); MEAN CORPUSCULAR HEMOGLOBIN 29 pg (25-35); MEAN CORPUSCULAR HGB CONC 34 g/dL (31-37); MEAN CORPUSCULAR VOLUME 85 fL (79-100); MONO # 0.4 x10^3/uL (0.0-1.1); MONO % 6 % (0-9); NEUT # 4.8 x10^3uL (1.8-7.7); NEUT % 74 % (31-73); PLATELET COUNT 292 x10^3/uL (140-400); RED BLOOD COUNT 3.27 x10^6/uL (3.50-5.40); RED CELL DISTRIBUTION WIDTH 13.3 % (11.5-14.5); WHITE BLOOD COUNT 6.5 x10^3/uL (4.0-11.0)
[2018-02-25 12:49] LABS: CREATININE 0.9 mg/dL (0.6-1.0); GFR 59.9; POTASSIUM 3.9 mmol/L (3.5-5.1)
--- NOTE | 2018-02-25 13:10 | PDOC ---
PROGRESS NOTES Chief Complaint Chief Complaint Rt ischial wound Rt and left hip wound Dementia Wheelchair bound Lactic acidosis H/o GERD H/o DM H/o osteoporosis H/o hyperlipidemia H/o HTN History of Present Illness History of Present Illness Pt seen and examined while asleep in bed Pt appeared to be in NAD Vitals Vitals Vital Signs Date Time Temp Pulse Resp B/P (MAP) Pulse Ox O2 Delivery O2 Flow Rate FiO2 02/25/18 11:00 96.3 82 16 112/60 (77) 94 Room Air 96.3 Physical Exam Physical Exam HEENT: Oral cavity clear, missing teeth Neck: Supple, no JVD General: No acute distress, Other (Pt was asleep but appeared to be in NAD) Heart: Regular rate, Normal S1, Normal S2 Lungs: Clear Abdomen: Normal bowel sounds, Soft Extremities: Other (atrophied muscles) Skin: Other (wound vac in place) Labs LABS Laboratory Tests Test 02/24/18 16:56 02/24/18 20:56 02/25/18 08:39 02/25/18 11:52 Glucose (Fingerstick) 167 mg/dL (70-99) 116 mg/dL (70-99) 110 mg/dL (70-99) 189 mg/dL (70-99) Test 02/25/18 12:20 White Blood Count 6.5 x10^3/uL (4.0-11.0) Red Blood Count 3.27 x10^6/uL (3.50-5.40) Hemoglobin 9.4 g/dL (12.0-15.5) Hematocrit 27.7 % (36.0-47.0) Mean Corpuscular Volume 85 fL (79-100) Mean Corpuscular Hemoglobin 29 pg (25-35) Mean Corpuscular Hemoglobin Concent 34 g/dL (31-37) Red Cell Distribution Width 13.3 % (11.5-14.5) Platelet Count 292 x10^3/uL (140-400) Neutrophils (%) (Auto) 74 % (31-73) Lymphocytes (%) (Auto) 18 % (24-48) Monocytes (%) (Auto) 6 % (0-9) Eosinophils (%) (Auto) 1 % (0-3) Basophils (%) (Auto) 0 % (0-3) Neutrophils # (Auto) 4.8 x10^3uL (1.8-7.7) Lymphocytes # (Auto) 1.2 x10^3/uL (1.0-4.8) Monocytes # (Auto) 0.4 x10^3/uL (0.0-1.1) Eosinophils # (Auto) 0.1 x10^3/uL (0.0-0.7) Basophils # (Auto) 0.0 x10^3/uL (0.0-0.2) Sodium Level 139 mmol/L (136-145) Potassium Level 3.9 mmol/L (3.5-5.1) Chloride Level 107 mmol/L (98-107) Carbon Dioxide Level 25 mmol/L (21-32) Anion Gap 7 (6-14) Blood Urea Nitrogen 14 mg/dL (7-20) Creatinine 0.9 mg/dL (0.6-1.0) Estimated GFR (Cockcroft-Gault) 59.9 Glucose Level 222 mg/dL (70-99) Calcium Level 8.0 mg/dL (8.5-10.1) Review of Systems Review of Systems Pt was asleep during visit but appeared to be in NAD Assessment and Plan Assessmemt and Plan Assessment: Rt ischial wound Rt and left hip wound Dementia Wheelchair bound Lactic acidosis H/o GERD H/o DM H/o osteoporosis H/o hyperlipidemia H/o HTN Plan: Cont IV abx Cont wound care PRN narcotics PT/OT/ST Home meds DVT ppx LTC placement? Comment Review of Relevant I have reviewed the following items scott (where applicable) has been applied. Labs Laboratory Tests Test 02/23/18 16:23 02/23/18 20:53 02/24/18 03:50 02/24/18 07:38 Glucose (Fingerstick) 240 mg/dL (70-99) 271 mg/dL (70-99) 294 mg/dL (70-99) White Blood Count 6.4 x10^3/uL (4.0-11.0) Red Blood Count 2.94 x10^6/uL (3.50-5.40) Hemoglobin 8.4 g/dL (12.0-15.5) Hematocrit 25.1 % (36.0-47.0) Mean Corpuscular Volume 85 fL (79-100) Mean Corpuscular Hemoglobin 29 pg (25-35) Mean Corpuscular Hemoglobin Concent 34 g/dL (31-37) Red Cell Distribution Width 13.2 % (11.5-14.5) Platelet Count 249 x10^3/uL (140-400) Neutrophils (%) (Auto) 74 % (31-73) Lymphocytes (%) (Auto) 19 % (24-48) Monocytes (%) (Auto) 7 % (0-9) Eosinophils (%) (Auto) 0 % (0-3) Basophils (%) (Auto) 0 % (0-3) Neutrophils # (Auto) 4.7 x10^3uL (1.8-7.7) Lymphocytes # (Auto) 1.2 x10^3/uL (1.0-4.8) Monocytes # (Auto) 0.4 x10^3/uL (0.0-1.1) Eosinophils # (Auto) 0.0 x10^3/uL (0.0-0.7) Basophils # (Auto) 0.0 x10^3/uL (0.0-0.2) Sodium Level 142 mmol/L (136-145) Potassium Level 4.3 mmol/L (3.5-5.1) Chloride Level 110 mmol/L (98-107) Carbon Dioxide Level 26 mmol/L (21-32) Anion Gap 6 (6-14) Blood Urea Nitrogen 27 mg/dL (7-20) Creatinine 1.0 mg/dL (0.6-1.0) Estimated GFR (Cockcroft-Gault) 53.1 Glucose Level 360 mg/dL (70-99) Calcium Level 8.2 mg/dL (8.5-10.1) Test 02/24/18 11:24 02/24/18 16:56 02/24/18 20:56 02/25/18 08:39 Glucose (Fingerstick) 269 mg/dL (70-99) 167 mg/dL (70-99) 116 mg/dL (70-99) 110 mg/dL (70-99) Test 02/25/18 11:52 02/25/18 12:20 Glucose (Fingerstick) 189 mg/dL (70-99) White Blood Count 6.5 x10^3/uL (4.0-11.0) Red Blood Count 3.27 x10^6/uL (3.50-5.40) Hemoglobin 9.4 g/dL (12.0-15.5) Hematocrit 27.7 % (36.0-47.0) Mean Corpuscular Volume 85 fL (79-100) Mean Corpuscular Hemoglobin 29 pg (25-35) Mean Corpuscular Hemoglobin Concent 34 g/dL (31-37) Red Cell Distribution Width 13.3 % (11.5-14.5) Platelet Count 292 x10^3/uL (140-400) Neutrophils (%) (Auto) 74 % (31-73) Lymphocytes (%) (Auto) 18 % (24-48) Monocytes (%) (Auto) 6 % (0-9) Eosinophils (%) (Auto) 1 % (0-3) Basophils (%) (Auto) 0 % (0-3) Neutrophils # (Auto) 4.8 x10^3uL (1.8-7.7) Lymphocytes # (Auto) 1.2 x10^3/uL (1.0-4.8) Monocytes # (Auto) 0.4 x10^3/uL (0.0-1.1) Eosinophils # (Auto) 0.1 x10^3/uL (0.0-0.7) Basophils # (Auto) 0.0 x10^3/uL (0.0-0.2) Sodium Level 139 mmol/L (136-145) Potassium Level 3.9 mmol/L (3.5-5.1) Chloride Level 107 mmol/L (98-107) Carbon Dioxide Level 25 mmol/L (21-32) Anion Gap 7 (6-14) Blood Urea Nitrogen 14 mg/dL (7-20) Creatinine 0.9 mg/dL (0.6-1.0) Estimated GFR (Cockcroft-Gault) 59.9 Glucose Level 222 mg/dL (70-99) Calcium Level 8.0 mg/dL (8.5-10.1) Laboratory Tests Test 02/24/18 16:56 02/24/18 20:56 02/25/18 08:39 02/25/18 11:52 Glucose (Fingerstick) 167 mg/dL (70-99) 116 mg/dL (70-99) 110 mg/dL (70-99) 189 mg/dL (70-99) Test 02/25/18 12:20 White Blood Count 6.5 x10^3/uL (4.0-11.0) Red Blood Count 3.27 x10^6/uL (3.50-5.40) Hemoglobin 9.4 g/dL (12.0-15.5) Hematocrit 27.7 % (36.0-47.0) Mean Corpuscular Volume 85 fL (79-100) Mean Corpuscular Hemoglobin 29 pg (25-35) Mean Corpuscular Hemoglobin Concent 34 g/dL (31-37) Red Cell Distribution Width 13.3 % (11.5-14.5) Platelet Count 292 x10^3/uL (140-400) Neutrophils (%) (Auto) 74 % (31-73) Lymphocytes (%) (Auto) 18 % (24-48) Monocytes (%) (Auto) 6 % (0-9) Eosinophils (%) (Auto) 1 % (0-3) Basophils (%) (Auto) 0 % (0-3) Neutrophils # (Auto) 4.8 x10^3uL (1.8-7.7) Lymphocytes # (Auto) 1.2 x10^3/uL (1.0-4.8) Monocytes # (Auto) 0.4 x10^3/uL (0.0-1.1) Eosinophils # (Auto) 0.1 x10^3/uL (0.0-0.7) Basophils # (Auto) 0.0 x10^3/uL (0.0-0.2) Sodium Level 139 mmol/L (136-145) Potassium Level 3.9 mmol/L (3.5-5.1) Chloride Level 107 mmol/L (98-107) Carbon Dioxide Level 25 mmol/L (21-32) Anion Gap 7 (6-14) Blood Urea Nitrogen 14 mg/dL (7-20) Creatinine 0.9 mg/dL (0.6-1.0) Estimated GFR (Cockcroft-Gault) 59.9 Glucose Level 222 mg/dL (70-99) Calcium Level 8.0 mg/dL (8.5-10.1) Microbiology 02/21/18 Blood Culture - Preliminary, Resulted NO GROWTH AFTER 3 DAYS Medications Current Medications Vancomycin HCl (Vanco Per Pharmacy) 1 each PRN DAILY PRN MC SEE COMMENTS; Start 02/21/18 at 13:30; Stop 02/21/18 at 17:03; Status DC Sodium Chloride 1,000 ml @ 75 mls/hr [id number] IV Last administered on at 20:14; Start 02/21/18 at 14:00 Atorvastatin Calcium (Lipitor) 10 mg HS PO Last administered on 02/24/18at 21: 56; Start 02/21/18 at 21:00 Ergocalciferol (Vitamin D2) 50,000 unit WEEKLY PO ; Start 02/28/18 at 09:00 Ferrous Sulfate (Feosol) 325 mg BIDWMEALS PO Last administered on 02/25/18 09 :52; Start 02/21/18 at 17:00 Lactobacillus Rhamnosus (Culturelle) 1 cap BID PO Last administered on at 09:53; Start 02/21/18 at 21:00 Ondansetron HCl (Zofran Odt) 4 mg PRN Q8HRS PRN PO NAUSEA; Start 02/21/18 at 14:45; Stop 02/21/18 at 19:15; Status DC Potassium Chloride (Klor-Con) 10 meq DAILY PO Last administered on 02/25/18 09:53; Start 02/21/18 at 15:30 Lisinopril (Prinivil) 10 mg DAILY PO Last administered on 02/25/18 09:54; Start 02/21/18 at 15:30 Fenofibrate (Lofibra) 54 mg DAILY PO Last administered on 02/25/18 09:52; Start 02/22/18 at 09:00 Hydrochlorothiazide (Microzide) 12.5 mg DAILY PO Last administered on 09:54; Start 02/21/18 at 15:30 Linagliptin (Tradjenta) 5 mg DAILY PO Last administered on 02/25/18 09:52; Start 02/21/18 at 15:30 Metformin HCl (Glucophage) 500 mg TIDWMEALS PO Last administered on 02/25/18 09:52; Start 02/21/18 at 17:00 Pantoprazole Sodium (Protonix) 40 mg DAILYAC PO Last administered on 07:32; Start 02/21/18 at 15:30; Stop 02/23/18 at 20:08; Status DC Sucralfate (Carafate) 1 gm BID PO Last administered on 02/25/18 09:53; Start 02/21/18 at 21:00 Amlodipine Besylate (Norvasc) 5 mg DAILY PO Last administered on 02/25/18 09: 53; Start 02/21/18 at 15:30 Ampicillin Sodium/ Sulbactam Sodium 1.5 gm/Sodium Chloride 50 ml @ 100 mls/hr Q6HRS IV ; Start 02/21/18 at 18:00; Stop 02/21/18 at 18:00; Status DC Meropenem 500 mg/ Sodium Chloride 50 ml @ 100 mls/hr Q8HRS IV Last administered on 02/25/18at 06:10; Start 02/21/18 at 17:00 Insulin Human Lispro (HumaLOG) 10 units 1X ONCE SQ Last administered on at 17:27; Start 02/21/18 at 17:00; Stop 02/21/18 at 17:01; Status DC Sodium Chloride 1,000 ml @ 166.667 mls/hr Q6H IV Last administered on at 18:24; Start 02/21/18 at 18:24; Stop 02/21/18 at 19:43; Status DC Dobutamine HCl/ Dextrose 250 ml @ 0 mls/hr CONT PRN IV SEE I/O RECORD; Start 02/21/18 at 18:30; Stop 02/21/18 at 18:35; Status DC Acetaminophen/ Hydrocodone Bitart (Lortab 5/325) 1 tab PRN Q4HRS PRN PO PAIN Last administered on 02/25/18at 09:54; Start 02/21/18 at 19:15 Acetaminophen (Tylenol) 500 mg PRN Q6HRS PRN PO HEADACHE / TEMP Last administered on 02/24/18at 09:07; Start 02/21/18 at 19:15 Ondansetron HCl (Zofran) 4 mg PRN Q6HRS PRN IV NAUSEA/VOMITING; Start at 19:15 Ondansetron HCl (Zofran Odt) 4 mg PRN Q6HRS PRN PO NAUSEA/VOMITING; Start at 19:15 Insulin Human Lispro (HumaLOG) 0-9 UNITS TIDWMEALS SQ Last administered on at 17:33; Start 02/22/18 at 08:00 Dextrose (Dextrose 50%-Water Syringe) 12.5 gm PRN Q15MIN PRN IV SEE COMMENTS; Start 02/21/18 at 19:15 Prochlorperazine Edisylate (Compazine) 5 mg PACU PRN PRN IV NAUSEA, MRX1; Start 02/23/18 at 07:00; Stop 02/24/18 at 06:59; Status DC Hydromorphone HCl (Dilaudid) 0.5 mg PRN Q10MIN PRN IV SEV PAIN, Second choice; Start 02/23/18 at 07:00; Stop 02/24/18 at 06:59; Status DC Lidocaine HCl (Xylocaine-Mpf 1% 2ml Vial) 2 ml PRN 1X PRN ID IV START; Start 02/23/18 at 07:00; Stop 02/24/18 at 06:59; Status DC Ringer's Solution 1,000 ml @ 30 mls/hr Q24H IV ; Start 02/23/18 at 07:00; Stop 02/23/18 at 18:59; Status DC Morphine Sulfate (Morphine Sulfate) 1 mg PRN Q10MIN PRN IV SEVERE PAIN; Start 02/23/18 at 07:00; Stop 02/24/18 at 06:59; Status DC Fentanyl Citrate (Fentanyl 2ml Vial) 50 mcg PRN Q5MIN PRN IV MODERATE TO SEVERE PAIN; Start 02/23/18 at 07:00; Stop 02/24/18 at 06:59; Status DC Fentanyl Citrate (Fentanyl 2ml Vial) 25 mcg PRN Q5MIN PRN IV MILD PAIN; Start 02/23/18 at 07:00; Stop 02/24/18 at 06:59; Status DC Ondansetron HCl (Zofran) 4 mg PRN Q6HRS PRN IV NAUSEA/VOMITING; Start at 07:00; Stop 02/24/18 at 06:59; Status DC Rocuronium [place] (Zemuron) 50 mg STK-MED ONCE .ROUTE ; Start 02/23/18 at 10: 01; Stop 02/23/18 at 10:02; Status DC Fentanyl Citrate (Fentanyl 2ml Vial) 100 mcg STK-MED ONCE .ROUTE ; Start at 10:01; Stop 02/23/18 at 10:02; Status DC Sevoflurane (Ultane) 30 ml STK-MED ONCE IH ; Start 02/23/18 at 10:01; Stop at 10:02; Status DC Propofol 20 ml @ As Directed STK-MED ONCE IV ; Start 02/23/18 at 10:02; Stop 02/23/18 at 10:03; Status DC Phenylephrine HCl (PHENYLEPHRINE in 0.9% NACL PF) 1 mg STK-MED ONCE IV ; Start 02/23/18 at 10:02; Stop 02/23/18 at 10:03; Status DC Dexamethasone Sodium Phosphate (Decadron) 20 mg STK-MED ONCE .ROUTE ; Start at 10:02; Stop 02/23/18 at 10:03; Status DC Ondansetron HCl (Zofran) 4 mg STK-MED ONCE .ROUTE ; Start 02/23/18 at 10:02; Stop 02/23/18 at 10:03; Status DC Sodium Chloride 1,000 ml @ 75 mls/hr [id number] IV Last administered on at 13:10; Start 02/23/18 at 10:30 Bupivacaine HCl/ Epinephrine Bitart (Sensorcain-Mpf Epi 0.5%-1:[id number]) 30 ml STK -MED ONCE .ROUTE ; Start 02/23/18 at 09:46; Stop 02/23/18 at 10:47; Status DC Bupivacaine HCl/ Epinephrine Bitart (Marcaine-Epi 0.5%-1:[id number]) 50 ml STK-MED ONCE .ROUTE ; Start 02/23/18 at 09:48; Stop 02/23/18 at 10:48; Status DC Neostigmine Methylsulfate (Neostigmine Methylsulfate) 5 mg STK-MED ONCE .ROUTE ; Start 02/23/18 at 11:39; Stop 02/23/18 at 11:40; Status DC Glycopyrrolate (Robinul) 1 mg STK-MED ONCE .ROUTE ; Start 02/23/18 at 11:39; Stop 02/23/18 at 11:40; Status DC Lansoprazole (Prevacid) 30 mg DAILYAC PO Last administered on 02/25/18at 09:52 ; Start 02/24/18 at 07:30 Insulin Human Lispro (HumaLOG) 4 units 1X ONCE SQ Last administered on at 21:50; Start 02/23/18 at 21:30; Stop 02/23/18 at 21:31; Status DC Active Scripts Active Vitamin D2 (Ergocalciferol (Vitamin D2)) 50,000 Unit Capsule 50,000 Unit PO WEEKLY 4 Days Tradjenta (Linagliptin) 5 Mg Tablet 5 Mg PO DAILY 30 Days Glucophage (Metformin Hcl) 500 Mg Tablet 500 Mg PO TIDWMEALS 30 Days Culturelle (Lactobacillus Rhamnosus Gg) 1 Each Cap.sprink 1 Cap PO BID 30 Days Reported Zofran Odt (Ondansetron) 4 Mg Tab.rapdis 1 Tab SL PRN Q8HRS PRN Hydrochlorothiazide Tablet (Hydrochlorothiazide) 12.5 Mg Tablet 1 Tab PO DAILY Benazepril Hcl 20 Mg Tablet 0.5 Tab PO DAILY Norvasc (Amlodipine Besylate) 10 Mg Tablet 5 Mg PO DAILY Potassium Chloride 10 Meq Capsule.er 10 Meq PO DAILY Ferrous Sulfate 325 Mg Tablet 325 Mg PO BID Fenofibrate (Fenofibrate Nanocrystallized) 48 Mg Tablet 48 Mg PO DAILY Sucralfate 1 Gm Tablet 1 Tab PO BID Omeprazole 40 Mg Capsule. 1 Cap PO DAILY Atorvastatin Calcium 10 Mg Tablet 10 Mg PO HS Vitals/I & O Vital Sign - Last 24 Hours 02/24/18 02/24/18 02/24/18 02/24/18 15:00 19:00 19:35 22:52 Temp 98.4 98.6 98.9 98.4 98.6 98.9 Pulse 60 79 79 Resp 18 18 18 B/P (MAP) 99/53 (68) 95/45 (62) 97/51 (66) Pulse Ox 94 94 94 O2 Delivery Room Air Room Air Room Air Room Air 02/25/18 02/25/18 02/25/18 02/25/18 03:00 07:00 09:53 09:54 Temp 98.1 97.9 98.1 97.9 Pulse 70 72 72 72 Resp 18 16 B/P (MAP) 101/49 (66) 111/71 (84) 111/71 111/71 Pulse Ox 94 95 O2 Delivery Room Air Room Air 02/25/18 02/25/18 02/25/18 09:54 11:00 11:00 Temp 96.3 96.3 Pulse 82 Resp 16 B/P (MAP) 112/60 (77) Pulse Ox 95 94 94 O2 Delivery Room Air Room Air Room Air Intake and Output 02/24/18 02/24/18 02/25/18 15:00 23:00 07:00 Intake Total 570 ml 1800 ml Output Total 100 ml 50 ml 650 ml Balance 470 ml -50 ml 1150 ml DENNIS GAYLE III DO Feb 25, 2018 13:10
[2018-02-25 15:27] VITALS: BP 129/66
[2018-02-25 19:00] VITALS: BP 95/54
[2018-02-25] MEDS: ATORVASTATIN CALCIUM 10 MG TABLET. PO SCH (21:12)
[2018-02-25 22:47] VITALS: BP 100/61
[2018-02-26 03:00] VITALS: BP 98/65
[2018-02-26 03:33] LABS: BASO % 1 % (0-3); EOS # 0.1 x10^3/uL (0.0-0.7); EOS % 2 % (0-3); HEMATOCRIT 25.8 % (36.0-47.0); HEMOGLOBIN 8.9 g/dL (12.0-15.5); LYMPH # 1.4 x10^3/uL (1.0-4.8); LYMPH % 27 % (24-48); MEAN CORPUSCULAR HEMOGLOBIN 29 pg (25-35); MEAN CORPUSCULAR HGB CONC 34 g/dL (31-37); MEAN CORPUSCULAR VOLUME 85 fL (79-100); MONO # 0.4 x10^3/uL (0.0-1.1); MONO % 7 % (0-9); NEUT # 3.3 x10^3uL (1.8-7.7); NEUT % 63 % (31-73); PLATELET COUNT 288 x10^3/uL (140-400); RED BLOOD COUNT 3.05 x10^6/uL (3.50-5.40); RED CELL DISTRIBUTION WIDTH 13.4 % (11.5-14.5); WHITE BLOOD COUNT 5.2 x10^3/uL (4.0-11.0)
[2018-02-26 04:25] LABS: CALCIUM 8.1 mg/dL (8.5-10.1); CREATININE 0.8 mg/dL (0.6-1.0); GFR 68.7; POTASSIUM 4.2 mmol/L (3.5-5.1)
[2018-02-26] MEDS: IV NORMAL SALINE 1000ML BAG 1,000 ML IV SCH (06:01)
[2018-02-26] MEDS: MEROPENEM 500 MG in IV NORMAL SALINE 50ML 50 ML IV SCH ×3 (06:02→21:58)
[2018-02-26 07:00] VITALS: BP 98/65
[2018-02-26] MEDS: INSULIN LISPRO 300 UNITS/3 ML INSULN.PEN. SQ SCH ×3 (08:00→17:00)
[2018-02-26 10:16] LABS: % BASOS 1 % (0-3); % EOS 1 % (0-5); % LYMPHS 27 % (24-48); % MONOS 11 % (0-10); % SEGS 60 % (35-66); PLT ESTIMATE ADEQUATE (ADEQUATE); POLYCHROMASIA SLIGHT
[2018-02-26 11:00] VITALS: BP 125/65
--- NOTE | 2018-02-26 12:45 | PDOC ---
Infectious Disease Note Subjective Subjective Wants ice cream No fevers Vital Sign Vital Signs Vital Signs Date Time Temp Pulse Resp B/P (MAP) Pulse Ox O2 Delivery O2 Flow Rate FiO2 02/26/18 11:00 98.6 70 1 125/65 (85) 93 Room Air 98.6 Physical Exam PHYSICAL EXAM GENERAL: Propped up in bed, alert, eating LUNGS: Clear. HEART: S1, S2 regular. ABDOMEN: Soft, NT SKIN: w/o rash. Multiple wounds. Right ischial wound wound vac in place. EXTREMITIES: No edema or cyanosis FEED CRUSHER: Alert, follows simple commands PIV Labs Lab Laboratory Tests Test 02/25/18 16:10 02/25/18 21:02 02/26/18 03:05 02/26/18 07:13 Glucose (Fingerstick) 243 mg/dL (70-99) 140 mg/dL (70-99) 123 mg/dL (70-99) White Blood Count 5.2 x10^3/uL (4.0-11.0) Red Blood Count 3.05 x10^6/uL (3.50-5.40) Hemoglobin 8.9 g/dL (12.0-15.5) Hematocrit 25.8 % (36.0-47.0) Mean Corpuscular Volume 85 fL (79-100) Mean Corpuscular Hemoglobin 29 pg (25-35) Mean Corpuscular Hemoglobin Concent 34 g/dL (31-37) Red Cell Distribution Width 13.4 % (11.5-14.5) Platelet Count 288 x10^3/uL (140-400) Neutrophils (%) (Auto) 63 % (31-73) Lymphocytes (%) (Auto) 27 % (24-48) Monocytes (%) (Auto) 7 % (0-9) Eosinophils (%) (Auto) 2 % (0-3) Basophils (%) (Auto) 1 % (0-3) Neutrophils # (Auto) 3.3 x10^3uL (1.8-7.7) Lymphocytes # (Auto) 1.4 x10^3/uL (1.0-4.8) Monocytes # (Auto) 0.4 x10^3/uL (0.0-1.1) Eosinophils # (Auto) 0.1 x10^3/uL (0.0-0.7) Basophils # (Auto) 0.0 x10^3/uL (0.0-0.2) Segmented Neutrophils % 60 % (35-66) Lymphocytes % 27 % (24-48) Monocytes % 11 % (0-10) Eosinophils % 1 % (0-5) Basophils % 1 % (0-3) Platelet Estimate Adequate (ADEQUATE) Polychromasia Slight Sodium Level 145 mmol/L (136-145) Potassium Level 4.2 mmol/L (3.5-5.1) Chloride Level 110 mmol/L (98-107) Carbon Dioxide Level 28 mmol/L (21-32) Anion Gap 7 (6-14) Blood Urea Nitrogen 13 mg/dL (7-20) Creatinine 0.8 mg/dL (0.6-1.0) Estimated GFR (Cockcroft-Gault) 68.7 Glucose Level 129 mg/dL (70-99) Calcium Level 8.1 mg/dL (8.5-10.1) Test 02/26/18 11:02 Glucose (Fingerstick) 178 mg/dL (70-99) Micro Microbiology 02/21/18 Blood Culture - Preliminary, Resulted NO GROWTH AFTER 4 DAYS Objective Assessment Right ischial wound s/p excisional debridement 02/23 , not to the bone per operative report Right and left hip wound Dementia Wheelchair bound Anemia Plan Plan of Care Continue meropenem upon discharge change to empiric doxycycline and cipro for 2 weeks Probiotics Monitor labs Wound care Supportive care D/W RN Patient seen and examined. Chart reviewed in detail. Case discussed with CLINICAL PSYCHOLOGY TEACHER. Agree with above A/P. FLAVIO WADDELL APRN Feb 26, 2018 12:45 REY MAYER MD Feb 26, 2018 14:25
--- NOTE | 2018-02-26 13:07 | PDOC ---
PROGRESS NOTES Chief Complaint Chief Complaint Rt ischial wound s/p i and D 02/23 with wound vac Rt and left hip wound Dementia severe Wheelchair bound from assisted living facility HTN ADRIENNE ,vasomotor CKD3 Lactic acidosis H/o GERD H/o DM H/o osteoporosis H/o hyperlipidemia plan: fu with id, on meropenum, on wound vac, wound cx pending. bcx neg dc ivf on amlodipine, dc lisinopril given lower side bp wound care SW need SNF or LTAC History of Present Illness History of Present Illness Pt seen and examined while asleep in bed Pt appeared to be in NAD ROS: no fever, chills, sob or chest pain very demented, only says" i want icecream" not answer question or follow commands Vitals Vitals Vital Signs Date Time Temp Pulse Resp B/P (MAP) Pulse Ox O2 Delivery O2 Flow Rate FiO2 02/26/18 11:00 98.6 70 1 125/65 (85) 93 Room Air 98.6 Physical Exam Physical Exam GENERAL: Propped up in bed, alert, eating , NOT answer questions for follow commands LUNGS: Clear. HEART: S1, S2 regular. ABDOMEN: Soft, NT SKIN: w/o rash. Multiple wounds. Right ischial wound wound vac in place. EXTREMITIES: No edema or cyanosis MANAGEMENT TECH: Alert, follows simple commands PIV General: No acute distress, Other (Pt was asleep but appeared to be in NAD) Heart: Regular rate, Normal S1, Normal S2 Lungs: Clear Abdomen: Normal bowel sounds, Soft Extremities: Other (atrophied muscles) Skin: Other (wound vac in place) Labs LABS Laboratory Tests Test 02/25/18 16:10 02/25/18 21:02 02/26/18 03:05 02/26/18 07:13 Glucose (Fingerstick) 243 mg/dL (70-99) 140 mg/dL (70-99) 123 mg/dL (70-99) White Blood Count 5.2 x10^3/uL (4.0-11.0) Red Blood Count 3.05 x10^6/uL (3.50-5.40) Hemoglobin 8.9 g/dL (12.0-15.5) Hematocrit 25.8 % (36.0-47.0) Mean Corpuscular Volume 85 fL (79-100) Mean Corpuscular Hemoglobin 29 pg (25-35) Mean Corpuscular Hemoglobin Concent 34 g/dL (31-37) Red Cell Distribution Width 13.4 % (11.5-14.5) Platelet Count 288 x10^3/uL (140-400) Neutrophils (%) (Auto) 63 % (31-73) Lymphocytes (%) (Auto) 27 % (24-48) Monocytes (%) (Auto) 7 % (0-9) Eosinophils (%) (Auto) 2 % (0-3) Basophils (%) (Auto) 1 % (0-3) Neutrophils # (Auto) 3.3 x10^3uL (1.8-7.7) Lymphocytes # (Auto) 1.4 x10^3/uL (1.0-4.8) Monocytes # (Auto) 0.4 x10^3/uL (0.0-1.1) Eosinophils # (Auto) 0.1 x10^3/uL (0.0-0.7) Basophils # (Auto) 0.0 x10^3/uL (0.0-0.2) Segmented Neutrophils % 60 % (35-66) Lymphocytes % 27 % (24-48) Monocytes % 11 % (0-10) Eosinophils % 1 % (0-5) Basophils % 1 % (0-3) Platelet Estimate Adequate (ADEQUATE) Polychromasia Slight Sodium Level 145 mmol/L (136-145) Potassium Level 4.2 mmol/L (3.5-5.1) Chloride Level 110 mmol/L (98-107) Carbon Dioxide Level 28 mmol/L (21-32) Anion Gap 7 (6-14) Blood Urea Nitrogen 13 mg/dL (7-20) Creatinine 0.8 mg/dL (0.6-1.0) Estimated GFR (Cockcroft-Gault) 68.7 Glucose Level 129 mg/dL (70-99) Calcium Level 8.1 mg/dL (8.5-10.1) Test 02/26/18 11:02 Glucose (Fingerstick) 178 mg/dL (70-99) Comment Review of Relevant I have reviewed the following items scott (where applicable) has been applied. Labs Laboratory Tests Test 02/24/18 16:56 02/24/18 20:56 02/25/18 08:39 02/25/18 11:52 Glucose (Fingerstick) 167 mg/dL (70-99) 116 mg/dL (70-99) 110 mg/dL (70-99) 189 mg/dL (70-99) Test 02/25/18 12:20 02/25/18 16:10 02/25/18 21:02 02/26/18 03:05 White Blood Count 6.5 x10^3/uL (4.0-11.0) 5.2 x10^3/uL (4.0-11.0) Red Blood Count 3.27 x10^6/uL (3.50-5.40) 3.05 x10^6/uL (3.50-5.40) Hemoglobin 9.4 g/dL (12.0-15.5) 8.9 g/dL (12.0-15.5) Hematocrit 27.7 % (36.0-47.0) 25.8 % (36.0-47.0) Mean Corpuscular Volume 85 fL (79-100) 85 fL (79-100) Mean Corpuscular Hemoglobin 29 pg (25-35) 29 pg (25-35) Mean Corpuscular Hemoglobin Concent 34 g/dL (31-37) 34 g/dL (31-37) Red Cell Distribution Width 13.3 % (11.5-14.5) 13.4 % (11.5-14.5) Platelet Count 292 x10^3/uL (140-400) 288 x10^3/uL (140-400) Neutrophils (%) (Auto) 74 % (31-73) 63 % (31-73) Lymphocytes (%) (Auto) 18 % (24-48) 27 % (24-48) Monocytes (%) (Auto) 6 % (0-9) 7 % (0-9) Eosinophils (%) (Auto) 1 % (0-3) 2 % (0-3) Basophils (%) (Auto) 0 % (0-3) 1 % (0-3) Neutrophils # (Auto) 4.8 x10^3uL (1.8-7.7) 3.3 x10^3uL (1.8-7.7) Lymphocytes # (Auto) 1.2 x10^3/uL (1.0-4.8) 1.4 x10^3/uL (1.0-4.8) Monocytes # (Auto) 0.4 x10^3/uL (0.0-1.1) 0.4 x10^3/uL (0.0-1.1) Eosinophils # (Auto) 0.1 x10^3/uL (0.0-0.7) 0.1 x10^3/uL (0.0-0.7) Basophils # (Auto) 0.0 x10^3/uL (0.0-0.2) 0.0 x10^3/uL (0.0-0.2) Sodium Level 139 mmol/L (136-145) 145 mmol/L (136-145) Potassium Level 3.9 mmol/L (3.5-5.1) 4.2 mmol/L (3.5-5.1) Chloride Level 107 mmol/L (98-107) 110 mmol/L (98-107) Carbon Dioxide Level 25 mmol/L (21-32) 28 mmol/L (21-32) Anion Gap 7 (6-14) 7 (6-14) Blood Urea Nitrogen 14 mg/dL (7-20) 13 mg/dL (7-20) Creatinine 0.9 mg/dL (0.6-1.0) 0.8 mg/dL (0.6-1.0) Estimated GFR (Cockcroft-Gault) 59.9 68.7 Glucose Level 222 mg/dL (70-99) 129 mg/dL (70-99) Calcium Level 8.0 mg/dL (8.5-10.1) 8.1 mg/dL (8.5-10.1) Glucose (Fingerstick) 243 mg/dL (70-99) 140 mg/dL (70-99) Segmented Neutrophils % 60 % (35-66) Lymphocytes % 27 % (24-48) Monocytes % 11 % (0-10) Eosinophils % 1 % (0-5) Basophils % 1 % (0-3) Platelet Estimate Adequate (ADEQUATE) Polychromasia Slight Test 02/26/18 07:13 02/26/18 11:02 Glucose (Fingerstick) 123 mg/dL (70-99) 178 mg/dL (70-99) Laboratory Tests Test 02/25/18 16:10 02/25/18 21:02 02/26/18 03:05 02/26/18 07:13 Glucose (Fingerstick) 243 mg/dL (70-99) 140 mg/dL (70-99) 123 mg/dL (70-99) White Blood Count 5.2 x10^3/uL (4.0-11.0) Red Blood Count 3.05 x10^6/uL (3.50-5.40) Hemoglobin 8.9 g/dL (12.0-15.5) Hematocrit 25.8 % (36.0-47.0) Mean Corpuscular Volume 85 fL (79-100) Mean Corpuscular Hemoglobin 29 pg (25-35) Mean Corpuscular Hemoglobin Concent 34 g/dL (31-37) Red Cell Distribution Width 13.4 % (11.5-14.5) Platelet Count 288 x10^3/uL (140-400) Neutrophils (%) (Auto) 63 % (31-73) Lymphocytes (%) (Auto) 27 % (24-48) Monocytes (%) (Auto) 7 % (0-9) Eosinophils (%) (Auto) 2 % (0-3) Basophils (%) (Auto) 1 % (0-3) Neutrophils # (Auto) 3.3 x10^3uL (1.8-7.7) Lymphocytes # (Auto) 1.4 x10^3/uL (1.0-4.8) Monocytes # (Auto) 0.4 x10^3/uL (0.0-1.1) Eosinophils # (Auto) 0.1 x10^3/uL (0.0-0.7) Basophils # (Auto) 0.0 x10^3/uL (0.0-0.2) Segmented Neutrophils % 60 % (35-66) Lymphocytes % 27 % (24-48) Monocytes % 11 % (0-10) Eosinophils % 1 % (0-5) Basophils % 1 % (0-3) Platelet Estimate Adequate (ADEQUATE) Polychromasia Slight Sodium Level 145 mmol/L (136-145) Potassium Level 4.2 mmol/L (3.5-5.1) Chloride Level 110 mmol/L (98-107) Carbon Dioxide Level 28 mmol/L (21-32) Anion Gap 7 (6-14) Blood Urea Nitrogen 13 mg/dL (7-20) Creatinine 0.8 mg/dL (0.6-1.0) Estimated GFR (Cockcroft-Gault) 68.7 Glucose Level 129 mg/dL (70-99) Calcium Level 8.1 mg/dL (8.5-10.1) Test 02/26/18 11:02 Glucose (Fingerstick) 178 mg/dL (70-99) Microbiology 02/21/18 Blood Culture - Preliminary, Resulted NO GROWTH AFTER 4 DAYS Medications Current Medications Vancomycin HCl (Vanco Per Pharmacy) 1 each PRN DAILY PRN MC SEE COMMENTS; Start 02/21/18 at 13:30; Stop 02/21/18 at 17:03; Status DC Sodium Chloride 1,000 ml @ 75 mls/hr [id number] IV Last administered on at 06:01; Start 02/21/18 at 14:00 Atorvastatin Calcium (Lipitor) 10 mg HS PO Last administered on 02/25/18at 21: 12; Start 02/21/18 at 21:00 Ergocalciferol (Vitamin D2) 50,000 unit WEEKLY PO ; Start 02/28/18 at 09:00 Ferrous Sulfate (Feosol) 325 mg BIDWMEALS PO Last administered on 02/25/18at 17 :34; Start 02/21/18 at 17:00 Lactobacillus Rhamnosus (Culturelle) 1 cap BID PO Last administered on at 21:12; Start 02/21/18 at 21:00 Ondansetron HCl (Zofran Odt) 4 mg PRN Q8HRS PRN PO NAUSEA; Start 02/21/18 at 14:45; Stop 02/21/18 at 19:15; Status DC Potassium Chloride (Klor-Con) 10 meq DAILY PO Last administered on 02/25/18at 09:53; Start 02/21/18 at 15:30 Lisinopril (Prinivil) 10 mg DAILY PO Last administered on 02/25/18at 09:54; Start 02/21/18 at 15:30 Fenofibrate (Lofibra) 54 mg DAILY PO Last administered on 02/25/18at 09:52; Start 02/22/18 at 09:00 Hydrochlorothiazide (Microzide) 12.5 mg DAILY PO Last administered on 09:54; Start 02/21/18 at 15:30 Linagliptin (Tradjenta) 5 mg DAILY PO Last administered on 02/25/18 09:52; Start 02/21/18 at 15:30 Metformin HCl (Glucophage) 500 mg TIDWMEALS PO Last administered on 02/25/18at 17:34; Start 02/21/18 at 17:00 Pantoprazole Sodium (Protonix) 40 mg DAILYAC PO Last administered on at 07:32; Start 02/21/18 at 15:30; Stop 02/23/18 at 20:08; Status DC Sucralfate (Carafate) 1 gm BID PO Last administered on 02/25/18at 21:12; Start 02/21/18 at 21:00 Amlodipine Besylate (Norvasc) 5 mg DAILY PO Last administered on 02/25/18at 09: 53; Start 02/21/18 at 15:30 Ampicillin Sodium/ Sulbactam Sodium 1.5 gm/Sodium Chloride 50 ml @ 100 mls/hr Q6HRS IV ; Start 02/21/18 at 18:00; Stop 02/21/18 at 18:00; Status DC Meropenem 500 mg/ Sodium Chloride 50 ml @ 100 mls/hr Q8HRS IV Last administered on 02/26/18at 06:02; Start 02/21/18 at 17:00 Insulin Human Lispro (HumaLOG) 10 units 1X ONCE SQ Last administered on at 17:27; Start 02/21/18 at 17:00; Stop 02/21/18 at 17:01; Status DC Sodium Chloride 1,000 ml @ 166.667 mls/hr Q6H IV Last administered on at 18:24; Start 02/21/18 at 18:24; Stop 02/21/18 at 19:43; Status DC Dobutamine HCl/ Dextrose 250 ml @ 0 mls/hr CONT PRN IV SEE I/O RECORD; Start 02/21/18 at 18:30; Stop 02/21/18 at 18:35; Status DC Acetaminophen/ Hydrocodone Bitart (Lortab 5/325) 1 tab PRN Q4HRS PRN PO PAIN Last administered on 02/25/18at 09:54; Start 02/21/18 at 19:15 Acetaminophen (Tylenol) 500 mg PRN Q6HRS PRN PO HEADACHE / TEMP Last administered on 02/24/18at 09:07; Start 02/21/18 at 19:15 Ondansetron HCl (Zofran) 4 mg PRN Q6HRS PRN IV NAUSEA/VOMITING; Start at 19:15 Ondansetron HCl (Zofran Odt) 4 mg PRN Q6HRS PRN PO NAUSEA/VOMITING; Start at 19:15 Insulin Human Lispro (HumaLOG) 0-9 UNITS TIDWMEALS SQ Last administered on at 17:48; Start 02/22/18 at 08:00 Dextrose (Dextrose 50%-Water Syringe) 12.5 gm PRN Q15MIN PRN IV SEE COMMENTS; Start 02/21/18 at 19:15 Prochlorperazine Edisylate (Compazine) 5 mg PACU PRN PRN IV NAUSEA, MRX1; Start 02/23/18 at 07:00; Stop 02/24/18 at 06:59; Status DC Hydromorphone HCl (Dilaudid) 0.5 mg PRN Q10MIN PRN IV SEV PAIN, Second choice; Start 02/23/18 at 07:00; Stop 02/24/18 at 06:59; Status DC Lidocaine HCl (Xylocaine-Mpf 1% 2ml Vial) 2 ml PRN 1X PRN ID IV START; Start 02/23/18 at 07:00; Stop 02/24/18 at 06:59; Status DC Ringer's Solution 1,000 ml @ 30 mls/hr Q24H IV ; Start 02/23/18 at 07:00; Stop 02/23/18 at 18:59; Status DC Morphine Sulfate (Morphine Sulfate) 1 mg PRN Q10MIN PRN IV SEVERE PAIN; Start 02/23/18 at 07:00; Stop 02/24/18 at 06:59; Status DC Fentanyl Citrate (Fentanyl 2ml Vial) 50 mcg PRN Q5MIN PRN IV MODERATE TO SEVERE PAIN; Start 02/23/18 at 07:00; Stop 02/24/18 at 06:59; Status DC Fentanyl Citrate (Fentanyl 2ml Vial) 25 mcg PRN Q5MIN PRN IV MILD PAIN; Start 02/23/18 at 07:00; Stop 02/24/18 at 06:59; Status DC Ondansetron HCl (Zofran) 4 mg PRN Q6HRS PRN IV NAUSEA/VOMITING; Start at 07:00; Stop 02/24/18 at 06:59; Status DC Rocuronium [place] (Zemuron) 50 mg STK-MED ONCE .ROUTE ; Start 02/23/18 at 10: 01; Stop 02/23/18 at 10:02; Status DC Fentanyl Citrate (Fentanyl 2ml Vial) 100 mcg STK-MED ONCE .ROUTE ; Start at 10:01; Stop 02/23/18 at 10:02; Status DC Sevoflurane (Ultane) 30 ml STK-MED ONCE IH ; Start 02/23/18 at 10:01; Stop at 10:02; Status DC Propofol 20 ml @ As Directed STK-MED ONCE IV ; Start 02/23/18 at 10:02; Stop 02/23/18 at 10:03; Status DC Phenylephrine HCl (PHENYLEPHRINE in 0.9% NACL PF) 1 mg STK-MED ONCE IV ; Start 02/23/18 at 10:02; Stop 02/23/18 at 10:03; Status DC Dexamethasone Sodium Phosphate (Decadron) 20 mg STK-MED ONCE .ROUTE ; Start at 10:02; Stop 02/23/18 at 10:03; Status DC Ondansetron HCl (Zofran) 4 mg STK-MED ONCE .ROUTE ; Start 02/23/18 at 10:02; Stop 02/23/18 at 10:03; Status DC Sodium Chloride 1,000 ml @ 75 mls/hr [id number] IV Last administered on at 15:50; Start 02/23/18 at 10:30 Bupivacaine HCl/ Epinephrine Bitart (Sensorcain-Mpf Epi 0.5%-1:[id number]) 30 ml STK -MED ONCE .ROUTE ; Start 02/23/18 at 09:46; Stop 02/23/18 at 10:47; Status DC Bupivacaine HCl/ Epinephrine Bitart (Marcaine-Epi 0.5%-1:[id number]) 50 ml STK-MED ONCE .ROUTE ; Start 02/23/18 at 09:48; Stop 02/23/18 at 10:48; Status DC Neostigmine Methylsulfate (Neostigmine Methylsulfate) 5 mg STK-MED ONCE .ROUTE ; Start 02/23/18 at 11:39; Stop 02/23/18 at 11:40; Status DC Glycopyrrolate (Robinul) 1 mg STK-MED ONCE .ROUTE ; Start 02/23/18 at 11:39; Stop 02/23/18 at 11:40; Status DC Lansoprazole (Prevacid) 30 mg DAILYAC PO Last administered on 02/25/18at 09:52 ; Start 02/24/18 at 07:30 Insulin Human Lispro (HumaLOG) 4 units 1X ONCE SQ Last administered on at 21:50; Start 02/23/18 at 21:30; Stop 02/23/18 at 21:31; Status DC Active Scripts Active Vitamin D2 (Ergocalciferol (Vitamin D2)) 50,000 Unit Capsule 50,000 Unit PO WEEKLY 4 Days Tradjenta (Linagliptin) 5 Mg Tablet 5 Mg PO DAILY 30 Days Glucophage (Metformin Hcl) 500 Mg Tablet 500 Mg PO TIDWMEALS 30 Days Culturelle (Lactobacillus Rhamnosus Gg) 1 Each Cap.sprink 1 Cap PO BID 30 Days Reported Zofran Odt (Ondansetron) 4 Mg Tab.rapdis 1 Tab SL PRN Q8HRS PRN Hydrochlorothiazide Tablet (Hydrochlorothiazide) 12.5 Mg Tablet 1 Tab PO DAILY Benazepril Hcl 20 Mg Tablet 0.5 Tab PO DAILY Norvasc (Amlodipine Besylate) 10 Mg Tablet 5 Mg PO DAILY Potassium Chloride 10 Meq Capsule.er 10 Meq PO DAILY Ferrous Sulfate 325 Mg Tablet 325 Mg PO BID Fenofibrate (Fenofibrate Nanocrystallized) 48 Mg Tablet 48 Mg PO DAILY Sucralfate 1 Gm Tablet 1 Tab PO BID Omeprazole 40 Mg Capsule.dr 1 Cap PO DAILY Atorvastatin Calcium 10 Mg Tablet 10 Mg PO HS Vitals/I & O Vital Sign - Last 24 Hours 02/25/18 02/25/18 02/25/18 02/25/18 15:27 19:00 19:50 22:47 Temp 98.7 98.8 98.9 98.7 98.8 98.9 Pulse 81 69 71 Resp 18 14 14 B/P (MAP) 129/66 (87) 95/54 (68) 100/61 (74) Pulse Ox 94 97 97 O2 Delivery Room Air Room Air Room Air Room Air 02/26/18 02/26/18 02/26/18 03:00 07:00 11:00 Temp 98.8 98.8 98.6 98.8 98.8 98.6 Pulse 70 70 70 Resp 14 14 1 B/P (MAP) 98/65 (76) 98/65 (76) 125/65 (85) Pulse Ox 97 97 93 O2 Delivery Room Air Room Air Room Air Intake and Output 02/25/18 02/25/18 02/26/18 15:00 23:00 07:00 Intake Total 100 ml 1800 ml Output Total 150 ml 950 ml Balance -50 ml 850 ml Nutrition Consultation Dietary Evaluation: Comments: continue with diet as ordered REC mvi, vit c per wound protocal Expected Outcomes/Goals: to meet > 75% est nutr needs improved wound status Malnutrition Findings: Body Fat Depletion (Non Severe: Mod to Severe Weight Status: Underweight NATHANIEL CRENHSAW MD Feb 26, 2018 13:07
[2018-02-26] MEDS: metFORMIN 500 MG TABLET PO SCH ×3 (14:12→17:00)
[2018-02-26] MEDS: LACTOBACILLUS RHAMNOSUS GG 1 CAPSULE. PO SCH ×2 (14:12→21:58)
[2018-02-26] MEDS: POTASSIUM CHLORIDE 10 MEQ TABLET.ER. PO SCH (14:13)
[2018-02-26] MEDS: LINAGLIPTIN 5 MG TABLET PO SCH (14:14)
[2018-02-26] MEDS: hydroCHLOROthiazide 12.5 MG CAPSULE PO SCH (14:14)
[2018-02-26] MEDS: SUCRALFATE 1 GM TABLET. PO SCH ×2 (14:14→21:58)
[2018-02-26] MEDS: amLODIPine BESYLATE 5 MG TABLET PO SCH (14:14)
[2018-02-26] MEDS: FERROUS SULFATE 325 MG TABLET. PO SCH ×2 (14:15→17:00)
[2018-02-26] MEDS: FENOFIBRATE 54 MG TABLET. PO SCH (14:17)
[2018-02-26 15:00] VITALS: BP 116/54
[2018-02-26 19:00] VITALS: BP 119/50
[2018-02-26] MEDS: ATORVASTATIN CALCIUM 10 MG TABLET. PO SCH (21:58)
[2018-02-26 23:00] VITALS: BP 103/53
[2018-02-27 03:00] VITALS: BP 138/67
[2018-02-27 05:18] LABS: BASO % 0 % (0-3); EOS # 0.1 x10^3/uL (0.0-0.7); EOS % 1 % (0-3); HEMATOCRIT 27.2 % (36.0-47.0); HEMOGLOBIN 9.2 g/dL (12.0-15.5); LYMPH # 1.2 x10^3/uL (1.0-4.8); LYMPH % 19 % (24-48); MEAN CORPUSCULAR HEMOGLOBIN 29 pg (25-35); MEAN CORPUSCULAR HGB CONC 34 g/dL (31-37); MEAN CORPUSCULAR VOLUME 85 fL (79-100); MONO # 0.5 x10^3/uL (0.0-1.1); MONO % 8 % (0-9); NEUT # 4.5 x10^3uL (1.8-7.7); NEUT % 72 % (31-73); PLATELET COUNT 313 x10^3/uL (140-400); RED BLOOD COUNT 3.21 x10^6/uL (3.50-5.40); RED CELL DISTRIBUTION WIDTH 13.3 % (11.5-14.5); WHITE BLOOD COUNT 6.3 x10^3/uL (4.0-11.0)
[2018-02-27] MEDS: MEROPENEM 500 MG in IV NORMAL SALINE 50ML 50 ML IV SCH ×3 (05:29→21:51)
[2018-02-27 06:35] LABS: CALCIUM 8.3 mg/dL (8.5-10.1); CREATININE 0.8 mg/dL (0.6-1.0); GFR 68.7; POTASSIUM 4.4 mmol/L (3.5-5.1)
[2018-02-27 07:00] VITALS: BP 139/98
[2018-02-27] MEDS: INSULIN LISPRO 300 UNITS/3 ML INSULN.PEN. SQ SCH ×3 (08:00→17:00)
[2018-02-27] MEDS: hydroCHLOROthiazide 12.5 MG CAPSULE PO SCH (08:39)
[2018-02-27] MEDS: FERROUS SULFATE 325 MG TABLET. PO SCH ×2 (08:39→17:40)
[2018-02-27] MEDS: metFORMIN 500 MG TABLET PO SCH ×3 (08:39→17:40)
[2018-02-27] MEDS: POTASSIUM CHLORIDE 10 MEQ TABLET.ER. PO SCH (08:40)
[2018-02-27] MEDS: amLODIPine BESYLATE 5 MG TABLET PO SCH (08:40)
[2018-02-27] MEDS: LINAGLIPTIN 5 MG TABLET PO SCH (08:40)
[2018-02-27] MEDS: LACTOBACILLUS RHAMNOSUS GG 1 CAPSULE. PO SCH ×2 (08:40→21:51)
[2018-02-27] MEDS: LANSOPRAZOLE 30 MG TAB.RAP.DR PO SCH (08:40)
[2018-02-27] MEDS: FENOFIBRATE 54 MG TABLET. PO SCH (08:40)
[2018-02-27] MEDS: SUCRALFATE 1 GM TABLET. PO SCH ×2 (08:41→21:51)
[2018-02-27 11:00] VITALS: BP 140/88
--- NOTE | 2018-02-27 12:09 | PDOC ---
PROGRESS NOTES Chief Complaint Chief Complaint Rt ischial wound s/p i and D 02/23 with wound vac Rt and left hip wound Dementia severe Wheelchair bound from assisted living facility HTN ADRIENNE ,vasomotor CKD3 Lactic acidosis H/o GERD H/o DM H/o osteoporosis H/o hyperlipidemia plan: fu with id, on meropenum, on wound vac, wound cx pending. bcx neg dc ivf on amlodipine, dc lisinopril given lower side bp wound care SW need SNF or LTAC, but as per sw notes, will dc back to assisted living facility with higher level care. History of Present Illness History of Present Illness Pt seen and examined while asleep in bed Pt appeared to be in NAD ROS: no fever, chills, sob or chest pain had a big loose BM very demented, only says" i want ice cream" not answer question or follow commands Vitals Vitals Vital Signs Date Time Temp Pulse Resp B/P (MAP) Pulse Ox O2 Delivery O2 Flow Rate FiO2 02/27/18 08:40 82 139/98 02/27/18 07:05 Room Air 02/27/18 07:00 98.5 16 95 98.5 Physical Exam Physical Exam GENERAL: Propped up in bed, alert, eating , NOT answer questions for follow commands LUNGS: Clear. HEART: S1, S2 regular. ABDOMEN: Soft, NT SKIN: w/o rash. Multiple wounds. Right ischial wound wound vac in place. 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, follows simple commands PIV General: No acute distress, Other (Pt was asleep but appeared to be in NAD) Heart: Regular rate, Normal S1, Normal S2 Lungs: Clear Abdomen: Normal bowel sounds, Soft Extremities: Other (atrophied muscles) Skin: Other (wound vac in place) Labs LABS Laboratory Tests Test 02/26/18 16:05 02/26/18 20:49 02/27/18 03:05 02/27/18 07:29 Glucose (Fingerstick) 179 mg/dL (70-99) 138 mg/dL (70-99) 148 mg/dL (70-99) White Blood Count 6.3 x10^3/uL (4.0-11.0) Red Blood Count 3.21 x10^6/uL (3.50-5.40) Hemoglobin 9.2 g/dL (12.0-15.5) Hematocrit 27.2 % (36.0-47.0) Mean Corpuscular Volume 85 fL (79-100) Mean Corpuscular Hemoglobin 29 pg (25-35) Mean Corpuscular Hemoglobin Concent 34 g/dL (31-37) Red Cell Distribution Width 13.3 % (11.5-14.5) Platelet Count 313 x10^3/uL (140-400) Neutrophils (%) (Auto) 72 % (31-73) Lymphocytes (%) (Auto) 19 % (24-48) Monocytes (%) (Auto) 8 % (0-9) Eosinophils (%) (Auto) 1 % (0-3) Basophils (%) (Auto) 0 % (0-3) Neutrophils # (Auto) 4.5 x10^3uL (1.8-7.7) Lymphocytes # (Auto) 1.2 x10^3/uL (1.0-4.8) Monocytes # (Auto) 0.5 x10^3/uL (0.0-1.1) Eosinophils # (Auto) 0.1 x10^3/uL (0.0-0.7) Basophils # (Auto) 0.0 x10^3/uL (0.0-0.2) Sodium Level 143 mmol/L (136-145) Potassium Level 4.4 mmol/L (3.5-5.1) Chloride Level 108 mmol/L (98-107) Carbon Dioxide Level 28 mmol/L (21-32) Anion Gap 7 (6-14) Blood Urea Nitrogen 13 mg/dL (7-20) Creatinine 0.8 mg/dL (0.6-1.0) Estimated GFR (Cockcroft-Gault) 68.7 Glucose Level 118 mg/dL (70-99) Calcium Level 8.3 mg/dL (8.5-10.1) Comment Review of Relevant I have reviewed the following items scott (where applicable) has been applied. Labs Laboratory Tests Test 02/25/18 12:20 02/25/18 16:10 02/25/18 21:02 02/26/18 03:05 White Blood Count 6.5 x10^3/uL (4.0-11.0) 5.2 x10^3/uL (4.0-11.0) Red Blood Count 3.27 x10^6/uL (3.50-5.40) 3.05 x10^6/uL (3.50-5.40) Hemoglobin 9.4 g/dL (12.0-15.5) 8.9 g/dL (12.0-15.5) Hematocrit 27.7 % (36.0-47.0) 25.8 % (36.0-47.0) Mean Corpuscular Volume 85 fL (79-100) 85 fL (79-100) Mean Corpuscular Hemoglobin 29 pg (25-35) 29 pg (25-35) Mean Corpuscular Hemoglobin Concent 34 g/dL (31-37) 34 g/dL (31-37) Red Cell Distribution Width 13.3 % (11.5-14.5) 13.4 % (11.5-14.5) Platelet Count 292 x10^3/uL (140-400) 288 x10^3/uL (140-400) Neutrophils (%) (Auto) 74 % (31-73) 63 % (31-73) Lymphocytes (%) (Auto) 18 % (24-48) 27 % (24-48) Monocytes (%) (Auto) 6 % (0-9) 7 % (0-9) Eosinophils (%) (Auto) 1 % (0-3) 2 % (0-3) Basophils (%) (Auto) 0 % (0-3) 1 % (0-3) Neutrophils # (Auto) 4.8 x10^3uL (1.8-7.7) 3.3 x10^3uL (1.8-7.7) Lymphocytes # (Auto) 1.2 x10^3/uL (1.0-4.8) 1.4 x10^3/uL (1.0-4.8) Monocytes # (Auto) 0.4 x10^3/uL (0.0-1.1) 0.4 x10^3/uL (0.0-1.1) Eosinophils # (Auto) 0.1 x10^3/uL (0.0-0.7) 0.1 x10^3/uL (0.0-0.7) Basophils # (Auto) 0.0 x10^3/uL (0.0-0.2) 0.0 x10^3/uL (0.0-0.2) Sodium Level 139 mmol/L (136-145) 145 mmol/L (136-145) Potassium Level 3.9 mmol/L (3.5-5.1) 4.2 mmol/L (3.5-5.1) Chloride Level 107 mmol/L (98-107) 110 mmol/L (98-107) Carbon Dioxide Level 25 mmol/L (21-32) 28 mmol/L (21-32) Anion Gap 7 (6-14) 7 (6-14) Blood Urea Nitrogen 14 mg/dL (7-20) 13 mg/dL (7-20) Creatinine 0.9 mg/dL (0.6-1.0) 0.8 mg/dL (0.6-1.0) Estimated GFR (Cockcroft-Gault) 59.9 68.7 Glucose Level 222 mg/dL (70-99) 129 mg/dL (70-99) Calcium Level 8.0 mg/dL (8.5-10.1) 8.1 mg/dL (8.5-10.1) Glucose (Fingerstick) 243 mg/dL (70-99) 140 mg/dL (70-99) Segmented Neutrophils % 60 % (35-66) Lymphocytes % 27 % (24-48) Monocytes % 11 % (0-10) Eosinophils % 1 % (0-5) Basophils % 1 % (0-3) Platelet Estimate Adequate (ADEQUATE) Polychromasia Slight Test 02/26/18 07:13 02/26/18 11:02 02/26/18 16:05 02/26/18 20:49 Glucose (Fingerstick) 123 mg/dL (70-99) 178 mg/dL (70-99) 179 mg/dL (70-99) 138 mg/dL (70-99) Test 02/27/18 03:05 02/27/18 07:29 White Blood Count 6.3 x10^3/uL (4.0-11.0) Red Blood Count 3.21 x10^6/uL (3.50-5.40) Hemoglobin 9.2 g/dL (12.0-15.5) Hematocrit 27.2 % (36.0-47.0) Mean Corpuscular Volume 85 fL (79-100) Mean Corpuscular Hemoglobin 29 pg (25-35) Mean Corpuscular Hemoglobin Concent 34 g/dL (31-37) Red Cell Distribution Width 13.3 % (11.5-14.5) Platelet Count 313 x10^3/uL (140-400) Neutrophils (%) (Auto) 72 % (31-73) Lymphocytes (%) (Auto) 19 % (24-48) Monocytes (%) (Auto) 8 % (0-9) Eosinophils (%) (Auto) 1 % (0-3) Basophils (%) (Auto) 0 % (0-3) Neutrophils # (Auto) 4.5 x10^3uL (1.8-7.7) Lymphocytes # (Auto) 1.2 x10^3/uL (1.0-4.8) Monocytes # (Auto) 0.5 x10^3/uL (0.0-1.1) Eosinophils # (Auto) 0.1 x10^3/uL (0.0-0.7) Basophils # (Auto) 0.0 x10^3/uL (0.0-0.2) Sodium Level 143 mmol/L (136-145) Potassium Level 4.4 mmol/L (3.5-5.1) Chloride Level 108 mmol/L (98-107) Carbon Dioxide Level 28 mmol/L (21-32) Anion Gap 7 (6-14) Blood Urea Nitrogen 13 mg/dL (7-20) Creatinine 0.8 mg/dL (0.6-1.0) Estimated GFR (Cockcroft-Gault) 68.7 Glucose Level 118 mg/dL (70-99) Calcium Level 8.3 mg/dL (8.5-10.1) Glucose (Fingerstick) 148 mg/dL (70-99) Laboratory Tests Test 02/26/18 16:05 02/26/18 20:49 02/27/18 03:05 02/27/18 07:29 Glucose (Fingerstick) 179 mg/dL (70-99) 138 mg/dL (70-99) 148 mg/dL (70-99) White Blood Count 6.3 x10^3/uL (4.0-11.0) Red Blood Count 3.21 x10^6/uL (3.50-5.40) Hemoglobin 9.2 g/dL (12.0-15.5) Hematocrit 27.2 % (36.0-47.0) Mean Corpuscular Volume 85 fL (79-100) Mean Corpuscular Hemoglobin 29 pg (25-35) Mean Corpuscular Hemoglobin Concent 34 g/dL (31-37) Red Cell Distribution Width 13.3 % (11.5-14.5) Platelet Count 313 x10^3/uL (140-400) Neutrophils (%) (Auto) 72 % (31-73) Lymphocytes (%) (Auto) 19 % (24-48) Monocytes (%) (Auto) 8 % (0-9) Eosinophils (%) (Auto) 1 % (0-3) Basophils (%) (Auto) 0 % (0-3) Neutrophils # (Auto) 4.5 x10^3uL (1.8-7.7) Lymphocytes # (Auto) 1.2 x10^3/uL (1.0-4.8) Monocytes # (Auto) 0.5 x10^3/uL (0.0-1.1) Eosinophils # (Auto) 0.1 x10^3/uL (0.0-0.7) Basophils # (Auto) 0.0 x10^3/uL (0.0-0.2) Sodium Level 143 mmol/L (136-145) Potassium Level 4.4 mmol/L (3.5-5.1) Chloride Level 108 mmol/L (98-107) Carbon Dioxide Level 28 mmol/L (21-32) Anion Gap 7 (6-14) Blood Urea Nitrogen 13 mg/dL (7-20) Creatinine 0.8 mg/dL (0.6-1.0) Estimated GFR (Cockcroft-Gault) 68.7 Glucose Level 118 mg/dL (70-99) Calcium Level 8.3 mg/dL (8.5-10.1) Microbiology 02/21/18 Blood Culture - Final, Complete NO GROWTH AFTER 5 DAYS Medications Current Medications Vancomycin HCl (Vanco Per Pharmacy) 1 each PRN DAILY PRN MC SEE COMMENTS; Start 02/21/18 at 13:30; Stop 02/21/18 at 17:03; Status DC Sodium Chloride 1,000 ml @ 75 mls/hr [id number] IV Last administered on 06:01; Start 02/21/18 at 14:00; Stop 02/26/18 at 13:05; Status DC Atorvastatin Calcium (Lipitor) 10 mg HS PO Last administered on 02/26/18at 21: 58; Start 02/21/18 at 21:00 Ergocalciferol (Vitamin D2) 50,000 unit WEEKLY PO ; Start 02/28/18 at 09:00 Ferrous Sulfate (Feosol) 325 mg BIDWMEALS PO Last administered on 02/27/18at 08 :39; Start 02/21/18 at 17:00 Lactobacillus Rhamnosus (Culturelle) 1 cap BID PO Last administered on 08:40; Start 02/21/18 at 21:00 Ondansetron HCl (Zofran Odt) 4 mg PRN Q8HRS PRN PO NAUSEA; Start 02/21/18 at 14:45; Stop 02/21/18 at 19:15; Status DC Potassium Chloride (Klor-Con) 10 meq DAILY PO Last administered on 02/27/18at 08:40; Start 02/21/18 at 15:30 Lisinopril (Prinivil) 10 mg DAILY PO Last administered on 02/25/18at 09:54; Start 02/21/18 at 15:30; Stop 02/26/18 at 13:05; Status DC Fenofibrate (Lofibra) 54 mg DAILY PO Last administered on 02/27/18at 08:40; Start 02/22/18 at 09:00 Hydrochlorothiazide (Microzide) 12.5 mg DAILY PO Last administered on at 08:39; Start 02/21/18 at 15:30 Linagliptin (Tradjenta) 5 mg DAILY PO Last administered on 02/27/18 08:40; Start 02/21/18 at 15:30 Metformin HCl (Glucophage) 500 mg TIDWMEALS PO Last administered on 02/27/18at 11:49; Start 02/21/18 at 17:00 Pantoprazole Sodium (Protonix) 40 mg DAILYAC PO Last administered on 07:32; Start 02/21/18 at 15:30; Stop 02/23/18 at 20:08; Status DC Sucralfate (Carafate) 1 gm BID PO Last administered on 02/27/18at 08:41; Start 02/21/18 at 21:00 Amlodipine Besylate (Norvasc) 5 mg DAILY PO Last administered on 02/27/18at 08: 40; Start 02/21/18 at 15:30 Ampicillin Sodium/ Sulbactam Sodium 1.5 gm/Sodium Chloride 50 ml @ 100 mls/hr Q6HRS IV ; Start 02/21/18 at 18:00; Stop 02/21/18 at 18:00; Status DC Meropenem 500 mg/ Sodium Chloride 50 ml @ 100 mls/hr Q8HRS IV Last administered on 02/27/18at 05:29; Start 02/21/18 at 17:00 Insulin Human Lispro (HumaLOG) 10 units 1X ONCE SQ Last administered on at 17:27; Start 02/21/18 at 17:00; Stop 02/21/18 at 17:01; Status DC Sodium Chloride 1,000 ml @ 166.667 mls/hr Q6H IV Last administered on at 18:24; Start 02/21/18 at 18:24; Stop 02/21/18 at 19:43; Status DC Dobutamine HCl/ Dextrose 250 ml @ 0 mls/hr CONT PRN IV SEE I/O RECORD; Start 02/21/18 at 18:30; Stop 02/21/18 at 18:35; Status DC Acetaminophen/ Hydrocodone Bitart (Lortab 5/325) 1 tab PRN Q4HRS PRN PO PAIN Last administered on 02/25/18at 09:54; Start 02/21/18 at 19:15 Acetaminophen (Tylenol) 500 mg PRN Q6HRS PRN PO HEADACHE / TEMP Last administered on 02/24/18at 09:07; Start 02/21/18 at 19:15 Ondansetron HCl (Zofran) 4 mg PRN Q6HRS PRN IV NAUSEA/VOMITING; Start at 19:15 Ondansetron HCl (Zofran Odt) 4 mg PRN Q6HRS PRN PO NAUSEA/VOMITING; Start at 19:15 Insulin Human Lispro (HumaLOG) 0-9 UNITS TIDWMEALS SQ Last administered on at 17:00; Start 02/22/18 at 08:00 Dextrose (Dextrose 50%-Water Syringe) 12.5 gm PRN Q15MIN PRN IV SEE COMMENTS; Start 02/21/18 at 19:15 Prochlorperazine Edisylate (Compazine) 5 mg PACU PRN PRN IV NAUSEA, MRX1; Start 02/23/18 at 07:00; Stop 02/24/18 at 06:59; Status DC Hydromorphone HCl (Dilaudid) 0.5 mg PRN Q10MIN PRN IV SEV PAIN, Second choice; Start 02/23/18 at 07:00; Stop 02/24/18 at 06:59; Status DC Lidocaine HCl (Xylocaine-Mpf 1% 2ml Vial) 2 ml PRN 1X PRN ID IV START; Start 02/23/18 at 07:00; Stop 02/24/18 at 06:59; Status DC Ringer's Solution 1,000 ml @ 30 mls/hr Q24H IV ; Start 02/23/18 at 07:00; Stop 02/23/18 at 18:59; Status DC Morphine Sulfate (Morphine Sulfate) 1 mg PRN Q10MIN PRN IV SEVERE PAIN; Start 02/23/18 at 07:00; Stop 02/24/18 at 06:59; Status DC Fentanyl Citrate (Fentanyl 2ml Vial) 50 mcg PRN Q5MIN PRN IV MODERATE TO SEVERE PAIN; Start 02/23/18 at 07:00; Stop 02/24/18 at 06:59; Status DC Fentanyl Citrate (Fentanyl 2ml Vial) 25 mcg PRN Q5MIN PRN IV MILD PAIN; Start 02/23/18 at 07:00; Stop 02/24/18 at 06:59; Status DC Ondansetron HCl (Zofran) 4 mg PRN Q6HRS PRN IV NAUSEA/VOMITING; Start at 07:00; Stop 02/24/18 at 06:59; Status DC Rocuronium [place] (Zemuron) 50 mg STK-MED ONCE .ROUTE ; Start 02/23/18 at 10: 01; Stop 02/23/18 at 10:02; Status DC Fentanyl Citrate (Fentanyl 2ml Vial) 100 mcg STK-MED ONCE .ROUTE ; Start at 10:01; Stop 02/23/18 at 10:02; Status DC Sevoflurane (Ultane) 30 ml STK-MED ONCE IH ; Start 02/23/18 at 10:01; Stop at 10:02; Status DC Propofol 20 ml @ As Directed STK-MED ONCE IV ; Start 02/23/18 at 10:02; Stop 02/23/18 at 10:03; Status DC Phenylephrine HCl (PHENYLEPHRINE in 0.9% NACL PF) 1 mg STK-MED ONCE IV ; Start 02/23/18 at 10:02; Stop 02/23/18 at 10:03; Status DC Dexamethasone Sodium Phosphate (Decadron) 20 mg STK-MED ONCE .ROUTE ; Start at 10:02; Stop 02/23/18 at 10:03; Status DC Ondansetron HCl (Zofran) 4 mg STK-MED ONCE .ROUTE ; Start 02/23/18 at 10:02; Stop 02/23/18 at 10:03; Status DC Sodium Chloride 1,000 ml @ 75 mls/hr [id number] IV Last administered on at 15:50; Start 02/23/18 at 10:30; Stop 02/26/18 at 13:05; Status DC Bupivacaine HCl/ Epinephrine Bitart (Sensorcain-Mpf Epi 0.5%-1:688534) 30 ml STK -MED ONCE .ROUTE ; Start 02/23/18 at 09:46; Stop 02/23/18 at 10:47; Status DC Bupivacaine HCl/ Epinephrine Bitart (Marcaine-Epi 0.5%-1:859147) 50 ml STK-MED ONCE .ROUTE ; Start 02/23/18 at 09:48; Stop 02/23/18 at 10:48; Status DC Neostigmine Methylsulfate (Neostigmine Methylsulfate) 5 mg STK-MED ONCE .ROUTE ; Start 02/23/18 at 11:39; Stop 02/23/18 at 11:40; Status DC Glycopyrrolate (Robinul) 1 mg STK-MED ONCE .ROUTE ; Start 02/23/18 at 11:39; Stop 02/23/18 at 11:40; Status DC Lansoprazole (Prevacid) 30 mg DAILYAC PO Last administered on 02/27/18at 08:40 ; Start 02/24/18 at 07:30 Insulin Human Lispro (HumaLOG) 4 units 1X ONCE SQ Last administered on at 21:50; Start 02/23/18 at 21:30; Stop 02/23/18 at 21:31; Status DC Active Scripts Active Vitamin D2 (Ergocalciferol (Vitamin D2)) 50,000 Unit Capsule 50,000 Unit PO WEEKLY 4 Days Tradjenta (Linagliptin) 5 Mg Tablet 5 Mg PO DAILY 30 Days Glucophage (Metformin Hcl) 500 Mg Tablet 500 Mg PO TIDWMEALS 30 Days Culturelle (Lactobacillus Rhamnosus Gg) 1 Each Cap.sprink 1 Cap PO BID 30 Days Reported Zofran Odt (Ondansetron) 4 Mg Tab.rapdis 1 Tab SL PRN Q8HRS PRN Hydrochlorothiazide Tablet (Hydrochlorothiazide) 12.5 Mg Tablet 1 Tab PO DAILY Benazepril Hcl 20 Mg Tablet 0.5 Tab PO DAILY Norvasc (Amlodipine Besylate) 10 Mg Tablet 5 Mg PO DAILY Potassium Chloride 10 Meq Capsule.er 10 Meq PO DAILY Ferrous Sulfate 325 Mg Tablet 325 Mg PO BID Fenofibrate (Fenofibrate Nanocrystallized) 48 Mg Tablet 48 Mg PO DAILY Sucralfate 1 Gm Tablet 1 Tab PO BID Omeprazole 40 Mg Capsule.dr 1 Cap PO DAILY Atorvastatin Calcium 10 Mg Tablet 10 Mg PO HS Vitals/I & O Vital Sign - Last 24 Hours 02/26/18 02/26/18 02/26/18 02/26/18 14:14 15:00 19:00 20:00 Temp 97.5 97.6 97.5 97.6 Pulse 70 70 71 Resp 18 18 B/P (MAP) 125/65 116/54 (74) 119/50 (73) Pulse Ox 95 93 O2 Delivery Room Air Room Air Room Air 02/26/18 02/27/18 02/27/18 02/27/18 23:00 03:00 07:00 07:05 Temp 99.2 99.0 98.5 99.2 99.0 98.5 Pulse 84 81 82 Resp 18 18 16 B/P (MAP) 103/53 (70) 138/67 (90) 139/98 (112) Pulse Ox 93 93 95 O2 Delivery Room Air Room Air Room Air Room Air 02/27/18 08:40 Pulse 82 B/P (MAP) 139/98 Intake and Output 02/26/18 02/26/18 02/27/18 15:00 23:00 07:00 Intake Total 2050 ml Output Total 950 ml 300 ml Balance -950 ml 1750 ml Nutrition Consultation Dietary Evaluation: Comments: continue with diet as ordered REC mvi, vit c per wound protocal Expected Outcomes/Goals: to meet > 75% est nutr needs improved wound status Malnutrition Findings: Body Fat Depletion (Non Severe: Mod to Severe Weight Status: Underweight NATHANIEL CRENSHAW MD Feb 27, 2018 12:08
--- NOTE | 2018-02-27 12:11 | PDOC ---
Infectious Disease Note Subjective: Subjective pt comfortable asking for change of her room No fevers ROS: ROS unable to obtain confused Vital Signs: Vital Signs Vital Signs Date Time Temp Pulse Resp B/P (MAP) Pulse Ox O2 Delivery O2 Flow Rate FiO2 02/27/18 08:40 82 139/98 02/27/18 07:05 Room Air 02/27/18 07:00 98.5 16 95 98.5 Physical Exam: PHYSICAL EXAM GENERAL: Propped up in bed, alert, eating , NOT answer questions for follow commands LUNGS: Clear. HEART: S1, S2 regular. ABDOMEN: Soft, NT SKIN: w/o rash. Multiple wounds. Right ischial wound wound vac in place. EXTREMITIES: No edema or cyanosis RN INVASIVE: Alert, follows simple commands PIV Medications: Inpatient Meds: Current Medications Medications (Trade) Dose Ordered Sig/Lana Start Time Stop Time Status Last Admin Dose Admin Acetaminophen (Tylenol) 500 mg PRN Q6HRS PRN 02/21/18 19:15 02/24/18 09:07 500 MG Acetaminophen/ Hydrocodone Bitart (Lortab 5/325) 1 tab PRN Q4HRS PRN 02/21/18 19:15 02/25/18 09:54 1 TAB Amlodipine Besylate (Norvasc) 5 mg DAILY 02/21/18 15:30 02/27/18 08:40 5 MG Ampicillin Sodium/ Sulbactam Sodium 1.5 gm/Sodium Chloride 50 ml @ 100 mls/hr Q6HRS 02/21/18 18:00 02/21/18 18:00 DC Atorvastatin Calcium (Lipitor) 10 mg HS 02/21/18 21:00 02/26/18 21:58 10 MG Bupivacaine HCl/ Epinephrine Bitart (Marcaine-Epi 0.5%-1:705332) 50 ml STK-MED ONCE 02/23/18 09:48 02/23/18 10:48 DC Bupivacaine HCl/ Epinephrine Bitart (Sensorcain-Mpf Epi 0.5%-1:687267) 30 ml STK-MED ONCE 02/23/18 09:46 02/23/18 10:47 DC Dexamethasone Sodium Phosphate (Decadron) 20 mg STK-MED ONCE 02/23/18 10:02 02/23/18 10:03 DC Dextrose (Dextrose 50%-Water Syringe) 12.5 gm PRN Q15MIN PRN 10/24/18 19:15 Dobutamine HCl/ Dextrose 250 ml @ 0 mls/hr CONT PRN 02/21/18 18:30 02/21/18 18:35 DC Ergocalciferol (Vitamin D2) 50,000 unit WEEKLY 02/28/18 09:00 Fenofibrate (Lofibra) 54 mg DAILY 02/22/18 09:00 02/27/18 08:40 54 MG Fentanyl Citrate (Fentanyl 2ml Vial) 100 mcg STK-MED ONCE 02/23/18 10:01 02/23/18 10:02 DC Ferrous Sulfate (Feosol) 325 mg BIDWMEALS 02/21/18 17:00 02/27/18 08:39 325 MG Glycopyrrolate (Robinul) 1 mg STK-MED ONCE 02/23/18 11:39 02/23/18 11:40 DC Hydrochlorothiazide (Microzide) 12.5 mg DAILY 02/21/18 15:30 02/27/18 08:39 12.5 MG Hydromorphone HCl (Dilaudid) 0.5 mg PRN Q10MIN PRN 02/23/18 07:00 02/24/18 06:59 DC Insulin Human Lispro (HumaLOG) 4 units 1X ONCE 02/23/18 21:30 02/23/18 21:31 DC 02/23/18 21:50 4 UNITS Lactobacillus Rhamnosus (Culturelle) 1 cap BID 02/21/18 21:00 02/27/18 08:40 1 CAP Lansoprazole (Prevacid) 30 mg DAILYAC 02/24/18 07:30 02/27/18 08:40 30 MG Lidocaine HCl (Xylocaine-Mpf 1% 2ml Vial) 2 ml PRN 1X PRN 02/23/18 07:00 02/24/18 06:59 DC Linagliptin (Tradjenta) 5 mg DAILY 02/21/18 15:30 02/27/18 08:40 5 MG Lisinopril (Prinivil) 10 mg DAILY 02/21/18 15:30 02/26/18 13:05 DC 02/25/18 09:54 10 MG Meropenem 500 mg/ Sodium Chloride 50 ml @ 100 mls/hr Q8HRS 02/21/18 17:00 02/27/18 05:29 100 MLS/HR Metformin HCl (Glucophage) 500 mg TIDWMEALS 02/21/18 17:00 02/27/18 11:49 500 MG Morphine Sulfate (Morphine Sulfate) 1 mg PRN Q10MIN PRN 02/23/18 07:00 02/24/18 06:59 DC Neostigmine Methylsulfate (Neostigmine Methylsulfate) 5 mg STK-MED ONCE 02/23/18 11:39 02/23/18 11:40 DC Ondansetron HCl (Zofran Odt) 4 mg PRN Q6HRS PRN 02/21/18 19:15 Ondansetron HCl (Zofran) 4 mg STK-MED ONCE 02/23/18 10:02 02/23/18 10:03 DC Pantoprazole Sodium (Protonix) 40 mg DAILYAC 02/21/18 15:30 02/23/18 20:08 DC 02/22/18 07:32 40 MG Phenylephrine HCl (PHENYLEPHRINE in 0.9% NACL PF) 1 mg STK-MED ONCE 02/23/18 10:02 02/23/18 10:03 DC Potassium Chloride (Klor-Con) 10 meq DAILY 02/21/18 15:30 02/27/18 08:40 10 MEQ Prochlorperazine Edisylate (Compazine) 5 mg PACU PRN PRN 02/23/18 07:00 02/24/18 06:59 DC Propofol 20 ml @ As Directed STK-MED ONCE 02/23/18 10:02 02/23/18 10:03 DC Ringer's Solution 1,000 ml @ 30 mls/hr Q24H 02/23/18 07:00 02/23/18 18:59 DC Rocuronium [place] (Zemuron) 50 mg STK-MED ONCE 02/23/18 10:01 02/23/18 10:02 DC Sevoflurane (Ultane) 30 ml STK-MED ONCE 02/23/18 10:01 02/23/18 10:02 DC Sodium Chloride 1,000 ml @ 75 mls/hr [id number] 02/23/18 10:30 02/26/18 13:05 DC 02/25/18 15:50 75 MLS/HR Sucralfate (Carafate) 1 gm BID 02/21/18 21:00 02/27/18 08:41 1 GM Vancomycin HCl (Vanco Per Pharmacy) 1 each PRN DAILY PRN 02/21/18 13:30 02/21/18 17:03 DC Labs: Lab Laboratory Tests Test 02/26/18 16:05 02/26/18 20:49 02/27/18 03:05 02/27/18 07:29 Glucose (Fingerstick) 179 mg/dL (70-99) 138 mg/dL (70-99) 148 mg/dL (70-99) White Blood Count 6.3 x10^3/uL (4.0-11.0) Red Blood Count 3.21 x10^6/uL (3.50-5.40) Hemoglobin 9.2 g/dL (12.0-15.5) Hematocrit 27.2 % (36.0-47.0) Mean Corpuscular Volume 85 fL (79-100) Mean Corpuscular Hemoglobin 29 pg (25-35) Mean Corpuscular Hemoglobin Concent 34 g/dL (31-37) Red Cell Distribution Width 13.3 % (11.5-14.5) Platelet Count 313 x10^3/uL (140-400) Neutrophils (%) (Auto) 72 % (31-73) Lymphocytes (%) (Auto) 19 % (24-48) Monocytes (%) (Auto) 8 % (0-9) Eosinophils (%) (Auto) 1 % (0-3) Basophils (%) (Auto) 0 % (0-3) Neutrophils # (Auto) 4.5 x10^3uL (1.8-7.7) Lymphocytes # (Auto) 1.2 x10^3/uL (1.0-4.8) Monocytes # (Auto) 0.5 x10^3/uL (0.0-1.1) Eosinophils # (Auto) 0.1 x10^3/uL (0.0-0.7) Basophils # (Auto) 0.0 x10^3/uL (0.0-0.2) Sodium Level 143 mmol/L (136-145) Potassium Level 4.4 mmol/L (3.5-5.1) Chloride Level 108 mmol/L (98-107) Carbon Dioxide Level 28 mmol/L (21-32) Anion Gap 7 (6-14) Blood Urea Nitrogen 13 mg/dL (7-20) Creatinine 0.8 mg/dL (0.6-1.0) Estimated GFR (Cockcroft-Gault) 68.7 Glucose Level 118 mg/dL (70-99) Calcium Level 8.3 mg/dL (8.5-10.1) Objective: Assessment: Right ischial wound s/p excisional debridement 02/23 , not to the bone per operative report BC neg Right and left hip wound Dementia Wheelchair bound Anemia Plan: Plan of Care Continue meropenem when ready for discharge change to empiric doxycycline and cipro for10 days Probiotics Monitor labs Wound care Supportive care D/W REY HENRY MD Feb 27, 2018 12:11
[2018-02-27 15:00] VITALS: BP 121/61
[2018-02-27 19:00] VITALS: BP 124/62
[2018-02-27] MEDS: ATORVASTATIN CALCIUM 10 MG TABLET. PO SCH (21:51)
[2018-02-27 23:00] VITALS: BP 132/66
[2018-02-28 03:00] VITALS: BP 115/56
[2018-02-28 05:12] LABS: BASO % 0 % (0-3); EOS # 0.1 x10^3/uL (0.0-0.7); EOS % 2 % (0-3); HEMATOCRIT 26.7 % (36.0-47.0); LYMPH # 1.5 x10^3/uL (1.0-4.8); LYMPH % 20 % (24-48); MEAN CORPUSCULAR HEMOGLOBIN 29 pg (25-35); MEAN CORPUSCULAR HGB CONC 34 g/dL (31-37); MEAN CORPUSCULAR VOLUME 85 fL (79-100); MONO # 0.6 x10^3/uL (0.0-1.1); MONO % 8 % (0-9); NEUT % 70 % (31-73); PLATELET COUNT 253 x10^3/uL (140-400); RED BLOOD COUNT 3.16 x10^6/uL (3.50-5.40); RED CELL DISTRIBUTION WIDTH 13.5 % (11.5-14.5); WHITE BLOOD COUNT 7.2 x10^3/uL (4.0-11.0)
[2018-02-28] MEDS: MEROPENEM 500 MG in IV NORMAL SALINE 50ML 50 ML IV SCH (05:23)
[2018-02-28 05:36] LABS: CREATININE 0.7 mg/dL (0.6-1.0); GFR 80.1; POTASSIUM 4.1 mmol/L (3.5-5.1)
[2018-02-28 07:00] VITALS: BP 137/64
[2018-02-28] MEDS: INSULIN LISPRO 300 UNITS/3 ML INSULN.PEN. SQ SCH ×2 (08:00→11:14)
[2018-02-28] MEDS ORDERED: ERGOCALCIFEROL (VITAMIN D2) 50,000 UNIT CAPSULE. PO SCH (09:00)
[2018-02-28] MEDS: LACTOBACILLUS RHAMNOSUS GG 1 CAPSULE. PO SCH (09:02)
[2018-02-28] MEDS: FENOFIBRATE 54 MG TABLET. PO SCH (09:02)
[2018-02-28] MEDS: metFORMIN 500 MG TABLET PO SCH ×2 (09:02→12:32)
[2018-02-28] MEDS: SUCRALFATE 1 GM TABLET. PO SCH (09:02)
[2018-02-28] MEDS: LANSOPRAZOLE 30 MG TAB.RAP.DR PO SCH (09:02)
[2018-02-28] MEDS: hydroCHLOROthiazide 12.5 MG CAPSULE PO SCH (09:02)
[2018-02-28] MEDS: LINAGLIPTIN 5 MG TABLET PO SCH (09:02)
[2018-02-28] MEDS: FERROUS SULFATE 325 MG TABLET. PO SCH (09:03)
[2018-02-28] MEDS: amLODIPine BESYLATE 5 MG TABLET PO SCH (09:03)
[2018-02-28] MEDS: POTASSIUM CHLORIDE 10 MEQ TABLET.ER. PO SCH (09:05)
--- NOTE | 2018-02-28 10:57 | PDOC ---
Infectious Disease Note Subjective Subjective pt comfortable asking for change of her room No fevers ROS ROS no n/v/d/ Vital Sign Vital Signs Vital Signs Date Time Temp Pulse Resp B/P (MAP) Pulse Ox O2 Delivery O2 Flow Rate FiO2 02/28/18 09:03 61 137/64 02/28/18 07:10 Room Air 02/28/18 07:00 98.2 16 94 98.2 Physical Exam PHYSICAL EXAM GENERAL: Propped up in bed, alert, eating , NOT answer questions for follow commands LUNGS: Clear. HEART: S1, S2 regular. ABDOMEN: Soft, NT SKIN: w/o rash. Multiple wounds. Right ischial wound wound vac in place. 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 PIV Labs Lab Laboratory Tests Test 02/27/18 11:55 02/27/18 16:42 02/27/18 20:24 02/28/18 03:25 Glucose (Fingerstick) 146 mg/dL (70-99) 125 mg/dL (70-99) 149 mg/dL (70-99) White Blood Count 7.2 x10^3/uL (4.0-11.0) Red Blood Count 3.16 x10^6/uL (3.50-5.40) Hemoglobin 9.0 g/dL (12.0-15.5) Hematocrit 26.7 % (36.0-47.0) Mean Corpuscular Volume 85 fL (79-100) Mean Corpuscular Hemoglobin 29 pg (25-35) Mean Corpuscular Hemoglobin Concent 34 g/dL (31-37) Red Cell Distribution Width 13.5 % (11.5-14.5) Platelet Count 253 x10^3/uL (140-400) Neutrophils (%) (Auto) 70 % (31-73) Lymphocytes (%) (Auto) 20 % (24-48) Monocytes (%) (Auto) 8 % (0-9) Eosinophils (%) (Auto) 2 % (0-3) Basophils (%) (Auto) 0 % (0-3) Neutrophils # (Auto) 5.0 x10^3uL (1.8-7.7) Lymphocytes # (Auto) 1.5 x10^3/uL (1.0-4.8) Monocytes # (Auto) 0.6 x10^3/uL (0.0-1.1) Eosinophils # (Auto) 0.1 x10^3/uL (0.0-0.7) Basophils # (Auto) 0.0 x10^3/uL (0.0-0.2) Sodium Level 144 mmol/L (136-145) Potassium Level 4.1 mmol/L (3.5-5.1) Chloride Level 108 mmol/L (98-107) Carbon Dioxide Level 27 mmol/L (21-32) Anion Gap 9 (6-14) Blood Urea Nitrogen 13 mg/dL (7-20) Creatinine 0.7 mg/dL (0.6-1.0) Estimated GFR (Cockcroft-Gault) 80.1 Glucose Level 102 mg/dL (70-99) Calcium Level 9.0 mg/dL (8.5-10.1) Test 02/28/18 07:35 Glucose (Fingerstick) 101 mg/dL (70-99) Micro Microbiology 02/21/18 Blood Culture - Final, Complete NO GROWTH AFTER 5 DAYS Objective Assessment Rt ischeal wound s/p I and D Rt and left hip wound Dementia Wheelchair bound Plan Plan of Care discharge with empiric doxycycline and cipro for10 days Probiotics Monitor labs Wound care Supportive care D/W NUSRAT HENRY MD Feb 28, 2018 10:56
[2018-02-28 11:24] VITALS: BP 134/62
--- NOTE | 2018-02-28 11:38 | PDOC ---
PROGRESS NOTES Chief Complaint Chief Complaint Rt ischial wound s/p I&D 02/23 w/wound vac Rt and left hip wound Dementia - severe Wheelchair bound, from assisted living facility HTN ADRIENNE, vasomotor CKD3 Lactic acidosis H/o GERD H/o DM H/o osteoporosis H/o hyperlipidemia History of Present Illness History of Present Illness Pt seen and examined while sitting up in bed Pt appeared comfortable and in NAD Vitals Vitals Vital Signs Date Time Temp Pulse Resp B/P (MAP) Pulse Ox O2 Delivery O2 Flow Rate FiO2 02/28/18 11:24 98.3 64 16 134/62 (86) 98 Room Air 98.3 Physical Exam Physical Exam Neck: Supple. No JVD HEENT: ANTOLIN b/l General: Alert, No acute distress, Other Heart: Regular rate, Normal S1, Normal S2, No murmurs Lungs: Clear Abdomen: Normal bowel sounds, Soft Extremities: Other (atrophied muscles, wound vac left ischium ) Skin: Other (wound vac in place) Labs LABS Laboratory Tests Test 02/27/18 11:55 02/27/18 16:42 02/27/18 20:24 02/28/18 03:25 Glucose (Fingerstick) 146 mg/dL (70-99) 125 mg/dL (70-99) 149 mg/dL (70-99) White Blood Count 7.2 x10^3/uL (4.0-11.0) Red Blood Count 3.16 x10^6/uL (3.50-5.40) Hemoglobin 9.0 g/dL (12.0-15.5) Hematocrit 26.7 % (36.0-47.0) Mean Corpuscular Volume 85 fL (79-100) Mean Corpuscular Hemoglobin 29 pg (25-35) Mean Corpuscular Hemoglobin Concent 34 g/dL (31-37) Red Cell Distribution Width 13.5 % (11.5-14.5) Platelet Count 253 x10^3/uL (140-400) Neutrophils (%) (Auto) 70 % (31-73) Lymphocytes (%) (Auto) 20 % (24-48) Monocytes (%) (Auto) 8 % (0-9) Eosinophils (%) (Auto) 2 % (0-3) Basophils (%) (Auto) 0 % (0-3) Neutrophils # (Auto) 5.0 x10^3uL (1.8-7.7) Lymphocytes # (Auto) 1.5 x10^3/uL (1.0-4.8) Monocytes # (Auto) 0.6 x10^3/uL (0.0-1.1) Eosinophils # (Auto) 0.1 x10^3/uL (0.0-0.7) Basophils # (Auto) 0.0 x10^3/uL (0.0-0.2) Sodium Level 144 mmol/L (136-145) Potassium Level 4.1 mmol/L (3.5-5.1) Chloride Level 108 mmol/L (98-107) Carbon Dioxide Level 27 mmol/L (21-32) Anion Gap 9 (6-14) Blood Urea Nitrogen 13 mg/dL (7-20) Creatinine 0.7 mg/dL (0.6-1.0) Estimated GFR (Cockcroft-Gault) 80.1 Glucose Level 102 mg/dL (70-99) Calcium Level 9.0 mg/dL (8.5-10.1) Test 02/28/18 07:35 02/28/18 11:07 Glucose (Fingerstick) 101 mg/dL (70-99) 119 mg/dL (70-99) Review of Systems Review of Systems Pt unable to answer questions due to h/o cognitive disability Pt appears to have healthy appetite having just finished breakfast and already asking for lunch Assessment and Plan Assessmemt and Plan Assessment: Rt ischial wound s/p I&D 02/23 w/wound vac Rt and left hip wound Dementia - severe Wheelchair bound, from assisted living facility HTN ADRIENNE, vasomotor CKD3 H/o GERD H/o DM H/o osteoporosis H/o hyperlipidemia Plan: Cont IV abx Cont wound vac D/c disposition pending Home meds DVT ppx Comment Review of Relevant I have reviewed the following items scott (where applicable) has been applied. Labs Laboratory Tests Test 02/26/18 16:05 02/26/18 20:49 02/27/18 03:05 02/27/18 07:29 Glucose (Fingerstick) 179 mg/dL (70-99) 138 mg/dL (70-99) 148 mg/dL (70-99) White Blood Count 6.3 x10^3/uL (4.0-11.0) Red Blood Count 3.21 x10^6/uL (3.50-5.40) Hemoglobin 9.2 g/dL (12.0-15.5) Hematocrit 27.2 % (36.0-47.0) Mean Corpuscular Volume 85 fL (79-100) Mean Corpuscular Hemoglobin 29 pg (25-35) Mean Corpuscular Hemoglobin Concent 34 g/dL (31-37) Red Cell Distribution Width 13.3 % (11.5-14.5) Platelet Count 313 x10^3/uL (140-400) Neutrophils (%) (Auto) 72 % (31-73) Lymphocytes (%) (Auto) 19 % (24-48) Monocytes (%) (Auto) 8 % (0-9) Eosinophils (%) (Auto) 1 % (0-3) Basophils (%) (Auto) 0 % (0-3) Neutrophils # (Auto) 4.5 x10^3uL (1.8-7.7) Lymphocytes # (Auto) 1.2 x10^3/uL (1.0-4.8) Monocytes # (Auto) 0.5 x10^3/uL (0.0-1.1) Eosinophils # (Auto) 0.1 x10^3/uL (0.0-0.7) Basophils # (Auto) 0.0 x10^3/uL (0.0-0.2) Sodium Level 143 mmol/L (136-145) Potassium Level 4.4 mmol/L (3.5-5.1) Chloride Level 108 mmol/L (98-107) Carbon Dioxide Level 28 mmol/L (21-32) Anion Gap 7 (6-14) Blood Urea Nitrogen 13 mg/dL (7-20) Creatinine 0.8 mg/dL (0.6-1.0) Estimated GFR (Cockcroft-Gault) 68.7 Glucose Level 118 mg/dL (70-99) Calcium Level 8.3 mg/dL (8.5-10.1) Test 02/27/18 11:55 02/27/18 16:42 02/27/18 20:24 02/28/18 03:25 Glucose (Fingerstick) 146 mg/dL (70-99) 125 mg/dL (70-99) 149 mg/dL (70-99) White Blood Count 7.2 x10^3/uL (4.0-11.0) Red Blood Count 3.16 x10^6/uL (3.50-5.40) Hemoglobin 9.0 g/dL (12.0-15.5) Hematocrit 26.7 % (36.0-47.0) Mean Corpuscular Volume 85 fL (79-100) Mean Corpuscular Hemoglobin 29 pg (25-35) Mean Corpuscular Hemoglobin Concent 34 g/dL (31-37) Red Cell Distribution Width 13.5 % (11.5-14.5) Platelet Count 253 x10^3/uL (140-400) Neutrophils (%) (Auto) 70 % (31-73) Lymphocytes (%) (Auto) 20 % (24-48) Monocytes (%) (Auto) 8 % (0-9) Eosinophils (%) (Auto) 2 % (0-3) Basophils (%) (Auto) 0 % (0-3) Neutrophils # (Auto) 5.0 x10^3uL (1.8-7.7) Lymphocytes # (Auto) 1.5 x10^3/uL (1.0-4.8) Monocytes # (Auto) 0.6 x10^3/uL (0.0-1.1) Eosinophils # (Auto) 0.1 x10^3/uL (0.0-0.7) Basophils # (Auto) 0.0 x10^3/uL (0.0-0.2) Sodium Level 144 mmol/L (136-145) Potassium Level 4.1 mmol/L (3.5-5.1) Chloride Level 108 mmol/L (98-107) Carbon Dioxide Level 27 mmol/L (21-32) Anion Gap 9 (6-14) Blood Urea Nitrogen 13 mg/dL (7-20) Creatinine 0.7 mg/dL (0.6-1.0) Estimated GFR (Cockcroft-Gault) 80.1 Glucose Level 102 mg/dL (70-99) Calcium Level 9.0 mg/dL (8.5-10.1) Test 02/28/18 07:35 02/28/18 11:07 Glucose (Fingerstick) 101 mg/dL (70-99) 119 mg/dL (70-99) Laboratory Tests Test 02/27/18 11:55 02/27/18 16:42 02/27/18 20:24 02/28/18 03:25 Glucose (Fingerstick) 146 mg/dL (70-99) 125 mg/dL (70-99) 149 mg/dL (70-99) White Blood Count 7.2 x10^3/uL (4.0-11.0) Red Blood Count 3.16 x10^6/uL (3.50-5.40) Hemoglobin 9.0 g/dL (12.0-15.5) Hematocrit 26.7 % (36.0-47.0) Mean Corpuscular Volume 85 fL (79-100) Mean Corpuscular Hemoglobin 29 pg (25-35) Mean Corpuscular Hemoglobin Concent 34 g/dL (31-37) Red Cell Distribution Width 13.5 % (11.5-14.5) Platelet Count 253 x10^3/uL (140-400) Neutrophils (%) (Auto) 70 % (31-73) Lymphocytes (%) (Auto) 20 % (24-48) Monocytes (%) (Auto) 8 % (0-9) Eosinophils (%) (Auto) 2 % (0-3) Basophils (%) (Auto) 0 % (0-3) Neutrophils # (Auto) 5.0 x10^3uL (1.8-7.7) Lymphocytes # (Auto) 1.5 x10^3/uL (1.0-4.8) Monocytes # (Auto) 0.6 x10^3/uL (0.0-1.1) Eosinophils # (Auto) 0.1 x10^3/uL (0.0-0.7) Basophils # (Auto) 0.0 x10^3/uL (0.0-0.2) Sodium Level 144 mmol/L (136-145) Potassium Level 4.1 mmol/L (3.5-5.1) Chloride Level 108 mmol/L (98-107) Carbon Dioxide Level 27 mmol/L (21-32) Anion Gap 9 (6-14) Blood Urea Nitrogen 13 mg/dL (7-20) Creatinine 0.7 mg/dL (0.6-1.0) Estimated GFR (Cockcroft-Gault) 80.1 Glucose Level 102 mg/dL (70-99) Calcium Level 9.0 mg/dL (8.5-10.1) Test 02/28/18 07:35 02/28/18 11:07 Glucose (Fingerstick) 101 mg/dL (70-99) 119 mg/dL (70-99) Microbiology 02/21/18 Blood Culture - Final, Complete NO GROWTH AFTER 5 DAYS Medications Current Medications Vancomycin HCl (Vanco Per Pharmacy) 1 each PRN DAILY PRN MC SEE COMMENTS; Start 02/21/18 at 13:30; Stop 02/21/18 at 17:03; Status DC Sodium Chloride 1,000 ml @ 75 mls/hr [id number] IV Last administered on at 06:01; Start 02/21/18 at 14:00; Stop 02/26/18 at 13:05; Status DC Atorvastatin Calcium (Lipitor) 10 mg HS PO Last administered on 02/27/18at 21: 51; Start 02/21/18 at 21:00 Ergocalciferol (Vitamin D2) 50,000 unit WEEKLY PO Last administered on at 09:08; Start 02/28/18 at 09:00 Ferrous Sulfate (Feosol) 325 mg BIDWMEALS PO Last administered on 02/28/18at 09 :03; Start 02/21/18 at 17:00 Lactobacillus Rhamnosus (Culturelle) 1 cap BID PO Last administered on at 09:02; Start 02/21/18 at 21:00 Ondansetron HCl (Zofran Odt) 4 mg PRN Q8HRS PRN PO NAUSEA; Start 02/21/18 at 14:45; Stop 02/21/18 at 19:15; Status DC Potassium Chloride (Klor-Con) 10 meq DAILY PO Last administered on 02/28/18at 09:05; Start 02/21/18 at 15:30 Lisinopril (Prinivil) 10 mg DAILY PO Last administered on 02/25/18at 09:54; Start 02/21/18 at 15:30; Stop 02/26/18 at 13:05; Status DC Fenofibrate (Lofibra) 54 mg DAILY PO Last administered on 02/28/18at 09:02; Start 02/22/18 at 09:00 Hydrochlorothiazide (Microzide) 12.5 mg DAILY PO Last administered on 09:02; Start 02/21/18 at 15:30 Linagliptin (Tradjenta) 5 mg DAILY PO Last administered on 02/28/18 09:02; Start 02/21/18 at 15:30 Metformin HCl (Glucophage) 500 mg TIDWMEALS PO Last administered on 02/28/18 09:02; Start 02/21/18 at 17:00 Pantoprazole Sodium (Protonix) 40 mg DAILYAC PO Last administered on 07:32; Start 02/21/18 at 15:30; Stop 02/23/18 at 20:08; Status DC Sucralfate (Carafate) 1 gm BID PO Last administered on 02/28/18 09:02; Start 02/21/18 at 21:00 Amlodipine Besylate (Norvasc) 5 mg DAILY PO Last administered on 02/28/18 09: 03; Start 02/21/18 at 15:30 Ampicillin Sodium/ Sulbactam Sodium 1.5 gm/Sodium Chloride 50 ml @ 100 mls/hr Q6HRS IV ; Start 02/21/18 at 18:00; Stop 02/21/18 at 18:00; Status DC Meropenem 500 mg/ Sodium Chloride 50 ml @ 100 mls/hr Q8HRS IV Last administered on 02/28/18at 05:23; Start 02/21/18 at 17:00; Stop 02/28/18 at 10 :58; Status DC Insulin Human Lispro (HumaLOG) 10 units 1X ONCE SQ Last administered on at 17:27; Start 02/21/18 at 17:00; Stop 02/21/18 at 17:01; Status DC Sodium Chloride 1,000 ml @ 166.667 mls/hr Q6H IV Last administered on at 18:24; Start 02/21/18 at 18:24; Stop 02/21/18 at 19:43; Status DC Dobutamine HCl/ Dextrose 250 ml @ 0 mls/hr CONT PRN IV SEE I/O RECORD; Start 02/21/18 at 18:30; Stop 02/21/18 at 18:35; Status DC Acetaminophen/ Hydrocodone Bitart (Lortab 5/325) 1 tab PRN Q4HRS PRN PO PAIN Last administered on 02/25/18at 09:54; Start 02/21/18 at 19:15 Acetaminophen (Tylenol) 500 mg PRN Q6HRS PRN PO HEADACHE / TEMP Last administered on 02/24/18at 09:07; Start 02/21/18 at 19:15 Ondansetron HCl (Zofran) 4 mg PRN Q6HRS PRN IV NAUSEA/VOMITING; Start at 19:15 Ondansetron HCl (Zofran Odt) 4 mg PRN Q6HRS PRN PO NAUSEA/VOMITING; Start at 19:15 Insulin Human Lispro (HumaLOG) 0-9 UNITS TIDWMEALS SQ Last administered on at 17:00; Start 02/22/18 at 08:00 Dextrose (Dextrose 50%-Water Syringe) 12.5 gm PRN Q15MIN PRN IV SEE COMMENTS; Start 02/21/18 at 19:15 Prochlorperazine Edisylate (Compazine) 5 mg PACU PRN PRN IV NAUSEA, MRX1; Start 02/23/18 at 07:00; Stop 02/24/18 at 06:59; Status DC Hydromorphone HCl (Dilaudid) 0.5 mg PRN Q10MIN PRN IV SEV PAIN, Second choice; Start 02/23/18 at 07:00; Stop 02/24/18 at 06:59; Status DC Lidocaine HCl (Xylocaine-Mpf 1% 2ml Vial) 2 ml PRN 1X PRN ID IV START; Start 02/23/18 at 07:00; Stop 02/24/18 at 06:59; Status DC Ringer's Solution 1,000 ml @ 30 mls/hr Q24H IV ; Start 02/23/18 at 07:00; Stop 02/23/18 at 18:59; Status DC Morphine Sulfate (Morphine Sulfate) 1 mg PRN Q10MIN PRN IV SEVERE PAIN; Start 02/23/18 at 07:00; Stop 02/24/18 at 06:59; Status DC Fentanyl Citrate (Fentanyl 2ml Vial) 50 mcg PRN Q5MIN PRN IV MODERATE TO SEVERE PAIN; Start 02/23/18 at 07:00; Stop 02/24/18 at 06:59; Status DC Fentanyl Citrate (Fentanyl 2ml Vial) 25 mcg PRN Q5MIN PRN IV MILD PAIN; Start 02/23/18 at 07:00; Stop 02/24/18 at 06:59; Status DC Ondansetron HCl (Zofran) 4 mg PRN Q6HRS PRN IV NAUSEA/VOMITING; Start at 07:00; Stop 02/24/18 at 06:59; Status DC Rocuronium [place] (Zemuron) 50 mg STK-MED ONCE .ROUTE ; Start 02/23/18 at 10: 01; Stop 02/23/18 at 10:02; Status DC Fentanyl Citrate (Fentanyl 2ml Vial) 100 mcg STK-MED ONCE .ROUTE ; Start at 10:01; Stop 02/23/18 at 10:02; Status DC Sevoflurane (Ultane) 30 ml STK-MED ONCE IH ; Start 02/23/18 at 10:01; Stop at 10:02; Status DC Propofol 20 ml @ As Directed STK-MED ONCE IV ; Start 02/23/18 at 10:02; Stop 02/23/18 at 10:03; Status DC Phenylephrine HCl (PHENYLEPHRINE in 0.9% NACL PF) 1 mg STK-MED ONCE IV ; Start 02/23/18 at 10:02; Stop 02/23/18 at 10:03; Status DC Dexamethasone Sodium Phosphate (Decadron) 20 mg STK-MED ONCE .ROUTE ; Start at 10:02; Stop 02/23/18 at 10:03; Status DC Ondansetron HCl (Zofran) 4 mg STK-MED ONCE .ROUTE ; Start 02/23/18 at 10:02; Stop 02/23/18 at 10:03; Status DC Sodium Chloride 1,000 ml @ 75 mls/hr [id number] IV Last administered on at 15:50; Start 02/23/18 at 10:30; Stop 02/26/18 at 13:05; Status DC Bupivacaine HCl/ Epinephrine Bitart (Sensorcain-Mpf Epi 0.5%-1:[id number]) 30 ml STK -MED ONCE .ROUTE ; Start 02/23/18 at 09:46; Stop 02/23/18 at 10:47; Status DC Bupivacaine HCl/ Epinephrine Bitart (Marcaine-Epi 0.5%-1:[id number]) 50 ml STK-MED ONCE .ROUTE ; Start 02/23/18 at 09:48; Stop 02/23/18 at 10:48; Status DC Neostigmine Methylsulfate (Neostigmine Methylsulfate) 5 mg STK-MED ONCE .ROUTE ; Start 02/23/18 at 11:39; Stop 02/23/18 at 11:40; Status DC Glycopyrrolate (Robinul) 1 mg STK-MED ONCE .ROUTE ; Start 02/23/18 at 11:39; Stop 02/23/18 at 11:40; Status DC Lansoprazole (Prevacid) 30 mg DAILYAC PO Last administered on 02/28/18at 09:02 ; Start 02/24/18 at 07:30 Insulin Human Lispro (HumaLOG) 4 units 1X ONCE SQ Last administered on at 21:50; Start 02/23/18 at 21:30; Stop 02/23/18 at 21:31; Status DC Ciprofloxacin (Cipro) 500 mg BID PO ; Start 02/28/18 at 12:00 Doxycycline Hyclate (Vibra-Tab) 100 mg BID PO ; Start 02/28/18 at 12:00 Active Scripts Active Vitamin D2 (Ergocalciferol (Vitamin D2)) 50,000 Unit Capsule 50,000 Unit PO WEEKLY 4 Days Tradjenta (Linagliptin) 5 Mg Tablet 5 Mg PO DAILY 30 Days Glucophage (Metformin Hcl) 500 Mg Tablet 500 Mg PO TIDWMEALS 30 Days Culturelle (Lactobacillus Rhamnosus Gg) 1 Each Cap.sprink 1 Cap PO BID 30 Days Reported Zofran Odt (Ondansetron) 4 Mg Tab.rapdis 1 Tab SL PRN Q8HRS PRN Hydrochlorothiazide Tablet (Hydrochlorothiazide) 12.5 Mg Tablet 1 Tab PO DAILY Benazepril Hcl 20 Mg Tablet 0.5 Tab PO DAILY Norvasc (Amlodipine Besylate) 10 Mg Tablet 5 Mg PO DAILY Potassium Chloride 10 Meq Capsule.er 10 Meq PO DAILY Ferrous Sulfate 325 Mg Tablet 325 Mg PO BID Fenofibrate (Fenofibrate Nanocrystallized) 48 Mg Tablet 48 Mg PO DAILY Sucralfate 1 Gm Tablet 1 Tab PO BID Omeprazole 40 Mg Capsule. 1 Cap PO DAILY Atorvastatin Calcium 10 Mg Tablet 10 Mg PO HS Vitals/I & O Vital Sign - Last 24 Hours 02/27/18 02/27/18 02/27/18 02/27/18 15:00 19:00 20:00 23:00 Temp 98.8 98.5 98.7 98.8 98.5 98.7 Pulse 75 78 79 Resp 14 14 14 B/P (MAP) 121/61 (81) 124/62 (82) 132/66 (88) Pulse Ox 96 96 94 O2 Delivery Room Air Room Air Room Air Room Air 02/28/18 02/28/18 02/28/18 02/28/18 03:00 07:00 07:10 09:03 Temp 97.9 98.2 97.9 98.2 Pulse 75 61 61 Resp 14 16 B/P (MAP) 115/56 (75) 137/64 (88) 137/64 Pulse Ox 96 94 O2 Delivery Room Air Room Air Room Air 02/28/18 11:24 Temp 98.3 98.3 Pulse 64 Resp 16 B/P (MAP) 134/62 (86) Pulse Ox 98 O2 Delivery Room Air Intake and Output 02/27/18 02/27/18 02/28/18 15:00 23:00 07:00 Intake Total 300 ml Output Total 1200 ml 0 ml Balance 300 ml -1200 ml 0 ml Nutrition Consultation Dietary Evaluation: Comments: continue with diet as ordered REC mvi, vit c per wound protocal Expected Outcomes/Goals: to meet > 75% est nutr needs improved wound status Malnutrition Findings: Body Fat Depletion (Non Severe: Mod to Severe Weight Status: Underweight DENNIS GAYLE III DO Feb 28, 2018 11:38
[2018-02-28] MEDS ORDERED: DOXYCYCLINE HYCLATE 100 MG TABLET PO SCH (12:00)
[2018-02-28] MEDS ORDERED: CIPROFLOXACIN HCL 250 MG TABLET. PO SCH (12:00)
--- NOTE | 2018-02-28 14:43 | DISCH ---
DISCHARGE DISCHARGE INFORMATION: CONDITION ON DISCHARGE: Stable CODE STATUS: Code Status: Full USP: SNF STAY <30 DAYS: Yes HOSPICE: HOSPICE: No HOSPICE EVAL & TREAT: No LTAC: ADMIT TO LTAC: No POST DISCHARGE ORDERS: ACTIVITY ORDERS: No restrictions WEIGHT BEARING STATUS: No restrictions DIET AFTER DISCHARGE: Cardiac CHECKS AFTER DISCHARGE: CHECKS AFTER DISCHARGE: Check blood sugar, ac/hs TREATMENT/EQUIPMENT ORDERS: ADAPTIVE EQUIPMENT NEEDED: None RESPIRATORY EQUIPMENT NEEDED: Oxygen Physical Therapy For: Evalulation/Treatment Occupational Therapy For: Evaluation/Treatment DISCHARGE MEDICATIONS: Home Meds Active Scripts Ergocalciferol (Vitamin D2) (VITAMIN D2) 50,000 Unit Capsule, 64158 UNIT PO WEEKLY for 4 Days, #1 CAP 6 Refills Prov:MARSHAL MORSE MD 08/18/17 Linagliptin (TRADJENTA) 5 Mg Tablet, 5 MG PO DAILY for 30 Days, #30 TAB 4 Refills Prov:MARSHAL MORSE MD 08/18/17 Metformin Hcl (GLUCOPHAGE) 500 Mg Tablet, 500 MG PO TIDWMEALS for 30 Days, #90 TAB 4 Refills Prov:MARSHAL MORSE MD 08/18/17 Lactobacillus Rhamnosus Gg (CULTURELLE) 1 Each Cap.sprink, 1 CAP PO BID for 30 Days, #60 CAP 0 Refills Prov:MARSHAL MORSE MD 08/18/17 Reported Medications Ondansetron (ZOFRAN ODT) 4 Mg Tab.rapdis, 1 TAB SL PRN Q8HRS PRN for NAUSEA, # 15 TAB 06/09/17 Hydrochlorothiazide (HYDROCHLOROTHIAZIDE TABLET) 12.5 Mg Tablet, 1 TAB PO DAILY , #30 TAB 5 Refills 06/09/17 Benazepril Hcl (BENAZEPRIL HCL) 20 Mg Tablet, 0.5 TAB PO DAILY, #30 TAB 5 Refills 06/09/17 Amlodipine Besylate (NORVASC) 10 Mg Tablet, 5 MG PO DAILY, TAB 06/09/17 Potassium Chloride (POTASSIUM CHLORIDE) 10 Meq Capsule.er, 10 MEQ PO DAILY, TAB.SR 10/27/16 Ferrous Sulfate (FERROUS SULFATE) 325 Mg Tablet, 325 MG PO BID, TAB 10/27/16 Fenofibrate Nanocrystallized (FENOFIBRATE) 48 Mg Tablet, 48 MG PO DAILY, TAB 10/27/16 Sucralfate (SUCRALFATE) 1 Gm Tablet, 1 TAB PO BID, #90 TAB 11 Refills 07/02/15 Omeprazole (OMEPRAZOLE) 40 Mg Capsule.dr, 1 CAP PO DAILY, #30 CAP 3 Refills 07/02/15 Atorvastatin Calcium (ATORVASTATIN CALCIUM) 10 Mg Tablet, 10 MG PO HS for FOR CHOLESTEROL, #30 TAB 0 Refills 05/31/14 DENNIS GAYLE III DO Feb 28, 2018 14:43
[2018-02-28 15:00] VITALS: BP 124/60
--- NOTE | 2018-03-07 18:19 | DS ---
DATE OF DISCHARGE: 02/28/2018 ADMISSION DIAGNOSES: 1. Sepsis. 2. Wounds. 3. Lactic acidosis. 4. Dehydration with azotemia. 5. Hyperglycemia. 6. Progression of dementia. DISCHARGE DIAGNOSES: 1. Progression of dementia with probable failure to thrive. 2. Postoperative debridement of sacral decubitus ulcer. 3. History of dementia, wheelchair bound. 4. Hypertension. 5. Acute kidney injury, chronic kidney disease. 6. Lactic acidosis. 7. Gastroesophageal reflux disease. 8. Dementia. 9. Osteoporosis. 10. Hyperlipidemia. CONSULTS: Dr. Marie. HOSPITAL COURSE: The patient is a pleasant elderly female who initially presented from a alf. She apparently had been living there since she was a child. She had an ischial wound and dementia. Basically, we admitted the patient, gave her IV antibiotics and consulted General Surgery. She was taken for debridement. I spoke with the inserter operator when she was first admitted and apparently, the facility she is at really is not quite high enough level of care. Once we got the patient stabilized, she was discharged to a higher level of care facility. DISPOSITION: Skilled. ACTIVITY: As tolerated. DIET: Low sodium. MEDICATIONS: Please see the MRAD. TOTAL TIME ON DISCHARGE: 38 minutes. DENNIS GAYLE DO DR: MARIA D/jeffrey JOB#: [id number] / [id number]
== END 2018-02-28 17:18 | disposition home or self-care (01) | DRG 853 ==
LOC: 4 NORTH 12:41
PROVIDERS: ADMIT Internal Medicine; ATTEND Internal Medicine
PROC: 0JB70ZZ Excision of Back Subcutaneous Tissue and Fascia, Open Approach (ICD-10-PCS; principal; 2018-02-23 11:00)
DX: A41.9 Sepsis, unspecified organism (principal); E43 Unspecified severe protein-calorie malnutrition; N17.0 Acute kidney failure with tubular necrosis; Z68.1 Body mass index [BMI] 19.9 or less, adult; F03.90 Unspecified dementia, unspecified severity, without behavioral disturbance, psychotic disturbance, mood disturbance, and anxiety; E78.5 Hyperlipidemia, unspecified; I12.9 Hypertensive chronic kidney disease with stage 1 through stage 4 chronic kidney disease, or unspecified chronic kidney disease; N18.3 Chronic kidney disease, stage 3 (moderate); M81.0 Age-related osteoporosis without current pathological fracture; K21.9 Gastro-esophageal reflux disease without esophagitis; Z51.5 Encounter for palliative care; E11.22 Type 2 diabetes mellitus with diabetic chronic kidney disease; L89.219 Pressure ulcer of right hip, unspecified stage; L89.159 Pressure ulcer of sacral region, unspecified stage; D64.9 Anemia, unspecified; Z82.49 Family history of ischemic heart disease and other diseases of the circulatory system; Z88.6 Allergy status to analgesic agent; Z88.1 Allergy status to other antibiotic agents; Z88.2 Allergy status to sulfonamides; Z83.3 Family history of diabetes mellitus; Z99.3 Dependence on wheelchair
CPT/HCPCS: 36415; 80048; 80053; 82962; 83605; 84145; 85007; 85025; 87040; 87641; J1100; J1815; J2185; J2370; J2405; J2704; J2710; J3010; J3490; J7030; 92526; 92610; A4461

== ENCOUNTER → 2018-02-21 | Outpatient (CLI) | payer MEDICARE, OTHER ==
[2017-08-18 11:00] VITALS: BP 95/52
== END | disposition home or self-care (01) ==
LOC: PMGWOUND 09:10
PROVIDERS: ATTEND Emergency Medicine Undersea and Hyperbaric Medicine
DX: E11.622 Type 2 diabetes mellitus with other skin ulcer (principal); L98.491 Non-pressure chronic ulcer of skin of other sites limited to breakdown of skin; L89.223 Pressure ulcer of left hip, stage 3; L89.219 Pressure ulcer of right hip, unspecified stage; L89.322 Pressure ulcer of left buttock, stage 2; L89.153 Pressure ulcer of sacral region, stage 3; I10 Essential (primary) hypertension; F03.90 Unspecified dementia, unspecified severity, without behavioral disturbance, psychotic disturbance, mood disturbance, and anxiety; K21.9 Gastro-esophageal reflux disease without esophagitis; Z85.3 Personal history of malignant neoplasm of breast; M19.90 Unspecified osteoarthritis, unspecified site
CPT/HCPCS: 99214; G0463

== ENCOUNTER → 2018-03-07 | Outpatient (CLI) | payer MEDICARE, OTHER ==
[2018-02-28 15:00] VITALS: BP 124/60
== END | disposition home or self-care (01) ==
LOC: PMGWOUND 09:16
PROVIDERS: ATTEND Preventive Medicine Undersea and Hyperbaric Medicine
DX: E11.622 Type 2 diabetes mellitus with other skin ulcer (principal); L98.492 Non-pressure chronic ulcer of skin of other sites with fat layer exposed; L89.210 Pressure ulcer of right hip, unstageable; F88 Other disorders of psychological development; I12.9 Hypertensive chronic kidney disease with stage 1 through stage 4 chronic kidney disease, or unspecified chronic kidney disease; E11.22 Type 2 diabetes mellitus with diabetic chronic kidney disease; N18.9 Chronic kidney disease, unspecified; F03.90 Unspecified dementia, unspecified severity, without behavioral disturbance, psychotic disturbance, mood disturbance, and anxiety; K21.9 Gastro-esophageal reflux disease without esophagitis; M19.90 Unspecified osteoarthritis, unspecified site; M81.0 Age-related osteoporosis without current pathological fracture; E78.5 Hyperlipidemia, unspecified; Z85.3 Personal history of malignant neoplasm of breast
CPT/HCPCS: 11042; 11045; 97605

== ENCOUNTER → 2018-03-16 | Outpatient (CLI) | payer MEDICARE, OTHER ==
[2018-02-28 15:00] VITALS: BP 124/60
== END | disposition home or self-care (01) ==
LOC: PMGWOUND 09:26
PROVIDERS: ATTEND Preventive Medicine Undersea and Hyperbaric Medicine
DX: E11.622 Type 2 diabetes mellitus with other skin ulcer (principal); L98.412 Non-pressure chronic ulcer of buttock with fat layer exposed; L89.310 Pressure ulcer of right buttock, unstageable; L97.828 Non-pressure chronic ulcer of other part of left lower leg with other specified severity; F88 Other disorders of psychological development; I12.9 Hypertensive chronic kidney disease with stage 1 through stage 4 chronic kidney disease, or unspecified chronic kidney disease; E11.22 Type 2 diabetes mellitus with diabetic chronic kidney disease; N18.9 Chronic kidney disease, unspecified; E78.5 Hyperlipidemia, unspecified; M19.90 Unspecified osteoarthritis, unspecified site; K21.9 Gastro-esophageal reflux disease without esophagitis; F03.90 Unspecified dementia, unspecified severity, without behavioral disturbance, psychotic disturbance, mood disturbance, and anxiety; M81.0 Age-related osteoporosis without current pathological fracture; Z85.3 Personal history of malignant neoplasm of breast
CPT/HCPCS: 97597; 97598

== ENCOUNTER → 2018-03-30 | Outpatient (CLI) | payer MEDICARE, OTHER ==
[2018-02-28 15:00] VITALS: BP 124/60
[~2018-03-30] MED LIST changes: +HYDR-2145 PO; -HYDR25TA9 PO
== END | disposition home or self-care (01) ==
LOC: PMGWOUND 09:30
PROVIDERS: ATTEND Preventive Medicine Undersea and Hyperbaric Medicine
DX: E11.622 Type 2 diabetes mellitus with other skin ulcer (principal); L98.411 Non-pressure chronic ulcer of buttock limited to breakdown of skin; L89.313 Pressure ulcer of right buttock, stage 3; L98.491 Non-pressure chronic ulcer of skin of other sites limited to breakdown of skin; L89.153 Pressure ulcer of sacral region, stage 3; F88 Other disorders of psychological development; I12.9 Hypertensive chronic kidney disease with stage 1 through stage 4 chronic kidney disease, or unspecified chronic kidney disease; E11.22 Type 2 diabetes mellitus with diabetic chronic kidney disease; N18.9 Chronic kidney disease, unspecified; F03.90 Unspecified dementia, unspecified severity, without behavioral disturbance, psychotic disturbance, mood disturbance, and anxiety; K21.9 Gastro-esophageal reflux disease without esophagitis; M19.90 Unspecified osteoarthritis, unspecified site; M81.0 Age-related osteoporosis without current pathological fracture; E78.5 Hyperlipidemia, unspecified; Z85.3 Personal history of malignant neoplasm of breast
CPT/HCPCS: 97597; 97598

== ENCOUNTER → 2018-04-06 | Outpatient (CLI) | payer MEDICARE, OTHER ==
[~2018-04-06] MED LIST changes: +LINA5TAB PO; -LINA5TAB4 PO
== END | disposition home or self-care (01) ==
LOC: PMGWOUND 09:21
PROVIDERS: ATTEND Preventive Medicine Undersea and Hyperbaric Medicine
DX: E11.622 Type 2 diabetes mellitus with other skin ulcer (principal); L89.313 Pressure ulcer of right buttock, stage 3; L89.323 Pressure ulcer of left buttock, stage 3; L98.411 Non-pressure chronic ulcer of buttock limited to breakdown of skin; L89.153 Pressure ulcer of sacral region, stage 3; L89.213 Pressure ulcer of right hip, stage 3; L89.222 Pressure ulcer of left hip, stage 2; L98.491 Non-pressure chronic ulcer of skin of other sites limited to breakdown of skin; F88 Other disorders of psychological development; E11.22 Type 2 diabetes mellitus with diabetic chronic kidney disease; I12.9 Hypertensive chronic kidney disease with stage 1 through stage 4 chronic kidney disease, or unspecified chronic kidney disease; N18.3 Chronic kidney disease, stage 3 (moderate); F03.90 Unspecified dementia, unspecified severity, without behavioral disturbance, psychotic disturbance, mood disturbance, and anxiety; K21.9 Gastro-esophageal reflux disease without esophagitis; M19.90 Unspecified osteoarthritis, unspecified site; M81.0 Age-related osteoporosis without current pathological fracture; E78.5 Hyperlipidemia, unspecified; Z85.3 Personal history of malignant neoplasm of breast; Z88.6 Allergy status to analgesic agent; Z88.1 Allergy status to other antibiotic agents; Z88.2 Allergy status to sulfonamides
CPT/HCPCS: 99215

== ENCOUNTER → 2018-04-11 | Outpatient (CLI) | payer MEDICARE, OTHER | END | disposition home or self-care (01) | LOC: PMGWOUND 09:18 | PROVIDERS: ATTEND Preventive Medicine Undersea and Hyperbaric Medicine | DX: E11.622 Type 2 diabetes mellitus with other skin ulcer (principal); L89.313 Pressure ulcer of right buttock, stage 3; L89.153 Pressure ulcer of sacral region, stage 3; L89.223 Pressure ulcer of left hip, stage 3; L89.323 Pressure ulcer of left buttock, stage 3; L98.412 Non-pressure chronic ulcer of buttock with fat layer exposed; L97.821 Non-pressure chronic ulcer of other part of left lower leg limited to breakdown of skin; I12.9 Hypertensive chronic kidney disease with stage 1 through stage 4 chronic kidney disease, or unspecified chronic kidney disease; E11.22 Type 2 diabetes mellitus with diabetic chronic kidney disease; N18.9 Chronic kidney disease, unspecified; F03.90 Unspecified dementia, unspecified severity, without behavioral disturbance, psychotic disturbance, mood disturbance, and anxiety; K21.9 Gastro-esophageal reflux disease without esophagitis; M19.90 Unspecified osteoarthritis, unspecified site; E78.5 Hyperlipidemia, unspecified; M81.0 Age-related osteoporosis without current pathological fracture; Z85.3 Personal history of malignant neoplasm of breast | CPT/HCPCS: 97597; 97598; 97605 ==

== ENCOUNTER → 2018-04-18 | Outpatient (CLI) | payer MEDICARE, OTHER ==
[~2018-04-18] MED LIST changes: +CLOT15CR4 TP; +INSU100I13 SQ; +LORA2ORA7 SL; +MORP100S3 SL
== END | disposition home or self-care (01) ==
LOC: PMGWOUND 09:30
PROVIDERS: ATTEND Preventive Medicine Undersea and Hyperbaric Medicine
DX: E11.622 Type 2 diabetes mellitus with other skin ulcer (principal); L89.153 Pressure ulcer of sacral region, stage 3; L89.223 Pressure ulcer of left hip, stage 3; L98.492 Non-pressure chronic ulcer of skin of other sites with fat layer exposed; L89.313 Pressure ulcer of right buttock, stage 3; L97.812 Non-pressure chronic ulcer of other part of right lower leg with fat layer exposed; L89.323 Pressure ulcer of left buttock, stage 3; L98.412 Non-pressure chronic ulcer of buttock with fat layer exposed; F88 Other disorders of psychological development; I12.9 Hypertensive chronic kidney disease with stage 1 through stage 4 chronic kidney disease, or unspecified chronic kidney disease; E11.22 Type 2 diabetes mellitus with diabetic chronic kidney disease; N18.3 Chronic kidney disease, stage 3 (moderate); F03.90 Unspecified dementia, unspecified severity, without behavioral disturbance, psychotic disturbance, mood disturbance, and anxiety; K21.9 Gastro-esophageal reflux disease without esophagitis; M19.90 Unspecified osteoarthritis, unspecified site; E78.5 Hyperlipidemia, unspecified; M81.0 Age-related osteoporosis without current pathological fracture; Z85.3 Personal history of malignant neoplasm of breast
CPT/HCPCS: 11042; 11045; 97597; 97605